=== PATIENT | female | born 1970 | race Caucasian/White ===

== ENCOUNTER 2017-01-07 19:29 | Emergency (ER) | payer MEDICARE ==
[~2017-01-07] VITALS: Ht 162.6 cm; Wt 124.5 kg
[2017-01-07 19:29] VITALS: BP 143/62
[~2017-01-07 19:29] MED LIST: /ESOM40CA PO; ALBU17IN INH; ALBU83IN NEB; ALPR0.5T PO; ALPR0.5T3 PO; ATEN100T PO; BUPR150T3 PO; CARI350T19 PO; COLA100C5 PO; HYDR-3716 PO; HYDR7.5T38 PO; IBUP-1022 PO; IBUP80TA PO; LEVA750T7 PO; LEVO125T3 PO; NEXI40CA PO; NORC1TAB4 PO; NORT25CA2 PO; PARO40TA PO; PARO40TA3 PO; PRED10PA PO; PRIN10TA PO; SUMA50TA2 PO; SYNT137T7 PO; VENL75CA47 PO; VICO5TAB16 PO; VITA500055 PO; VITATAB73 PO; ZETI10TA30 PO
[2017-01-07] MEDS ORDERED: prednisoLONE (PRELONE) 15MG/5ML SYRUP UDC PO ONE (20:00)
[2017-01-07] MEDS ORDERED: LIDOCAINE VISCOUS 2% SOLN 15ML UDC PO ONE (20:30)
== END 2017-01-07 20:41 | disposition home or self-care (01) ==
LOC: M ED 19:29
DX: B34.9 Viral infection, unspecified (principal); I10 Essential (primary) hypertension; G43.909 Migraine, unspecified, not intractable, without status migrainosus; E07.9 Disorder of thyroid, unspecified; Z79.899 Other long term (current) drug therapy; Z88.0 Allergy status to penicillin; Z88.8 Allergy status to other drugs, medicaments and biological substances; Z91.041 Radiographic dye allergy status

== ENCOUNTER 2017-02-23 10:53 | Inpatient (IN) | payer MEDICARE ==
[~2017-02-23] VITALS: Ht 160 cm; Wt 123.6 kg
[2017-02-23 11:19] LABS: BASO % 0.8 % (0.0-1.0); EOS # 0.3 K/mm3 (0.0-0.50); EOS % 4.3 % (0.0-3.0); LARGE UNSTAINED CELL # 0.2 K/mm3 (0.0-0.4); LARGE UNSTAINED CELL % 2.3 % (0.0-4.0); LYMPH % 30.5 % (24.0-44.0); MEAN CORPUSCULAR HEMOGLOBIN 27.7 pg (27.0-33.0); MEAN CORPUSCULAR HGB CONC 32.5 g/dl (32.0-36.5); MEAN CORPUSCULAR VOLUME 85.3 fl (80.0-96.0); MONO # 0.4 K/mm3 (0.0-0.8); MONO % 6.2 % (0.0-5.0); NEUTROPHILS # 3.8 K/mm3 (1.8-7.7); PLATELET COUNT, AUTOMATED 275 k/mm3 (150-450); RED CELL DISTRIBUTION WIDTH 14.2 % (11.5-14.5); WHITE BLOOD COUNT 6.7 K/mm3 (4.0-10.0)
[2017-02-23 11:25] LABS: INR 0.94
[2017-02-23 11:34] LABS: CONTROL LINE HCG INT CTR LINE PRESENT
[2017-02-23 11:44] LABS: ALBUMIN 3.1 GM/DL (3.2-5.2); ALBUMIN/GLOBULIN RATIO 0.84 (1.00-1.93); ALKALINE PHOSPHATASE 88 U/L (45-117); ALT/SGPT 108 U/L (12-78); ANION GAP 7 MEQ/L (8-16); AST/SGOT 79 U/L (15-37); BILIRUBIN,DIRECT 0.1 MG/DL (0.0-0.2); BILIRUBIN,TOTAL 0.3 MG/DL (0.2-1.0); BLOOD UREA NITROGEN 6 MG/DL (7-18); CALCIUM LEVEL 8.4 MG/DL (8.5-10.1); CARBON DIOXIDE LEVEL 30 MEQ/L (21-32); CHLORIDE LEVEL 108 MEQ/L (98-107); CREATININE FOR GFR 0.74 MG/DL (0.55-1.02); FREE T4 1.19 NG/DL (0.76-1.46); GLOMERULAR FILTRATION RATE > 60.0 (>58); GLUCOSE, FASTING 82 MG/DL (70-105); SODIUM LEVEL 145 MEQ/L (136-145); TOTAL PROTEIN 6.8 GM/DL (6.4-8.2)
[2017-02-23] MEDS ORDERED: NITROGLYCERIN 0.4 MG SUBL TABLET SL PRN (12:30)
[2017-02-23] MEDS ORDERED: ASPIRIN 81 MG CHEW TABLET PO ONE (12:30)
[2017-02-23 12:35] VITALS: BP 131/60
[2017-02-23] MEDS ORDERED: ACETAMINOPHEN TAB 650MG DOSE (2X325MG) As Ordered ONE (12:47)
[2017-02-23] MEDS ORDERED: ACETAMINOPHEN TAB 650MG DOSE (2X325MG) PO ONE (13:00)
[2017-02-23] MEDS ORDERED: ONDANSETRON 4MG/2ML VIAL (J2405) IV PRN (14:00)
[2017-02-23] MEDS ORDERED: ACETAMINOPHEN TAB 650MG DOSE (2X325MG) PO PRN (14:00)
[2017-02-23] MEDS ORDERED: MAGIC MOUTHWASH SUSPENSION BTL SS PRN (14:00)
[2017-02-23] MEDS ORDERED: HYDR-3713 PO (14:01)
[2017-02-23] MEDS ORDERED: SYNT137T7 PO (14:01)
[2017-02-23] MEDS ORDERED: FLIN1CHW PO (14:02)
[2017-02-23] MEDS ORDERED: ALPRAZolam 0.5 MG TAB PO PRN ×2 (14:15)
--- NOTE | 2017-02-23 14:48 | HPE ---
DATE OF ADMISSION: 02/23/2017 This is a patient of Dr. Mehdi Harris. Health Information Systems Technician is Dr. Chin. CHIEF COMPLAINT: Chest pain. HISTORY OF PRESENT ILLNESS: This is a 46-year-old female who developed leg pain approximately on 02/14/2017 which was prior to a car trip in her brand [facility] to [facility] where she was [place] drive [place]. She arrived in [facility] and found that her grandmother had back in [place], so after an exceedingly short stay they drove back again to the [facility] to attend the which is scheduled for tomorrow. She has developed bilateral lower extremity swelling which has been intermittent. It is better now. She has had chest discomfort which she describes as pressure-like, associated with shortness of breath. It has radiated to her neck and jaw. It again comes and goes. She has obstructive sleep apnea and has not been compliant with her machine for two months and she has had recent upper respiratory infections and sore throat which have been treated with antibiotics and Valtrex. She does also take care of young children when she is home. ALLERGIES: She has allergies reported to IV CONTRAST MEDIA which causes rash and difficulty in breathing, DULOXETINE and PENICILLIN. MEDICATIONS AT HOME: Are listed as Zetia, Paxil, Xanax as needed and at bedtime, Nexium, atenolol, ibuprofen, vitamin D. PAST MEDICAL HISTORY: Notable for: 1. Anxiety. 2. Chronic back pain. 3. Depression. 4. Gastroesophageal reflux disease (GERD). 5. Hypothyroidism. 6. Obstructive sleep apnea on continuous positive airway pressure (CPAP). 7. Mitral valve prolapse. 8. Lung nodules, which she follows with Dr. Chin. 9. Irritable bowel syndrome. 10. Fibromyalgia. 11. Hypoglycemia earlier this year. 12. She has morbid obesity and is planned for gastric bypass surgery in early April of 2017. PAST SURGICAL HISTORY: Notable for: 1. Hysterectomy. 2. Cholecystectomy. 3. Appendectomy. 4. Cyst removed from her hand. 5. Tonsillectomy. 6. Hernia repair. SOCIAL HISTORY: The patient is not a smoker. She occasionally drinks alcohol. She is a life-long [facility] resident. FAMILY HISTORY: Notable for a mother who is 62 with a history of heart disease and diabetes. A father who is 67 with a history of heart disease, diabetes, and currently under lung cancer treatment. REVIEW OF SYSTEMS: Notable for no fever. No chills. No sputum production. She has chest pain. No orthopnea but she does have intermittent episodes of palpitations at rest, not associated with anxiety although she does say she has been under a lot of stress related to the recent drive and the of her grandmother. No diarrhea. No change in her urinary symptoms. No focal weakness. Otherwise unremarkable. PHYSICAL EXAMINATION: Temperature is 97.8, pulse is 54. She is in sinus on the monitor and on EKG. Respiratory 16, blood pressure 128/78, 98% on room air. Body mass index is not recorded but her weight is 124 kg. She is awake, pleasantly conversant, in no acute distress, alert and oriented times three. Sinuses are nontender. Pupils are equal, round, and reactive. Mucous membranes are moist. She has a single ulcer on the right side of her soft palate. She has no tonsils. There is no erythema or exudate in her oropharynx. Neck is supple. No cervical or supraclavicular adenopathy, but thick. Breathing is symmetrical. I:E ratio is 1:3. Distant sounding. No wheezes, rales, or rhonchi No costovertebral angle (CVA) tenderness. No sacral edema. Heart is distant sounding, normal S1, S2, is bradycardic. Radial pulses are 2+, capillary refill is less than two seconds. She has a number of high quality tattoos. Abdomen is soft, doughy, nontender. There is trace bilateral lower extremity edema. Strength is symmetrical in the upper and lower extremities. She has a normal mood and affect. LABORATORY DATA: Sodium is 145, potassium 4, chloride 108, carbon dioxide 30, BUN 6, creatinine 0.74, and glucose of 82. AST of 79, ALT 108. CK and troponin are negative. BNP is 208. TSH is 6.85 and free T4 is within normal limits. HCG is negative. D-dimer was elevated to 517. Lower extremity Doppler is unremarkable. Chest x-ray shows no infiltrate. It is difficult to interpret due to body habitus. ASSESSMENT: This is a 46-year-old with chest pain. Pulmonary embolism must be considered. The patient is admitted for observation status to further elucidate the cause of this discomfort. The patient is currently pain free. PLAN: 1. Respiratory. Nuclear medicine scan is ordered for tomorrow. I have started the patient on Eliquis. There is no evidence of deep vein thrombosis (DVT) in the lower extremities. I believe that her symptoms are most likely related to untreated sleep apnea and perhaps anxiety but we will rule out pulmonary embolism and begin treatment for the same. Also, we will cycle troponins and monitor her on telemetry. She is bradycardic. We will withhold her beta blockade and should consider a lower dose at the time of discharge. 2. The patient has hypothyroidism and would appear to be appropriately treated, although she is not on a recorded Synthroid dose. This can be checked with the pharmacy team. 3. The patient has a history of depression. We will continue her Paxil. We will also continue her Xanax as previously ordered. We will give Tylenol as needed for pain in the setting of chronic benzodiazepine use. 4. I have asked for the patient to bring in her continuous positive airway pressure (CPAP) machine from home and we will as the respiratory therapist to assist her with its use. 5. The patient has a history of lung nodules. She follows with Dr. Chin. 6. The patient has morbid obesity which complicates care. 7. Social. The patient is planning to leave sometime tomorrow afternoon to attend her grandmother's . Hopefully, medical workup will be done by that time.
[2017-02-23] MEDS: APIXABAN 5 MG TAB (ELIQUIS) PO SCH ×2 (15:00→21:30)
[2017-02-23] MEDS ORDERED: valACYclovir HCL 500 MG TAB PO SCH (17:00)
[2017-02-23 19:00] VITALS: BP 128/66
[2017-02-23 20:09] VITALS: BP 130/70
[2017-02-23] MEDS ORDERED: EZETIMIBE 10 MG TAB (ZETIA) PO SCH (21:00)
[2017-02-23] MEDS ORDERED: PANTOPRAZOLE 40MG TAB (PROTONIX) PO SCH (21:00)
[2017-02-23] MEDS ORDERED: PARoxetine 20 MG TAB PO SCH (21:00)
--- NOTE | 2017-02-23 21:38 | ECGEPIP ---
Stationary ECG Study [facility] - ED Test Date: 2017-02-23 Pat Name: ISAÍAS HARDING Department: Room: - Gender: F Mail Service Coordinator: SCHUYLER : 1970 Requested By: LAYNE Ordonez Order Number: [id number] Reading MD: Sonam Odonnell Measurements Intervals [place] Rate: 50 P: 17 WV: 150 QRS: 12 QRSD: 97 T: 7 QT: 448 QTc: 411 Interpretive Statements SINUS BRADYCARDIA NSTTW ABNORMALITY DECREASED RATE 06/26/16 Electronically Signed On 02-23-2017 21:38:05 EDT by Sonam Odonnell
--- NOTE | 2017-02-23 21:45 | ECGEPIP ---
Stationary ECG Study [facility] - ED Test Date: 2017-02-23 Pat Name: ISAÍAS HARDING Department: Room: [place] [address] Gender: F Oncology Physician: haim : 1970 Requested By: KEVIN Muñoz Order Number: [id number] Reading MD: Sonam Odonnell Measurements Intervals [place] Rate: 53 P: 25 WV: 148 QRS: 15 QRSD: 104 T: 7 QT: 458 QTc: 432 Interpretive Statements SINUS BRADYCARDIA NSTTW ABNORMALITY PRWP SIMILAR 11:06 Electronically Signed On 02-23-2017 21:44:57 EDT by Sonam Odonnell
[2017-02-23 23:58] VITALS: BP 126/69
[2017-02-24 05:05] VITALS: BP 137/65
[2017-02-24 05:32] LABS: MEAN CORPUSCULAR HEMOGLOBIN 27.7 pg (27.0-33.0); MEAN CORPUSCULAR HGB CONC 32.3 g/dl (32.0-36.5); MEAN CORPUSCULAR VOLUME 85.7 fl (80.0-96.0); RED CELL DISTRIBUTION WIDTH 14.3 % (11.5-14.5); WHITE BLOOD COUNT 7.2 K/mm3 (4.0-10.0)
[2017-02-24 05:59] LABS: ANION GAP 9 MEQ/L (8-16); BLOOD UREA NITROGEN 8 MG/DL (7-18); CALCIUM LEVEL 8.4 MG/DL (8.5-10.1); CARBON DIOXIDE LEVEL 27 MEQ/L (21-32); CHLORIDE LEVEL 110 MEQ/L (98-107); CREATININE FOR GFR 0.65 MG/DL (0.55-1.02); GLOMERULAR FILTRATION RATE > 60.0 (>58); GLUCOSE, FASTING 114 MG/DL (70-105); MAGNESIUM LEVEL 2.2 MG/DL (1.8-2.4); POTASSIUM SERUM 3.5 MEQ/L (3.5-5.1); SODIUM LEVEL 146 MEQ/L (136-145)
[2017-02-24 07:15] VITALS: BP 117/55
--- NOTE | 2017-02-24 08:13 | ECGEPIP ---
Stationary ECG Study [facility] Test Date: 2017-02-24 Pat Name: ISAÍAS HARDING Department: Room: - Gender: F Stamping Operator: SAMEER : 1970 Requested By: JUAN Lynn Order Number: [id number] Reading MD: Nazia Wheeler Measurements Intervals [place] Rate: 53 P: 27 NV: 146 QRS: 10 QRSD: 94 T: 7 QT: 458 QTc: 431 Interpretive Statements SINUS BRADYCARDIA EARLY REPOLAR CHANGES STABLE C/W 02/23/17 Electronically Signed On 02-24-2017 8:13:09 EDT by Nazia Wheeler
[2017-02-24] MEDS ORDERED: valACYclovir HCL 500 MG TAB PO SCH (09:00)
[2017-02-24] MEDS: APIXABAN 5 MG TAB (ELIQUIS) PO SCH (09:46)
[2017-02-24 12:00] VITALS: BP 136/60
--- NOTE | 2017-02-24 12:44 | REP ---
DUPLEX EXTREMITY VENOUS ULTRASOUND: The bilateral lower extremities. HISTORY: Chest pain. Swelling. Question DVT. FINDINGS: The deep veins are anechoic and fully compressible from the groin to the popliteal fossa in the left and the right lower extremity. Color flow imaging is homogeneous. Spectral Doppler interrogation demonstrates intact respiratory variation in flow and normal manual augmentation of flow. There is no evidence of deep vein thrombosis. IMPRESSION: Negative bilateral lower extremity duplex venous ultrasound. No evidence of deep vein thrombosis. Signed by Alireza So MD 02/24/2017 03:01 P
--- NOTE | 2017-02-24 13:10 | REP ---
Portable chest x-ray: Sitting AP view. History: Chest pain. Findings: EKG monitoring electrodes overlie the chest. Heart is not felt to be enlarged. Exam quality is inhibited by patient body habitus. No infiltrate is seen. Pulmonary vasculature is not increased. Impression: No active disease. Exam quality is limited by patient body habitus. Signed by Alireza So MD 02/24/2017 03:02 P
[2017-02-24] MEDS ORDERED: SLF 3 ML SYR IV PRN (13:15)
[2017-02-24] MEDS ORDERED: SLF 3 ML SYR IV SCH (14:00)
--- NOTE | 2017-02-24 14:03 | REP ---
Ventilation-perfusion lung scan: History: Chest pain. Technique: 1.0 mCi of technetium-99m DTPA aerosol is utilized for the ventilation study and was followed by a 5.5 mCi dose of technetium-99m MAA given intravenously for the perfusion examination. Eight planar images are required for each portion of the study. Scintigraphic findings: The perfusion study shows normal homogeneous perfusion uptake in both lungs. No perfusion defect is seen. Ventilation study shows homogeneous uptake as well. No defect is seen. Impression: Normal ventilation perfusion lung scan. No evidence to suggest pulmonary embolus. Signed by Alireza So MD 02/24/2017 01:55 P
--- NOTE | 2017-02-24 18:33 | DSES ---
DATE OF ADMISSION: 02/23/2017 DATE OF DISCHARGE: 02/24/2017 PRIMARY CARE PROVIDER: Mehdi Harris CONSULTANTS: None. PROCEDURES: None. COMPLICATIONS: None. ADMISSION/DISCHARGE DIAGNOSES: 1. Chest pain. 2. Anxiety. 3. Chronic back pain. 4. Depression. 5. Gastroesophageal reflux disease. 6. Hypothyroidism. 7. Obstructive sleep apnea (RUPAL), on continuous positive airway pressure (CPAP). 8. Mitral valve prolapse. 9. Lung nodules. 10. Irritable bowel syndrome. 11. Fibromyalgia. 12. Morbid obesity. HOSPITALIZATION COURSE: The patient is a 46-year-old female who presented to [facility] on 02/23/2017 for leg pain and chest pain after long hours of driving. The patient is being worked up to rule out pulmonary embolism and deep vein thrombosis (DVT). Due to allergies to CT angio dye, the patient is scheduled to have a VQ scan performed. Empirically, the patient was started on Eliquis. Lower extremity ultrasound was performed, which showed no DVT and the patient was monitored on telemetry. On 02/24/2017, the patient had a VQ scan performed. Imaging reviewed with the radiologist, and there was no evidence to suggest pulmonary embolism. The patient was determined medically stable for discharge with recommendation to followup with her primary care provider in 1-2 weeks. OBJECTIVE: VITAL SIGNS: Temperature is 97.3, pulse is 56, respirations 18, blood pressure is 117/55, pulse oximetry is 100% in room air. LABORATORY DATA: WBC 7.2, hemoglobin 12.5, hematocrit 38.5, platelet count is 265. Sodium is 146, potassium 3.5, chloride is 110, carbon dioxide is 27, BUN 8, creatinine 0.65, GFR is greater than 60, fasting glucose is 114, calcium is 8.4, magnesium 2.2. BNP is 208. Total protein 6.8, albumin 3.1, lipase 120, free T4 is 1.19. PT is 12.6, INR is 0.94, D-dimer is 517.2. IMAGING STUDIES: Chest x-ray on 02/23/2017 showed no acute disease. Lower extremity Doppler bilaterally showed negative bilateral lower extremity Doppler venous sonogram. No evidence of DVT. A VQ scan on 02/24/2017 showed normal ventilation/perfusion lung scan. No evidence to suggest pulmonary embolism. DISCHARGE MEDICATIONS: - Percocet one tablet by mouth three times a day as needed - alprazolam 0.5 mg by mouth twice a day as needed for anxiety - atenolol 100 mg by mouth nightly - vitamin D3 5000 units by mouth nightly - Nexium 40 mg by mouth nightly - Zetia 10 mg by mouth nightly - ibuprofen 800 mg by mouth every 8 hours as needed - Synthroid 137 mcg by mouth nightly - paroxetine 40 mg by mouth nightly DISCHARGE INSTRUCTIONS: Discontinue lines. Discharge home. Activity as tolerated. Diet as tolerated. Patient should followup with her primary care provider, Dr. Mehdi Harris, in 1-2 weeks. DISCHARGE CONDITION: Stable. DISCHARGE TIME: Greater than 30 minutes.
== END 2017-02-24 14:44 | disposition home or self-care (01) | DRG 313 ==
LOC: M ED 10:53 → M ED INP 13:53 → M PCU 18:45
PROVIDERS: ADMIT Internal Medicine; ATTEND Internal Medicine
DX: R07.9 Chest pain, unspecified (principal); Z68.42 Body mass index [BMI] 45.0-49.9, adult; F41.9 Anxiety disorder, unspecified; F32.9 Major depressive disorder, single episode, unspecified; K21.9 Gastro-esophageal reflux disease without esophagitis; E03.9 Hypothyroidism, unspecified; G47.33 Obstructive sleep apnea (adult) (pediatric); Z99.89 Dependence on other enabling machines and devices; R91.8 Other nonspecific abnormal finding of lung field; M79.7 Fibromyalgia; E66.01 Morbid (severe) obesity due to excess calories; Z91.041 Radiographic dye allergy status; Z88.0 Allergy status to penicillin; Z88.8 Allergy status to other drugs, medicaments and biological substances; Z90.710 Acquired absence of both cervix and uterus; Z90.49 Acquired absence of other specified parts of digestive tract; I34.1 Nonrheumatic mitral (valve) prolapse; K58.9 Irritable bowel syndrome, unspecified; Z82.49 Family history of ischemic heart disease and other diseases of the circulatory system; Z83.3 Family history of diabetes mellitus

== ENCOUNTER 2017-07-07 17:50 | Emergency (ER) | payer MEDICARE ==
[2017-07-07] MEDS: ASPIRIN 81 MG CHEW TABLET PO (18:55)
[2017-07-07 19:02] LABS: BASO # 0.1 10^3/uL (0.0-0.2); BASO % 0.7 % (0.0-1.0); EOS # 0.4 10^3/uL (0.0-0.50); EOS % 3.6 % (0.0-3.0); HEMATOCRIT 41.8 % (36.0-47.0); HEMOGLOBIN 13.4 g/dl (12.0-16.0); IMMATURE GRANULOCYTE % 0.4 % (0-0); LYMPH # 2.6 10^3/uL (1.5-4.5); LYMPH % 26.5 % (24.0-44.0); MEAN CORPUSCULAR HEMOGLOBIN 26.6 pg (27.0-33.0); MEAN CORPUSCULAR HGB CONC 32.1 g/dl (32.0-36.5); MEAN CORPUSCULAR VOLUME 83.1 fl (80.0-96.0); MONO # 0.7 10^3/uL (0.0-0.8); NEUTROPHILS # 6.1 10^3/uL (1.8-7.7); NEUTROPHILS % 61.8 % (36.0-66.0); PLATELET COUNT, AUTOMATED 349 10^3/uL (150-450); RED BLOOD COUNT 5.03 10^6/uL (4.00-5.40); RED CELL DISTRIBUTION WIDTH 13.6 % (11.5-14.5); WHITE BLOOD COUNT 9.9 10^3/uL (4.0-10.0)
[2017-07-07 19:12] LABS: VENOUS BASE EXCESS 2.8 (-2.0-2.0); VENOUS HCO3 29.1 MEQ/L (23.0-27.0); VENOUS PARTIAL PRESSURE CO2 51.5 mmHg (38.0-50.0); VENOUS PARTIAL PRESSURE O2 43.7 mmHg (30.0-50.0); VENOUS STANDARD HCO3 26.4 MEQ/L; VENOUS TOTAL CO2 30.7 MEQ/L (24.0-28.0)
[2017-07-07 19:33] LABS: NT-PRO BNP 54 PG/ML (<125)
[2017-07-07 19:35] LABS: ALBUMIN 3.1 GM/DL (3.2-5.2); ALBUMIN/GLOBULIN RATIO 0.72 (1.00-1.93); ALKALINE PHOSPHATASE 111 U/L (45-117); ALT/SGPT 162 U/L (12-78); ANION GAP 7 MEQ/L (8-16); AST/SGOT 109 U/L (7-37); BILIRUBIN,DIRECT < 0.1 MG/DL (0.0-0.2); BILIRUBIN,TOTAL 0.2 MG/DL (0.2-1.0); BLOOD UREA NITROGEN 12 MG/DL (7-18); CALCIUM LEVEL 8.6 MG/DL (8.5-10.1); CARBON DIOXIDE LEVEL 29 MEQ/L (21-32); CHLORIDE LEVEL 105 MEQ/L (98-107); CPK CREATINE PHOSPHOKINASE 98 U/L (26-192); CREATININE FOR GFR 0.76 MG/DL (0.55-1.02); FREE T4 1.04 NG/DL (0.76-1.46); GLOMERULAR FILTRATION RATE > 60.0 (>58); GLUCOSE, FASTING 101 MG/DL (70-105); POTASSIUM SERUM 3.9 MEQ/L (3.5-5.1); SODIUM LEVEL 141 MEQ/L (136-145); TOTAL PROTEIN 7.4 GM/DL (6.4-8.2); TROPONIN I < 0.02 NG/ML (< 0.10)
[2017-07-07 19:40] LABS: CK-MB VALUE MASS 1.1 NG/ML (0.0-3.6); MB/CK RELATIVE INDEX 1.12 (< OR =4)
[2017-07-07] MEDS: ATENOLOL 50 MG TAB PO (20:44)
== END 2017-07-07 20:45 | disposition home or self-care (01) ==
LOC: M ED 17:50
DX: R07.9 Chest pain, unspecified (principal); R00.2 Palpitations; I48.91 Unspecified atrial fibrillation; I10 Essential (primary) hypertension; E78.5 Hyperlipidemia, unspecified; G47.33 Obstructive sleep apnea (adult) (pediatric); G43.909 Migraine, unspecified, not intractable, without status migrainosus; K58.9 Irritable bowel syndrome, unspecified; E03.9 Hypothyroidism, unspecified; F41.9 Anxiety disorder, unspecified; F33.9 Major depressive disorder, recurrent, unspecified; R91.1 Solitary pulmonary nodule; Z82.49 Family history of ischemic heart disease and other diseases of the circulatory system; Z79.899 Other long term (current) drug therapy; Z79.890 Hormone replacement therapy; Z88.0 Allergy status to penicillin; Z88.8 Allergy status to other drugs, medicaments and biological substances; Z91.041 Radiographic dye allergy status
CPT/HCPCS: 71046

== ENCOUNTER → 2017-08-21 | Outpatient (CLI) | payer MEDICARE ==
[2017-08-21 10:09] LABS: HEMATOCRIT 40.4 % (36.0-47.0)
[2017-08-21 10:09] LABS: BASO % 0.7 % (0.0-1.0); EOS # 0.5 10^3/uL (0.0-0.50); EOS % 7.5 % (0.0-3.0); HEMATOCRIT 40.4 % (36.0-47.0); HEMOGLOBIN 12.6 g/dl (12.0-16.0); IMMATURE GRANULOCYTE % 0.2 % (0-3.0); LYMPH # 2.2 10^3/uL (1.5-4.5); LYMPH % 36.5 % (24.0-44.0); MEAN CORPUSCULAR HEMOGLOBIN 26.4 pg (27.0-33.0); MEAN CORPUSCULAR HGB CONC 31.2 g/dl (32.0-36.5); MEAN CORPUSCULAR VOLUME 84.5 fl (80.0-96.0); MONO # 0.6 10^3/uL (0.0-0.8); MONO % 10.2 % (0.0-5.0); NEUTROPHILS # 2.7 10^3/uL (1.8-7.7); NEUTROPHILS % 44.9 % (36.0-66.0); PLATELET COUNT, AUTOMATED 302 10^3/uL (150-450); RED BLOOD COUNT 4.78 10^6/uL (4.00-5.40); RED CELL DISTRIBUTION WIDTH 14.2 % (11.5-14.5)
[2017-08-21 10:37] LABS: ALBUMIN 3.5 GM/DL (3.2-5.2); ALBUMIN/GLOBULIN RATIO 1.09 (1.00-1.93); ALKALINE PHOSPHATASE 100 U/L (45-117); ALT/SGPT 61 U/L (12-78); ANION GAP 6 MEQ/L (8-16); AST/SGOT 48 U/L (7-37); BILIRUBIN,TOTAL 0.5 MG/DL (0.2-1.0); BLOOD UREA NITROGEN 8 MG/DL (7-18); CARBON DIOXIDE LEVEL 31 MEQ/L (21-32); CHLORIDE LEVEL 104 MEQ/L (98-107); CREATININE FOR GFR 0.74 MG/DL (0.55-1.30); ESTIMATED AVERAGE GLUCOSE 114 MG/DL (60-110); FERRITIN 45 NG/ML (8-252); GLOMERULAR FILTRATION RATE > 60.0 (>58); GLUCOSE, FASTING 86 MG/DL (70-100); HEMOGLOBIN A1c 5.6 %; IRON (FE) 45 UG/DL (50-170); MAGNESIUM LEVEL 2.5 MG/DL (1.8-2.4); PHOSPHORUS LEVEL 3.1 MG/DL (2.5-4.9); POTASSIUM SERUM 4.2 MEQ/L (3.5-5.1); SODIUM LEVEL 141 MEQ/L (136-145); TOTAL PROTEIN 6.7 GM/DL (6.4-8.2)
[2017-08-21 10:51] LABS: TOTAL 25(OH) VITAMIN D 69.8 NG/ML (30.0-100.0); VITAMIN B12 LEVEL 1765 PG/ML (247-911)
[2017-08-22 12:52] LABS: PRETREATED FOLATE FOR RBCFOL 10.8 NG/ML; RBC FOLATE 561.4 NG/ML (280-791)
[2017-08-24 14:09] LABS: VITAMIN B1 LEVEL WHOLE BLOOD 131.2 nmol/L (66.5-200.0)
== END ==
LOC: M LAB 09:03
DX: K91.2 Postsurgical malabsorption, not elsewhere classified (principal); Z98.84 Bariatric surgery status; E55.9 Vitamin D deficiency, unspecified
CPT/HCPCS: 83540

== ENCOUNTER 2017-11-23 13:33 | Emergency (ER) | payer MEDICARE ==
[2017-11-23 14:01] LABS: BASO # 0.1 10^3/uL (0.0-0.2); BASO % 0.7 % (0.0-1.0); EOS # 0.2 10^3/uL (0.0-0.50); HEMATOCRIT 41.6 % (36.0-47.0); HEMOGLOBIN 13.6 g/dl (12.0-15.5); IMMATURE GRANULOCYTE % 0.1 % (0-3.0); LYMPH # 2.5 10^3/uL (1.5-4.5); LYMPH % 36.6 % (24.0-44.0); MEAN CORPUSCULAR HEMOGLOBIN 27.6 pg (27.0-33.0); MEAN CORPUSCULAR HGB CONC 32.7 g/dl (32.0-36.5); MEAN CORPUSCULAR VOLUME 84.6 fl (80.0-96.0); MONO # 0.5 10^3/uL (0.0-0.8); MONO % 7.1 % (0.0-5.0); NEUTROPHILS # 3.5 10^3/uL (1.8-7.7); NEUTROPHILS % 52.5 % (36.0-66.0); PLATELET COUNT, AUTOMATED 310 10^3/uL (150-450); RED BLOOD COUNT 4.92 10^6/uL (4.00-5.40); RED CELL DISTRIBUTION WIDTH 15.2 % (11.5-14.5); WHITE BLOOD COUNT 6.7 10^3/uL (4.0-10.0)
[2017-11-23 14:21] LABS: ALBUMIN 3.4 GM/DL (3.2-5.2); ALBUMIN/GLOBULIN RATIO 0.92 (1.00-1.93); ALKALINE PHOSPHATASE 89 U/L (45-117); ALT/SGPT 36 U/L (12-78); ANION GAP 4 MEQ/L (8-16); AST/SGOT 28 U/L (7-37); BILIRUBIN,DIRECT < 0.1 MG/DL (0.0-0.2); BILIRUBIN,TOTAL 0.3 MG/DL (0.2-1.0); BLOOD UREA NITROGEN 9 MG/DL (7-18); CALCIUM LEVEL 8.9 MG/DL (8.5-10.1); CARBON DIOXIDE LEVEL 30 MEQ/L (21-32); CHLORIDE LEVEL 109 MEQ/L (98-107); CPK CREATINE PHOSPHOKINASE 80 U/L (26-192); GLOMERULAR FILTRATION RATE > 60.0 (>58); GLUCOSE, FASTING 97 MG/DL (70-100); LIPASE 86 U/L (73-393); POTASSIUM SERUM 3.8 MEQ/L (3.5-5.1); SODIUM LEVEL 143 MEQ/L (136-145); TOTAL PROTEIN 7.1 GM/DL (6.4-8.2); TROPONIN I < 0.02 NG/ML (< 0.10)
[2017-11-23 14:27] LABS: CK-MB VALUE MASS 1.1 NG/ML (<3.6); MB/CK RELATIVE INDEX 1.37 (< OR =4); NT-PRO BNP 426 PG/ML (<125); THYROID STIMULATING HORMONE 0.244 uIU/ML (0.358-3.740)
[2017-11-23 14:54] LABS: MAGNESIUM LEVEL 2.1 MG/DL (1.8-2.4); PHOSPHORUS LEVEL 3.1 MG/DL (2.5-4.9)
[2017-11-23 15:23] LABS: D-DIMER QUANT 487.5 ng/ml (<500)
[2017-11-23] MEDS: NS 1,000 ML IV (15:31)
[2017-11-23] MEDS: MORPHINE 2 MG/ML 1ML SYRINGE (J2270) IV (15:32)
[2017-11-23 16:01] LABS: FREE THYROXINE INDEX 3.6 % (1.3-4.8); T UPTAKE 36 % (30-39); THYROXINE (T4) 10.1 UG/DL (4.5-12.0)
== END 2017-11-23 16:44 | disposition home or self-care (01) ==
LOC: M ED 13:33
DX: R09.1 Pleurisy (principal); E03.9 Hypothyroidism, unspecified; K59.00 Constipation, unspecified; I10 Essential (primary) hypertension; E78.5 Hyperlipidemia, unspecified; K21.9 Gastro-esophageal reflux disease without esophagitis; F41.9 Anxiety disorder, unspecified; F33.9 Major depressive disorder, recurrent, unspecified; Z98.84 Bariatric surgery status; Z79.899 Other long term (current) drug therapy; Z79.890 Hormone replacement therapy; Z88.0 Allergy status to penicillin; Z88.8 Allergy status to other drugs, medicaments and biological substances; Z91.041 Radiographic dye allergy status
CPT/HCPCS: J2270

== ENCOUNTER → 2018-02-03 | Outpatient (CLI) | payer MEDICARE, MEDICAID ==
[2018-02-03 10:05] LABS: BASO # 0.1 10^3/uL (0.0-0.2); BASO % 1.1 % (0.0-1.0); EOS # 0.2 10^3/uL (0.0-0.50); EOS % 3.4 % (0.0-3.0); HEMATOCRIT 40.5 % (36.0-47.0); HEMOGLOBIN 13.3 g/dl (12.0-15.5); IMMATURE GRANULOCYTE % 0.4 % (0-3.0); LYMPH # 2.2 10^3/uL (1.5-4.5); MEAN CORPUSCULAR HEMOGLOBIN 28.9 pg (27.0-33.0); MEAN CORPUSCULAR HGB CONC 32.8 g/dl (32.0-36.5); MEAN CORPUSCULAR VOLUME 87.9 fl (80.0-96.0); MONO # 0.4 10^3/uL (0.0-0.8); MONO % 7.7 % (0.0-5.0); NEUTROPHILS # 2.7 10^3/uL (1.8-7.7); NEUTROPHILS % 47.4 % (36.0-66.0); PLATELET COUNT, AUTOMATED 290 10^3/uL (150-450); RED BLOOD COUNT 4.61 10^6/uL (4.00-5.40); RED CELL DISTRIBUTION WIDTH 13.8 % (11.5-14.5); WHITE BLOOD COUNT 5.6 10^3/uL (4.0-10.0)
[2018-02-03 10:06] LABS: INR 0.93; PARTIAL THROMBOPLASTIN TIME 33.9 SECONDS (25.4-37.6); PROTHROMBIN TIME 12.6 SECONDS (12.1-14.4)
[2018-02-03 10:44] LABS: ALBUMIN 3.3 GM/DL (3.2-5.2); ALBUMIN/GLOBULIN RATIO 1.06 (1.00-1.93); ALKALINE PHOSPHATASE 89 U/L (45-117); ALT/SGPT 26 U/L (12-78); ANION GAP 8 MEQ/L (8-16); AST/SGOT 17 U/L (7-37); BILIRUBIN,TOTAL 0.4 MG/DL (0.2-1.0); BLOOD UREA NITROGEN 8 MG/DL (7-18); CALCIUM LEVEL 8.8 MG/DL (8.5-10.1); CARBON DIOXIDE LEVEL 29 MEQ/L (21-32); CHLORIDE LEVEL 108 MEQ/L (98-107); CREATININE FOR GFR 0.75 MG/DL (0.55-1.30); GLOMERULAR FILTRATION RATE > 60.0 (>58); GLUCOSE, FASTING 82 MG/DL (70-100); IRON (FE) 90 UG/DL (50-170); PERCENT SATURATION 30.1 % (13.2-45.0); POTASSIUM SERUM 3.9 MEQ/L (3.5-5.1); SODIUM LEVEL 145 MEQ/L (136-145); TOTAL IRON BINDING CAPACITY 299 UG/DL (250-450); TOTAL PROTEIN 6.4 GM/DL (6.4-8.2)
[2018-02-04 09:45] LABS: HEPATITIS B SURFACE ANTIGEN NEGATIVE (NEGATIVE)
[2018-02-04 09:59] LABS: HEPATITIS B SURFACE ANTIBODY NEGATIVE (POSITIVE)
[2018-02-04 10:04] LABS: HEPATITIS C VIRUS ABY INDEX 0.3 INDEX (<0.8)
[2018-02-04 14:17] LABS: ALPHA 1 ANTITRYPSIN 128 mg/dL (90-200)
[2018-02-06 00:11] LABS: ANTI-SMOOTH MUSCLE ANTIBODY 4 Units (0-19)
[2018-02-06 00:11] LABS: ANTI-MITOCHONDRIAL ANTIBODY 1.4 Units (0.0-20.0); ANTINUCLEAR ANTIBODIES DIRECT Negative (Negative); CERULOPLASMIN 28.2 mg/dL (19.0-39.0); COPPER PLASMA 114 ug/dL (72-166); LIVER-KIDNEY MICROSOMAL ABY 1.4 Units (0.0-20.0); TISSUE TRANSGLUTAMINASE IgA <2 U/mL (0-3)
[2018-02-06 14:53] LABS: F-ACTIN IgG AUTOANTIBODIES 6.8 UNITS
== END ==
LOC: M RAD 08:22
DX: R74.9 Abnormal serum enzyme level, unspecified (principal); K76.0 Fatty (change of) liver, not elsewhere classified; Z90.49 Acquired absence of other specified parts of digestive tract; K59.00 Constipation, unspecified
CPT/HCPCS: 76700

== ENCOUNTER → 2018-04-21 | Outpatient (CLI) | payer MEDICARE, MEDICAID | LOC: M PAIN 09:30 | DX: M54.14 Radiculopathy, thoracic region (principal); M45.9 Ankylosing spondylitis of unspecified sites in spine; M79.7 Fibromyalgia; M06.9 Rheumatoid arthritis, unspecified; F32.9 Major depressive disorder, single episode, unspecified; F41.9 Anxiety disorder, unspecified; K74.60 Unspecified cirrhosis of liver; Z79.891 Long term (current) use of opiate analgesic; Z79.899 Other long term (current) drug therapy; Z88.0 Allergy status to penicillin; Z88.6 Allergy status to analgesic agent; Z91.041 Radiographic dye allergy status; Z98.84 Bariatric surgery status; Z86.79 Personal history of other diseases of the circulatory system | CPT/HCPCS: G0463 ==

== ENCOUNTER → 2018-08-17 | Outpatient (CLI) | payer MEDICARE ==
[~2018-08-17] MED LIST changes: +FLIN1CHW PO; +HYDR-3713 PO; +OMEP40CA2
--- NOTE | 2018-08-17 14:27 | REP ---
RIGHT HAND SERIES: Four views of the right hand are performed. There is an old healed fracture of the distal 5th metacarpal. I see no acute fracture or dislocation. Joint spaces do not appear to be significantly narrowed. Osseous structures of the 4th and 5th digits are somewhat osteopenic. IMPRESSION: Old healed fracture distal 5th metacarpal.
== END ==
LOC: M CLY 10:34
PROVIDERS: ATTEND Family Medicine
DX: S62.306D Unspecified fracture of fifth metacarpal bone, right hand, subsequent encounter for fracture with routine healing (principal); M79.641 Pain in right hand

== ENCOUNTER → 2018-11-25 | Outpatient (REF) | payer MEDICARE, MEDICAID ==
[~2018-11-25] MED LIST changes: -/ESOM40CA PO; +NEXI1CAP3 PO; -NORC1TAB4 PO; +NORC1TAB7 PO; -VICO5TAB16 PO; +VICO5TAB17 PO
[2018-11-25 11:47] LABS: BASO # 0.1 10^3/uL (0.0-0.2); BASO % 0.9 % (0.0-1.0); EOS # 0.2 10^3/uL (0.0-0.50); EOS % 3.6 % (0.0-3.0); HEMATOCRIT 43.7 % (36.0-47.0); LYMPH # 2.5 10^3/uL (1.5-4.5); LYMPH % 37.9 % (24.0-44.0); MEAN CORPUSCULAR HEMOGLOBIN 28.1 pg (27.0-33.0); MEAN CORPUSCULAR VOLUME 87.6 fl (80.0-96.0); MONO # 0.4 10^3/uL (0.0-0.8); MONO % 6.7 % (0.0-5.0); NEUTROPHILS # 3.3 10^3/uL (1.8-7.7); NEUTROPHILS % 50.4 % (36.0-66.0); PLATELET COUNT, AUTOMATED 335 10^3/uL (150-450); RED BLOOD COUNT 4.99 10^6/uL (4.00-5.40); WHITE BLOOD COUNT 6.6 10^3/uL (4.0-10.0)
[2018-11-25 12:07] LABS: ERYTHROCYTE SEDIMENTATION RATE 17 mm/hr (0-20)
== END ==
LOC: M SFHCPLAZ 09:44
PROVIDERS: ATTEND Internal Medicine Rheumatology
DX: Z87.39 Personal history of other diseases of the musculoskeletal system and connective tissue (principal)

== ENCOUNTER → 2018-12-16 | Outpatient (REF) | payer MEDICARE | LOC: M SFHCCLAY 09:10 | PROVIDERS: ATTEND Family Medicine | DX: E03.9 Hypothyroidism, unspecified (principal) ==

== ENCOUNTER 2019-02-16 17:24 | Emergency (ER) | payer MEDICARE ==
[~2019-02-16] VITALS: Ht 162.6 cm; Wt 95.0 kg
[~2019-02-16 17:24] MED LIST changes: +ZETI10TA16 PO; -ZETI10TA30 PO
[2019-02-16] MEDS ORDERED: MULTCAP PO (17:35)
[2019-02-16] MEDS ORDERED: B-12100010 PO (17:35)
[2019-02-16] MEDS ORDERED: ACETAMINOPHEN 325 MG TAB PO ONE (18:30)
[2019-02-16 18:34] LABS: HEMATOCRIT 43.5 % (36.0-47.0); HEMOGLOBIN 14.2 g/dl (12.0-15.5); MEAN CORPUSCULAR HGB CONC 32.6 g/dl (32.0-36.5); MEAN CORPUSCULAR VOLUME 88.8 fl (80.0-96.0); PLATELET COUNT, AUTOMATED 339 10^3/uL (150-450); WHITE BLOOD COUNT 7.9 10^3/uL (4.0-10.0)
[2019-02-16 19:00] LABS: ACETAMINOPHEN LEVEL < 2.0 UG/ML (10.0-30.0); ALBUMIN 3.5 GM/DL (3.2-5.2); ALT/SGPT 25 U/L (12-78); BILIRUBIN,DIRECT < 0.1 MG/DL (0.0-0.2); BILIRUBIN,TOTAL 0.2 MG/DL (0.2-1.0); BLOOD UREA NITROGEN 8 MG/DL (7-18); CALCIUM LEVEL 8.7 MG/DL (8.5-10.1); CARBON DIOXIDE LEVEL 27 MEQ/L (21-32); CHLORIDE LEVEL 107 MEQ/L (98-107); CREATININE FOR GFR 0.79 MG/DL (0.55-1.30); ETHYL ALCOHOL (ETHANOL) 0.003 % (0.000-0.010); GLOMERULAR FILTRATION RATE > 60.0 (>58); GLUCOSE, FASTING 89 MG/DL (70-100); POTASSIUM SERUM 4.1 MEQ/L (3.5-5.1); SALICYLATE LEVEL < 1.7 MG/DL (5.0-30.0); SODIUM LEVEL 142 MEQ/L (136-145); TOTAL PROTEIN 6.7 GM/DL (6.4-8.2)
[2019-02-16] MEDS ORDERED: ALPRAZolam 0.25 MG TAB PO ONE (19:15)
[2019-02-16 19:37] LABS: AMPHETAMINES LEVEL URINE NEGATIVE (NEGATIVE); BARBITURATES URINE NEGATIVE (NEGATIVE); BENZODIAZEPINES URINE POSITIVE (NEGATIVE); CANNABINOIDS URINE NEGATIVE (NEGATIVE); COCAINE METABOLITE URINE NEGATIVE (NEGATIVE); METHADONE URINE NEGATIVE (NEGATIVE); OPIATES URINE NEGATIVE (NEGATIVE); PHENCYCLIDINE URINE NEGATIVE (NEGATIVE)
[2019-02-16 20:18] VITALS: BP 127/86
== END 2019-02-16 20:46 | disposition home or self-care (01) ==
LOC: M ED 17:24
DX: F43.0 Acute stress reaction (principal); R45.851 Suicidal ideations; F33.9 Major depressive disorder, recurrent, unspecified; Z79.899 Other long term (current) drug therapy; Z88.0 Allergy status to penicillin; Z88.8 Allergy status to other drugs, medicaments and biological substances; Z91.041 Radiographic dye allergy status
CPT/HCPCS: 36415; 80048; 80076; 80307; 84443; 85027; 99284; G0480

== ENCOUNTER → 2019-04-27 | Outpatient (CLI) | payer MEDICARE ==
[~2019-04-27] MED LIST changes: +B-12100010 PO; +MULTCAP PO; -OMEP40CA2; +OMEP40CA97
[2019-04-27 14:06] LABS: BLOOD UREA NITROGEN 8 MG/DL (7-18); CALCIUM LEVEL 9.4 MG/DL (8.5-10.1); CARBON DIOXIDE LEVEL 29 MEQ/L (21-32); CHLORIDE LEVEL 106 MEQ/L (98-107); CREATININE FOR GFR 0.75 MG/DL (0.55-1.30); GLOMERULAR FILTRATION RATE > 60.0 (>58); GLUCOSE, FASTING 81 MG/DL (70-100); POTASSIUM SERUM 4.4 MEQ/L (3.5-5.1); SODIUM LEVEL 142 MEQ/L (136-145)
== END ==
LOC: M WUC 11:34
PROVIDERS: ATTEND Family Medicine
DX: Z01.812 Encounter for preprocedural laboratory examination (principal)

== ENCOUNTER → 2019-05-05 | Outpatient (REF) | payer MEDICARE | LOC: M SFHCCLAY 12:34 | PROVIDERS: ATTEND Family Medicine | DX: N39.0 Urinary tract infection, site not specified (principal) ==

== ENCOUNTER 2019-05-23 22:16 | Emergency (ER) | payer MEDICARE ==
[~2019-05-23] VITALS: Ht 162.6 cm; Wt 96.9 kg
[2019-05-23] MEDS ORDERED: ONDANSETRON 4MG/2ML VIAL (J2405) IV ONE (22:45)
[2019-05-23] MEDS ORDERED: NS 1,000 ML IV ONE (22:45)
[2019-05-23] MEDS ORDERED: PRAZ1CAP PO (22:46)
[2019-05-23] MEDS ORDERED: METO1TAB87 PO (22:46)
[2019-05-23] MEDS ORDERED: OXYC1TAB23 PO (22:46)
[2019-05-23] MEDS ORDERED: HYDR-3363 PO (22:46)
[2019-05-23 22:47] LABS: BASO # 0.1 10^3/uL (0.0-0.2); EOS # 0.4 10^3/uL (0.0-0.5); EOS % 4.2 % (0.0-3.0); HEMOGLOBIN 12.3 g/dl (12.0-15.5); LYMPH # 3.2 10^3/uL (1.5-5.0); LYMPH % 39.1 % (24.0-44.0); MEAN CORPUSCULAR HEMOGLOBIN 27.8 pg (27.0-33.0); MEAN CORPUSCULAR HGB CONC 31.5 g/dl (32.0-36.5); MEAN CORPUSCULAR VOLUME 88.2 fl (80.0-96.0); MONO # 0.6 10^3/uL (0.0-0.8); MONO % 7.4 % (0.0-5.0); NEUTROPHILS % 47.9 % (36.0-66.0); PLATELET COUNT, AUTOMATED 266 10^3/uL (150-450); RED BLOOD COUNT 4.42 10^6/uL (4.00-5.40); WHITE BLOOD COUNT 8.3 10^3/uL (4.0-10.0)
[2019-05-23 22:57] LABS: INR 1.07; PROTHROMBIN TIME 13.6 SECONDS (11.8-14.0)
[2019-05-23] MEDS ORDERED: methylPREDNISolone INJ 125 MG/2 ML VIAL (J2930) IV ONE (23:00)
[2019-05-23] MEDS ORDERED: diphenhydrAMINE INJ 50MG/ML VIAL (J1200) IV ONE (23:00)
[2019-05-23 23:15] LABS: BLOOD UREA NITROGEN 9 MG/DL (7-18); CALCIUM LEVEL 7.8 MG/DL (8.5-10.1); CARBON DIOXIDE LEVEL 27 MEQ/L (21-32); CHLORIDE LEVEL 111 MEQ/L (98-107); CK-MB VALUE MASS < 1.0 NG/ML (<3.6); CPK CREATINE PHOSPHOKINASE 71 U/L (26-192); CREATININE FOR GFR 0.98 MG/DL (0.55-1.30); GLOMERULAR FILTRATION RATE > 60.0 (>58); GLUCOSE, FASTING 89 MG/DL (70-100); MB/CK RELATIVE INDEX 1.41 (< OR =4); POTASSIUM SERUM 3.3 MEQ/L (3.5-5.1); SODIUM LEVEL 143 MEQ/L (136-145); TROPONIN I < 0.02 NG/ML (< 0.10)
[2019-05-24] MEDS: READI-CAT 2 PO SCH ×2 (00:25→00:38)
[2019-05-24 00:28] LABS: FREE T4 0.82 NG/DL (0.76-1.46)
[2019-05-24] MEDS ORDERED: ISOVUE-370 76% 100ML VIAL (Q9967) As Ordered ONE (00:40)
--- NOTE | 2019-05-24 02:53 | REPVR ---
PROCEDURE INFORMATION: Exam: CT Cervical Spine Without Contrast Exam date and time: 05/24/2019 2:13 AM Clinical history: 49 years old, female; Neck pain; Additional info: Headache, syncope TECHNIQUE: Imaging protocol: Computed tomography images of the cervical spine without contrast. Radiation optimization: All CT scans at this facility use at least one of these dose optimization techniques: automated exposure control; mA and/or kV adjustment per patient size (includes targeted exams where dose is matched to clinical indication); or iterative reconstruction. COMPARISON: CT Spine,cervical w/o contrast 03/31/2015 1:30 PM FINDINGS: Vertebrae: No acute fracture. Normal alignment. Discs/Spinal canal/Neural foramina: No spinal stenosis. No neural foraminal narrowing. Soft tissues: Unremarkable. Lungs: Minimal patchy infiltrate and atelectasis or scar in the right apex. IMPRESSION: 1. Minimal patchy infiltrate and atelectasis or scar in the right apex. 2. Otherwise negative CT cervical spine. No fracture or subluxation is evident and no spinal or foraminal stenosis. Electronically signed by: Albino Jackson On 05/24/2019 02:52:50 AM
--- NOTE | 2019-05-24 02:55 | REPVR ---
PROCEDURE INFORMATION: Exam: CT Head Without Contrast Exam date and time: 05/24/2019 2:13 AM Clinical history: 49 years old, female; Syncope and collapse; Additional info: Headache, syncope TECHNIQUE: Imaging protocol: Computed tomography of the head without contrast. Radiation optimization: All CT scans at this facility use at least one of these dose optimization techniques: automated exposure control; mA and/or kV adjustment per patient size (includes targeted exams where dose is matched to clinical indication); or iterative reconstruction. COMPARISON: CT Head without contrast 05/09/2016 11:58 AM FINDINGS: Brain: Normal. No hemorrhage. Unremarkable white matter. No mass effect. Ventricles: Normal. No ventriculomegaly. Bones/joints: Unremarkable. No acute fracture. Sinuses: Visualized sinuses are unremarkable. No fluid levels. Mastoid air cells: Visualized mastoid air cells are well aerated. Soft tissues: Unremarkable. IMPRESSION: Negative noncontrast head CT without change from 05/09/2016. Electronically signed by: Albino Jackson On 05/24/2019 02:55:28 AM
--- NOTE | 2019-05-24 03:00 | REPVR ---
PROCEDURE INFORMATION: Exam: CT Abdomen And Pelvis With Contrast Exam date and time: 05/24/2019 2:13 AM Clinical history: 49 years old, female; Abdominal pain; Generalized; Additional info: Syncope, generalized abd pain TECHNIQUE: Imaging protocol: Computed tomography of the abdomen and pelvis with intravenous contrast. Radiation optimization: All CT scans at this facility use at least one of these dose optimization techniques: automated exposure control; mA and/or kV adjustment per patient size (includes targeted exams where dose is matched to clinical indication); or iterative reconstruction. Contrast material: ISOVUE 370; Contrast volume: 100 ml; Contrast route: IV; COMPARISON: CT ABD PELVIS W/O CONTRAST 11/09/2013 6:36 AM FINDINGS: Lungs: Minimal bilateral lower lobe dependent atelectasis. Liver: The liver attenuation is 69 Hounsfield units and the spleen is 116 Hounsfield units. Gallbladder and bile ducts: Status post cholecystectomy. Pancreas: Normal. No ductal dilation. Spleen: Normal. No splenomegaly. Adrenals: Normal. No mass. Kidneys and ureters: Normal. No hydronephrosis. Stomach and bowel: Status post gastric sleeve. Slight wall thickening of the distal colon involving the rectum, sigmoid and to a lesser degree descending colon and distal transverse colon. There is slight pericolonic induration, particularly in the sigmoid and rectum. Appendix: There are no changes of appendicitis. A normal appendix is not seen. Intraperitoneal space: Unremarkable. No free air. No significant fluid collection. Vasculature: Unremarkable. No abdominal aortic aneurysm. Lymph nodes: Unremarkable. No enlarged lymph nodes. Bladder: Unremarkable as visualized. Reproductive: Status post hysterectomy. Bones/joints: Unremarkable. No acute fracture. Soft tissues: Unremarkable. IMPRESSION: 1. There has been prior cholecystectomy, gastric sleeve and hysterectomy. 2. Mild fatty infiltration of the liver. 3. Mild nonspecific left colitis from the distal transverse colon to the rectum but greatest in the sigmoid and rectum. Electronically signed by: Albino Jackson On 05/24/2019 03:00:29 AM
[2019-05-24 03:08] VITALS: BP 135/75
[2019-05-24] MEDS ORDERED: POTASSIUM CHLORIDE 10 MEQ SR TABLET PO ONE (03:30)
--- NOTE | 2019-05-24 08:31 | REP ---
Portable chest x-ray: Single AP view. History: Syncope. Comparison study: November 23, 2017. Findings: Today's views exposed at a lesser level of inspiration. EKG monitoring electrodes are seen. The lungs are symmetrically aerated and free of infiltrate. Pleural angles are sharp. Heart size is normal. Impression: No active disease. Electronically Signed by Alireza So MD 05/24/2019 08:22 A
--- NOTE | 2019-05-24 18:00 | ECGEPIP ---
[facility] - ED Test Date: 2019-05-23 Pat Name: ISAÍAS HARDING Department: Room: - Gender: Female Hr Intern: MAXIMUS : 1970 Requested By: JUNE Palomares Order Number: [id number] Reading MD: Sonam Odonnell Measurements Intervals [place] Rate: 54 P: 40 [place]: 150 QRS: 27 QRSD: 94 T: 9 QT: 484 QTc: 459 Interpretive Statements SINUS BRADYCARDIA NSTTW abnormalities SIMILAR 11/23/17 Electronically Signed on 05-24-2019 18:00:04 EST by Sonam Odonnell
== END 2019-05-24 03:44 | disposition home or self-care (01) ==
LOC: M ED 22:16
DX: R55 Syncope and collapse (principal); K58.9 Irritable bowel syndrome, unspecified; E87.6 Hypokalemia; R00.1 Bradycardia, unspecified; M06.9 Rheumatoid arthritis, unspecified; M79.7 Fibromyalgia; G43.909 Migraine, unspecified, not intractable, without status migrainosus; E03.9 Hypothyroidism, unspecified; Z98.84 Bariatric surgery status; Z82.49 Family history of ischemic heart disease and other diseases of the circulatory system; K76.0 Fatty (change of) liver, not elsewhere classified; K51.90 Ulcerative colitis, unspecified, without complications; Z79.899 Other long term (current) drug therapy; Z88.0 Allergy status to penicillin; Z88.8 Allergy status to other drugs, medicaments and biological substances; Z91.041 Radiographic dye allergy status
CPT/HCPCS: 70450; 71045; 72125; 74177; 80048; 81001; 82330; 82550; 82553; 84439; 84443; 84484; 85025; 85610; 87086; 93005; 93041; 94760; 96361; 96374; 96375; 99285; J1200; J2405; J2930; Q9967

== ENCOUNTER → 2019-06-10 | Outpatient (REF) | payer MEDICARE ==
[~2019-06-10] MED LIST changes: +HYDR-3363 PO; +METO1TAB87 PO; +OXYC1TAB23 PO; +PRAZ1CAP PO
[2019-06-11 12:41] LABS: BLOOD UREA NITROGEN 11 MG/DL (7-18); CARBON DIOXIDE LEVEL 27 MEQ/L (21-32); CHLORIDE LEVEL 109 MEQ/L (98-107); CREATININE FOR GFR 0.83 MG/DL (0.55-1.30); GLOMERULAR FILTRATION RATE > 60.0 (>58); GLUCOSE, FASTING 85 MG/DL (70-100); POTASSIUM SERUM 5.3 MEQ/L (3.5-5.1); SODIUM LEVEL 141 MEQ/L (136-145)
== END ==
LOC: M SFHCCLAY 15:25
PROVIDERS: ATTEND Family Medicine
DX: E87.6 Hypokalemia (principal)

== ENCOUNTER → 2019-07-14 | Outpatient (REF) | payer MEDICARE ==
[2019-07-15 14:01] LABS: BLOOD UREA NITROGEN 9 MG/DL (7-18); CALCIUM LEVEL 9.7 MG/DL (8.5-10.1); CARBON DIOXIDE LEVEL 27 MEQ/L (21-32); CHLORIDE LEVEL 104 MEQ/L (98-107); CREATININE FOR GFR 0.77 MG/DL (0.55-1.30); GLOMERULAR FILTRATION RATE > 60.0 (>58); GLUCOSE, FASTING 81 MG/DL (70-100); POTASSIUM SERUM 4.3 MEQ/L (3.5-5.1); SODIUM LEVEL 140 MEQ/L (136-145); THYROID STIMULATING HORMONE 0.304 uIU/ML (0.358-3.740)
[2019-07-15 16:14] LABS: FREE T4 0.89 NG/DL (0.76-1.46)
== END ==
LOC: M SFHCCLAY 13:54
PROVIDERS: ATTEND Family Medicine
DX: E87.6 Hypokalemia (principal); E03.9 Hypothyroidism, unspecified

== ENCOUNTER 2019-09-18 23:35 | Emergency (ER) | payer MEDICARE ==
[~2019-09-18] VITALS: Ht 162.6 cm; Wt 100.0 kg
[2019-09-18 23:35] VITALS: BP 119/74
[2019-09-18] MEDS ORDERED: DOXE25CA (23:45)
[2019-09-19] MEDS ORDERED: IBUPROFEN 800 MG TAB PO ONE (00:45)
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
== END 2019-09-19 01:48 | disposition home or self-care (01) ==
LOC: M ED 23:35
DX: S62.397A Other fracture of fifth metacarpal bone, left hand, initial encounter for closed fracture (principal); W22.8XXA Striking against or struck by other objects, initial encounter; Y92.89 Other specified places as the place of occurrence of the external cause; Y93.89 Activity, other specified; Y99.9 Unspecified external cause status; I10 Essential (primary) hypertension; E78.5 Hyperlipidemia, unspecified; M54.9 Dorsalgia, unspecified; F41.9 Anxiety disorder, unspecified; F32.9 Major depressive disorder, single episode, unspecified; G43.909 Migraine, unspecified, not intractable, without status migrainosus; J45.909 Unspecified asthma, uncomplicated; K21.9 Gastro-esophageal reflux disease without esophagitis; K52.9 Noninfective gastroenteritis and colitis, unspecified; E03.9 Hypothyroidism, unspecified; Z87.442 Personal history of urinary calculi; Z79.899 Other long term (current) drug therapy; Z91.041 Radiographic dye allergy status; Z88.0 Allergy status to penicillin; Z88.8 Allergy status to other drugs, medicaments and biological substances

== ENCOUNTER 2020-01-20 12:21 | Emergency (ER) | payer MEDICARE, OTHER ==
[~2020-01-20] VITALS: Ht 162.6 cm; Wt 99.0 kg
[~2020-01-20 12:21] MED LIST changes: +DOXE25CA
[2020-01-20] MEDS ORDERED: QUET200T2 (12:30)
[2020-01-20 13:32] VITALS: BP 111/87
--- NOTE | 2020-01-20 15:15 | REP ---
LEFT HAND, FOUR VIEWS: There is no evidence of an acute fracture, dislocation, or intrinsic bone disease. IMPRESSION: No fracture or dislocation. Electronically Signed by Hector Taylor MD 01/23/2020 11:42 P
== END 2020-01-20 13:34 | disposition home or self-care (01) ==
LOC: M ED 12:21
DX: S69.92XA Unspecified injury of left wrist, hand and finger(s), initial encounter (principal); W23.0XXA Caught, crushed, jammed, or pinched between moving objects, initial encounter; Y92.512 Supermarket, store or market as the place of occurrence of the external cause; Y93.9 Activity, unspecified; Y99.9 Unspecified external cause status; Z79.899 Other long term (current) drug therapy; Z91.041 Radiographic dye allergy status; Z88.0 Allergy status to penicillin; Z88.8 Allergy status to other drugs, medicaments and biological substances

== ENCOUNTER 2020-01-22 14:57 | Emergency (ER) | payer MEDICARE, OTHER ==
[~2020-01-22] VITALS: Ht 162.6 cm; Wt 90.7 kg
[~2020-01-22 14:57] MED LIST changes: +QUET200T2
[2020-01-22 16:14] LABS: VENOUS BASE EXCESS -0.7 (-2.0-2.0); VENOUS HCO3 24.3 MEQ/L (23.0-27.0); VENOUS O2 SATURATION 81.7 % (60.0-80.0); VENOUS PARTIAL PRESSURE CO2 41.2 mmHg (38.0-50.0); VENOUS PARTIAL PRESSURE O2 43.3 mmHg (30.0-50.0); VENOUS PH 7.388 UNITS (7.330-7.430); VENOUS STANDARD HCO3 23.5 MEQ/L; VENOUS TOTAL CO2 25.5 MEQ/L (24.0-28.0)
[2020-01-22 16:17] LABS: BASO # 0.1 10^3/uL (0.0-0.2); BASO % 0.8 % (0.0-1.0); EOS # 0.2 10^3/uL (0.0-0.5); EOS % 3.5 % (0.0-3.0); HEMOGLOBIN 12.7 g/dl (12.0-15.5); LYMPH # 2.2 10^3/uL (1.5-5.0); LYMPH % 35.2 % (24.0-44.0); MEAN CORPUSCULAR HEMOGLOBIN 28.7 pg (27.0-33.0); MEAN CORPUSCULAR HGB CONC 32.6 g/dl (32.0-36.5); MEAN CORPUSCULAR VOLUME 88.2 fl (80.0-96.0); MONO # 0.5 10^3/uL (0.0-0.8); MONO % 7.5 % (0.0-5.0); NEUTROPHILS # 3.3 10^3/uL (1.5-8.5); NEUTROPHILS % 52.8 % (36.0-66.0); PLATELET COUNT, AUTOMATED 302 10^3/uL (150-450); RED BLOOD COUNT 4.42 10^6/uL (4.00-5.40); WHITE BLOOD COUNT 6.3 10^3/uL (4.0-10.0)
[2020-01-22 16:49] LABS: ALBUMIN 3.3 GM/DL (3.2-5.2); ALT/SGPT 23 U/L (12-78); BILIRUBIN,DIRECT < 0.1 MG/DL (0.0-0.2); BILIRUBIN,TOTAL 0.3 MG/DL (0.2-1.0); BLOOD UREA NITROGEN 7 MG/DL (7-18); CALCIUM LEVEL 8.5 MG/DL (8.5-10.1); CARBON DIOXIDE LEVEL 28 MEQ/L (21-32); CHLORIDE LEVEL 110 MEQ/L (98-107); CK-MB VALUE MASS < 1.0 NG/ML (<3.6); CPK CREATINE PHOSPHOKINASE 134 U/L (26-192); CREATININE FOR GFR 0.78 MG/DL (0.55-1.30); GLOMERULAR FILTRATION RATE > 60.0 (>58); GLUCOSE, FASTING 83 MG/DL (70-100); MB/CK RELATIVE INDEX 0.75 (< OR =4); NT-PRO BNP 238 PG/ML (<125); POTASSIUM SERUM 3.8 MEQ/L (3.5-5.1); SODIUM LEVEL 141 MEQ/L (136-145); THYROID STIMULATING HORMONE 0.934 uIU/ML (0.358-3.740); THYROXINE (T4) 9.9 UG/DL (4.5-12.0); TOTAL PROTEIN 6.4 GM/DL (6.4-8.2); TROPONIN I < 0.02 NG/ML (< 0.10)
[2020-01-22] MEDS ORDERED: ALBUTEROL 90 MCG/ACT 8GM HFA INHALER INH ONE (17:30)
[2020-01-22] MEDS ORDERED: KETOROLAC 30 MG/ML 1ML VIAL IV ONE (17:45)
[2020-01-22] MEDS ORDERED: PROAAER10 INH (18:26)
[2020-01-22 19:01] VITALS: BP 148/68
--- NOTE | 2020-01-23 08:38 | ECGEPIP ---
[facility] - ED Test Date: 2020-01-22 Pat Name: ISAÍAS HARDING Department: Room: - Gender: Female Oil Operator: arun : 1970 Requested By: JUAN Lynn Order Number: [id number] Reading MD: Chintan Abreu Measurements Intervals [place] Rate: 50 P: 14 DE: 144 QRS: 10 QRSD: 85 T: 2 QT: 457 QTc: 419 Interpretive Statements SINUS BRADYCARDIA NSTTW ABNORMALITIES SIMILAR TO 05/23/19 Electronically Signed on 01-23-2020 8:38:43 EDT by Chintan Abreu
--- NOTE | 2020-01-23 09:25 | REP ---
CHEST PORTABLE: REASON: Cough. FINDINGS: The technique utilized in obtaining the radiograph has magnified the cardiac silhouette and accentuated the interstitial markings. The superior mediastinal structures are midline. The cardiac silhouette is unremarkable in size, shape, and position. The diaphragmatic surfaces of the lungs are regular, and the costophrenic angles are clear. The pulmonary patterson are clear. The imaged osseous structures are intact. IMPRESSION: There is no acute cardiopulmonary disease. Electronically Signed by Mikey Sol DO 01/23/2020 09:39 A
== END 2020-01-22 19:25 | disposition home or self-care (01) ==
LOC: M ED 14:57
DX: J98.01 Acute bronchospasm (principal); J45.909 Unspecified asthma, uncomplicated; R00.1 Bradycardia, unspecified; I11.9 Hypertensive heart disease without heart failure; E78.5 Hyperlipidemia, unspecified; Z79.899 Other long term (current) drug therapy; Z91.041 Radiographic dye allergy status; Z88.0 Allergy status to penicillin; Z88.8 Allergy status to other drugs, medicaments and biological substances
CPT/HCPCS: 71045; 80048; 80076; 82550; 82553; 82803; 83605; 83880; 84436; 84443; 84484; 85025; 85379; 87040; 93005; 93041; 94640; 94664; 96374; 99285; J1885

== ENCOUNTER 2020-05-09 18:23 | Emergency (ER) | payer OTHER, MEDICARE ==
[~2020-05-09] VITALS: Ht 162.6 cm; Wt 97.7 kg
[~2020-05-09 18:23] MED LIST changes: +PROAAER10 INH
[2020-05-09] MEDS ORDERED: LINZ145C PO (18:42)
[2020-05-09] MEDS ORDERED: MIRT1TAB16 PO (18:42)
[2020-05-09] MEDS ORDERED: diazePAM 10MG/2ML SYRINGE (J3360 PER 5MG) IM ONE (19:15)
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
[2020-05-09] MEDS ORDERED: CYCL-707 PO (21:16)
[2020-05-09 21:26] VITALS: BP 119/72
== END 2020-05-09 21:28 | disposition home or self-care (01) ==
LOC: M ED 18:23 → EDBD 18:23 → M ED 21:28
DX: S29.012A Strain of muscle and tendon of back wall of thorax, initial encounter (principal); M25.512 Pain in left shoulder; V49.40XA Driver injured in collision with unspecified motor vehicles in traffic accident, initial encounter; Y92.410 Unspecified street and highway as the place of occurrence of the external cause; Z88.0 Allergy status to penicillin; Z91.041 Radiographic dye allergy status; Z79.899 Other long term (current) drug therapy
CPT/HCPCS: 70450; 72125; 72128; 72131; 73030; 96372; 99284; J3360

== ENCOUNTER 2020-07-24 08:49 | Emergency (ER) | payer MEDICARE, OTHER ==
[~2020-07-24] VITALS: Ht 162.6 cm; Wt 106.5 kg
[~2020-07-24 08:49] MED LIST changes: -BUPR150T3 PO; +BUPR150T4 PO; +CYCL-707 PO; +LINZ145C PO; +MIRT1TAB16 PO
[2020-07-24] MEDS ORDERED: HYDR-3719 (08:58)
[2020-07-24] MEDS ORDERED: MIRTAZAPINE (08:58)
[2020-07-24] MEDS ORDERED: PARO25TA4 (08:58)
[2020-07-24] MEDS ORDERED: POTA1TAB23 (08:58)
[2020-07-24] MEDS ORDERED: PRAZ2CAP (08:58)
--- OUTSIDE RECORDS SUMMARY | 2020-07-24 08:58 | CCD ---
Author Author [facility] Organization [facility] Address Unknown Phone Unavailable Care Team Providers Care Medical Staff Specialist Name Role Phone Sandeep Win Unavailable PROBLEMS Type Condition ICD9-CM Code [id number] Code Onset Dates Condition S tatus SNOMED Code Notes Problem Rheumatoid arthritis involving vertebra with positive rheumatoid factor M45.9 Active 482191130 Problem Fibromyalgia M79.7 Active 667796044 Problem Thoracic radiculopathy M54.14 Active 49904965 Problem Use of opiates for therapeutic purposes Z79.891 Active 112504332 Problem Contracture of hand M24.549 Active 822848159 Problem Depression, unspecified depression type F32.9 Active 71181468 Problem Other chronic pain G89.29 Active 92375732 Problem Anxiety F41.9 Active 66063598 Problem Acquired hypothyroidism E03.9 Active 55463145 2 Problem History of rheumatoid arthritis Z87.39 Active 107873280 Problem Irritable bowel syndrome, unspecified type K58.9 Active 80581531 Problem Low back pain M54.5 Active 523973256 Problem Difficulty sleeping G47.9 Active 862348376 Problem Hemiplegic migraine without status migrainosus, not intractable G43.409 Active 45702448 Problem Insomnia, unspecified type G47.00 Active 57909 2000 Problem Chronic GERD K21.9 Active 718994443 Problem Severe depression F32.2 Active 660404855 Problem PTSD (post-traumatic stress disorder) F43.10 Ac tive 81070405 Problem Mild intermittent asthma without complication J45. 20 Active 458120540 ALLERGIES Allergen (clinical drug ingredient) Drug/Non Drug Allergy do cumented on EMR Reaction Allergy Type Onset Date Status Penicillin (For Allergies Use Only) Hives Drug Allerg y Active NSAID's- can not take due to gastric bypass Unknown Non Drug Allergy Active cyclobenzaprine Cyclobenzaprine HCl([facility] Code:[address]-50) Unkn own Drug Allergy Active ibuprofen Ibuprofen([facility] Code:[address]-11) Unknown Drug Allergy Active gabapentin Gabapentin([facility] Code:[address]-70) Unknown Drug Allergy Active amitriptyline Amitriptyline HCl([facility] Code:[address]-23) Unknown Dr ug Allergy Active pregabalin Lyrica([facility] Code:[address]-87) Unknown Drug Allergy Active duloxetine Cymbalta([facility] Code:[address]-69) Unknown Drug Allergy Active IV Dye Anaphylaxis Non Drug Allergy Active ENCOUNTERS from 1971 to 2020-05-11 Encounter Location Date Provider Diagnosis [facility] [address] [place] [id number] May Sandeep Win IMMUNIZATIONS Vaccine Route Administration Date Status Influenza (18 yrs & older) Flublok IM Intramuscular May 09, 2020 Administered Influenza (18 yrs & older) Flublok IM Intramuscular Apr 07, 2019 Administered SOCIAL HISTORY Tobacco Use: Social History Observation Description Date Details (start date - stop date) Never Smoker Sex Assigned At : Social History Observation Description Sex Assigned At Unknown Education: Question Answer Notes Level of Education: Not Finished College Audit Question Answer Notes Total Score: 1 Interpretation: Alcohol Education Language: Question Answer Notes Languages spoken: Frisian Hoahaoism: Question Answer Notes Hoahaoism 33 None Sexual Hx: Question Answer Notes Had sex in the last 12 months (vaginal, oral, or anal)? No LMP: 10/05/2013 Have you ever had an STD? No Drug and Alcohol Question Answer Notes Total Score: 0 Interpretation: No problems reported Alcohol Screening: Question Answer Notes Did you have a drink containing alcohol in the past year? Ye s Points 2 Interpretation Negative How often did you have six or more drinks on one occas ion in the past year? Less than monthly (1 point) How many drinks did you have on a typica l day when you were drinking in the past year? 1 or 2 (0 points) How often did you have a drink containing alcohol in t he past year? Monthly or less (1 point) BMI Care Goal Follow-Up Question Answer Notes Above Normal BMI Follow-Up Dietary management educatio n, guidance, and counseling Tobacco Use: Question Answer Notes Are you a: never smoker REASON FOR REFERRAL No Information VITAL SIGNS No information MEDICATIONS Medication SIG (Take, Route, Frequency, Duration) Start Date En d Date Status Metoclopramide HCl 10 MG 1 tablet Orally every 6 hours as needed for headache Not-Taking Multivitamin Adults - Orally daily Activ e Alprazolam 0.5 MG 1 tablet Orally three times a day as needed 2018 Active Prazosin HCl 2 MG 2 capsule at bedtime Orally Once a day Aug, Active Biotin 1000 MCG 1 tablet Orally Once a day Active Hydrocodone-Acetaminophen 10-325 MG 1 tablet as needed Orally three times daily for 30 days Apr, Active Potassium Chloride ER 10 MEQ 1 tablet with food Oral Once a day for 30 days Active Vitamin B12 1000 MCG 1 tablet Orally Once a day Active Linzess 145 MCG 1 capsule at least 30 minute s before the first meal of the day on an empty stomach Orally Once a day for 30 day(s) Active Nystatin 299524 UNIT/GM 1 application Externally Twice a day for 14 day(s) May, Active PARoxetine HCl ER 25 mg 2 tablet in the morning Orally Once a da y for 30 Days Active Calcium Citrate + - as directed Orally daily Active Vitamin D-3 1000 UNIT 1 capsule Orally Once a day Active Levothyroxine Sodium 175 MCG 1 tablet in the morning o n an empty stomach Orally Once a day for 30 day(s) Jun, Active Tizanidine HCl 4 MG 1 tablet as needed Orally Three times a day Sep, Active Omeprazole 40 MG 1 capsule 30 minutes before morning meal Orally twice a day Oct, Active PredniSONE 10 MG 4 tabs qday x 3, 3 tab qday x 3, 2 tabs qday x 3, 1 tab qday x 3 days Orally as directed for 12 days May, Ac tive Ventolin HFA 108 (90 Base) MCG/ACT 2 puffs as needed I nhalation every 4 hours as needed for 30 days Apr, Active PROCEDURES No Information RESULTS No Results REASON FOR VISIT [facility] er f/u MEDICAL (GENERAL) HISTORY Type Description Date Medical History Hypothyroidism Medical History Mitral Valve Prolapse Medical History Chronic Back Pain Medical History Fibromyalgia Medical History Rhuematoid Arthritis Medical History Depression Medical History Anxiety Medical History TMJ Medical History Migraines Medical History IBS Surgical History Gastric bypass Surgical History Total hysterectomy Surgical History gallbladder Surgical History appendectomy Surgical History right wrist surgery Surgical History tonsillectomy Surgical History hernia repair Surgical History release of tendon in hand 12/02/2018 Surgical History Right joint capsulotomy 05/03/2019 Hospitalization History leg pain R/O blood clots - negative Hospitalization History back pain Hospitalization History pneumonia Hospitalization History Cluster migraines/low potass ium and magnesium- ([facility]) 04/22/2020 Goals Section No Information Health Concerns No Information MEDICAL EQUIPMENT No Information MENTAL STATUS No Information FUNCTIONAL STATUS No Information ASSESSMENTS No Information PLAN OF TREATMENT Medication Medication Name Sig Start Date Stop Date PredniSONE 10 MG 4 tabs qday x 3, 3 tab qday x 3, 2 tabs qday x 3, 1 tab qday x 3 days Orally as directed for 12 days May, Next Appt Details Provider Name:Mary Carlos Alberto, 2020-08 03:30:00 PM, [address] [place], [address], Insurance Providers Payer Name Payer Address Payer Phone Insured Name Patient Relati onship to Insured Coverage Start Date Coverage End Date AETNA MEDICARE AETNA [employer] INSURANCE [employer] [address] [facility] [phone] [employer] self
--- OUTSIDE RECORDS SUMMARY | 2020-07-24 08:58 | CCD ---
Author Author [facility] Organization [facility] Address Unknown Phone Unavailable Care Team Providers Care Business Analytics Analyst Name Role Phone Vanita Chi Unavailable PROBLEMS Type Condition ICD9-CM Code [id number] Code Onset Dates Condition S tatus SNOMED Code Notes Problem Rheumatoid arthritis involving vertebra with positive rheumatoid factor M45.9 Active 227876654 Problem Thoracic radiculopathy M54.14 Active 73014403 Problem Use of opiates for therapeutic purposes Z79.891 Active 528225665 Problem Anxiety F41.9 Active 04557875 Problem Fibromyalgia M79.7 Active 663914307 Problem Depression, unspecified depression type F32.9 Active 85266234 Problem Other chronic pain G89.29 Active 87287455 Problem Difficulty sleeping G47.9 Active 512276065 Problem Acquired hypothyroidism E03.9 Active 55713004 2 Problem History of rheumatoid arthritis Z87.39 Active 305773469 Problem Mild intermittent asthma without complication J45. 20 Active 148135232 Problem Contracture of hand M24.549 Active 914949505 Problem Low back pain M54.5 Active 089490612 Problem Insomnia, unspecified type G47.00 Active 41688 2000 Problem Irritable bowel syndrome, unspecified type K58.9 Active 51722422 Problem Chronic GERD K21.9 Active 908207955 Problem Severe depression F32.2 Active 062697082 Problem PTSD (post-traumatic stress disorder) F43.10 Ac tive 64371249 ALLERGIES Allergen (clinical drug ingredient) Drug/Non Drug Allergy do cumented on EMR Reaction Allergy Type Onset Date Status Penicillin (For Allergies Use Only) Hives Drug Allerg y Active NSAID's- can not take due to gastric bypass Unknown Non Drug Allergy Active cyclobenzaprine Cyclobenzaprine HCl([facility] Code:[address]-54) Unkn own Drug Allergy Active ibuprofen Ibuprofen([facility] Code:[address]-53) Unknown Drug Allergy Active gabapentin Gabapentin([facility] Code:[address]-98) Unknown Drug Allergy Active amitriptyline Amitriptyline HCl([facility] Code:[address]-93) Unknown Dr ug Allergy Active pregabalin Lyrica([facility] Code:[address]-89) Unknown Drug Allergy Active duloxetine Cymbalta([facility] Code:[address]-48) Unknown Drug Allergy Active IV Dye Anaphylaxis Non Drug Allergy Active ENCOUNTERS from 1971 to 2020-04-28 Encounter Location Date Provider Diagnosis [facility] [place] [address] Apr Vanita Chi IMMUNIZATIONS Vaccine Route Administration Date Status Influenza [...] Education Language: Question Answer Notes Languages spoken: Romansh Scientology: Question Answer Notes Scientology 33 None Sexual Hx: Question Answer Notes [...] Duration) Start Date En d Date Status Biotin 1000 MCG 1 tablet Orally Once a day Active Potassium Chloride ER 10 MEQ 1 tablet with food Oral Once a day for 30 days Active Linzess 145 MCG 1 capsule at least 30 minute s before the first meal of the day on an empty stomach Orally Once a day for 30 day(s) Active Alprazolam 0.5 MG 1 tablet Orally three times a day as needed 2018 Active Metoclopramide HCl 10 MG 1 tablet Orally every 6 hours as needed for headache Active Levothyroxine Sodium 175 MCG 1 tablet in the morning o n an empty stomach Orally Once a day for 30 day(s) Jun, Active Ventolin HFA 108 (90 Base) MCG/ACT 2 puffs as needed I nhalation every 4 hours as needed for 30 days Apr, Active Calcium Citrate + D3 250-200 MG-UNIT 1 tablet Orally Twice a day for 30 day(s) Active Multivitamin Adults - Orally daily Activ e PARoxetine HCl ER 25 mg 2 tablet in the morning Orally Once a da y for 30 Days Active Prazosin HCl 2 MG 2 capsule at bedtime Orally Once a day Aug, Active Vitamin D-3 1000 UNIT 1 capsule Orally Once a day Active Vitamin B12 1000 MCG 1 tablet Orally Once a day Active Omeprazole 40 MG 1 capsule 30 minutes before morning meal Orally twice a day Oct, Active Hydrocodone-Acetaminophen 10-325 MG 1 tablet as needed Orally three times daily for 30 days Apr, Active Calcium Citrate + - as directed Orally daily Active Tizanidine HCl 4 MG 1 tablet as needed Orally Three times a day Sep, Active PROCEDURES No Information RESULTS No Results REASON FOR VISIT AWILDA MOISE D/C 04/23 MEDICAL (GENERAL) HISTORY Type Description Date Medical [...] Hospitalization History back pain Hospitalization History pneumonia Goals Section No Information Health Concerns No Information MEDICAL EQUIPMENT No Information MENTAL STATUS No Information FUNCTIONAL STATUS No Information ASSESSMENTS No Information PLAN OF TREATMENT Next Appt Details Provider Name:Vanita Chi, 2019-07 0 10:30:00 AM, [address], [place], [address], Insurance Providers Payer Name Payer Address Payer Phone Insured Name Patient Relati onship to Insured Coverage Start Date Coverage End Date AETNA MEDICARE AETNA [employer] INSURANCE [employer] [address] [facility] [id number] [employer] self
--- OUTSIDE RECORDS SUMMARY | 2020-07-24 08:58 | CCD ---
Author Author [facility] Organization [facility] Address Unknown Phone Unavailable Care Team Providers Care Collections Agent Name Role Phone Mary Carcamo Unavailable PROBLEMS Type Condition ICD9-CM Code [id number] Code Onset Dates Condition S tatus SNOMED Code Notes Problem Rheumatoid arthritis involving vertebra with positive rheumatoid factor M45.9 Active 950737180 Problem Fibromyalgia M79.7 Active 510395764 Problem Thoracic radiculopathy M54.14 Active 17196868 Problem Use of opiates for therapeutic purposes Z79.891 Active 882009484 Problem Contracture of hand M24.549 Active 769879971 Problem Depression, unspecified depression type F32.9 Active 28201629 Problem Other chronic pain G89.29 Active 12026418 Problem Anxiety F41.9 Active 82809700 Problem Acquired hypothyroidism E03.9 Active 07903799 2 Problem History of rheumatoid arthritis Z87.39 Active 002838321 Problem Irritable bowel syndrome, unspecified type K58.9 Active 09100945 Problem Low back pain M54.5 Active 270091022 Problem Difficulty sleeping G47.9 Active 137354011 Problem Hemiplegic migraine without status migrainosus, 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 20 Active 780722559 ALLERGIES Allergen (clinical drug ingredient) Drug/Non Drug Allergy do cumented on EMR Reaction Allergy Type Onset Date Status Penicillin (For Allergies Use Only) Hives Drug Allerg y Active NSAID's- can not take due to gastric bypass Unknown Non Drug Allergy Active cyclobenzaprine Cyclobenzaprine HCl([facility] Code:[address]-03) Unkn own Drug Allergy Active ibuprofen Ibuprofen([facility] Code:[address]-55) Unknown Drug Allergy Active gabapentin Gabapentin([facility] Code:[address]-92) Unknown Drug Allergy Active amitriptyline Amitriptyline HCl([facility] Code:[address]-44) Unknown Dr ug Allergy Active pregabalin Lyrica([facility] Code:[address]-50) Unknown Drug Allergy Active duloxetine Cymbalta([facility] Code:[address]-82) Unknown Drug Allergy Active IV Dye Anaphylaxis Non Drug Allergy Active ENCOUNTERS from 1971 to 2020-06-15 Encounter Location Date Provider Diagnosis [facility] [address] [place] [address] Jun [place] Chronic GERD K21.9 ; Acquired hypothyroi dism E03.9 ; PTSD (post- traumatic stress disorder) F43.10 and Low back pain M54.5 IMMUNIZATIONS Vaccine Route Administration Date Status Influenza [...] Education Language: Question Answer Notes Languages spoken: Yakut Muslim: Question Answer Notes Muslim 33 None Sexual Hx: Question Answer Notes [...] MEDICATIONS Medication SIG (Take, Route, Frequency, Duration) Notes Start Da te End Date Status Biotin 1000 MCG 1 tablet Orally Once a day Active Hydrocodone-Acetaminophen 10-325 MG 1 tablet as needed Orally every 6 hrs for 30 Days Jun, Active PARoxetine HCl ER 25 mg 2 tablet in the morning Orally Once a da y for 30 Days Active Linzess 145 MCG 1 capsule at least 30 minute s before the first meal of the day on an empty stomach Orally Once a day for 30 day(s) Active Cyclobenzaprine HCl 10 MG 1 tablet Orally tid for 30 days Active Calcium Citrate + - as directed Orally daily Active Omeprazole 40 MG 1 capsule 30 minutes before morning meal Orally twice a day for 30 days Oct, Active Ventolin HFA 108 (90 Base) MCG/ACT 2 puffs as needed I nhalation every 4 hours as needed for 30 days Apr, Active Hydrocodone-Acetaminophen 10-325 MG 1 tablet as needed Orally three times daily for 30 days Apr, Active Potassium Chloride ER 10 MEQ 1 tablet with food Oral Once a day for 30 days Active Multivitamin Adults - Orally daily Active Metoclopramide HCl 10 MG 1 tablet Orally every 6 hours as needed for headache Not-Taking Nystatin 992615 UNIT/GM 1 application Externally Twice a day for 14 day(s) May, Active Prazosin HCl 2 MG 2 capsule at bedtime Orally Once a day for 30 days Aug, Active Vitamin B12 1000 MCG 1 tablet Orally Once a day Active Tizanidine HCl 4 MG 1 tablet as needed Orally Three times a day Sep, Not-Taking Levothyroxine Sodium 175 MCG 1 tablet in the morning o n an empty stomach Orally Once a day for 30 day(s) Jun, Active Alprazolam 0.5 MG 1 tablet Orally three times a day as needed Aug, Active PredniSONE 10 MG 4 tabs qday x 3, 3 tab qday x 3, 2 tabs qday x 3, 1 tab qday x 3 days Orally as directed for 12 days May, Active Vitamin D-3 1000 UNIT 1 capsule Orally Once a day Active PROCEDURES No Information RESULTS No Results REASON FOR VISIT Refill - Multiple MEDICAL (GENERAL) HISTORY Type Description Date Medical [...] History Cluster migraines/low potass ium and magnesium- ([facility]) 04/22/2020 Goals Section No Information Health Concerns No Information MEDICAL EQUIPMENT No Information MENTAL STATUS No Information FUNCTIONAL STATUS No Information ASSESSMENTS Encounter Date Diagnosis Assessment Notes Treatment Notes Treatm ent Clinical Notes Jun, Chronic GERD (ICD-10 - K21.9) Jun, Acquired hypothyroidism (ICD-10 - E03.9) Jun, PTSD (post-traumatic stress disorder) (ICD-10 - F43.10) Jun, Low back pain (ICD-10 - M54.5) PLAN OF TREATMENT Medication Medication Name Sig Start Date Stop Date Hydrocodone-Acetaminophen 10-325 MG 1 tablet as needed Orally every 6 hrs for 30 Days Jun, Prazosin HCl 2 MG 2 capsule at bedtime Orally Once a day f or 30 days Aug, PARoxetine HCl ER 25 mg 2 tablet in the morning Orally Once a da y for 30 Days Cyclobenzaprine HCl 10 MG 1 tablet Orally tid for 30 days Levothyroxine Sodium 175 MCG 1 tablet in the morning o n an empty stomach Orally Once a day for 30 day(s) Jun, Omeprazole 40 MG 1 capsule 30 minutes before morning meal Orally twice a day for 30 days Oct, Next Appt Details Provider Name:Mary Carcamo 2020-06 02:30:00 PM, [place], [address], Provider Name:Mary Carcamo 2020-08 03:30:00 PM, [address], [place], [address], Insurance Providers Payer Name Payer Address Payer Phone Insured Name Patient Relati onship to Insured Coverage Start Date Coverage End Date AETNA MEDICARE AETNA [employer] INSURANCE [employer] [address] [facility] [phone] [employer] [address] [id number] [facility] [id number] [phone] ISAÍ[employer] self
--- OUTSIDE RECORDS SUMMARY | 2020-07-24 08:58 | CCD ---
Author Author [facility] Organization [facility] Address Unknown Phone Unavailable Care Team Providers Care Cad Specialist Name Role Phone Mary Carcamo Unavailable PROBLEMS Type Condition ICD9-CM Code [id number] Code Onset Dates Condition S tatus SNOMED Code Notes Problem Rheumatoid arthritis involving vertebra with positive rheumatoid factor M45.9 Active 389175038 Problem Fibromyalgia M79.7 Active 389324860 Problem Thoracic radiculopathy M54.14 Active 88209494 Problem Use of opiates for therapeutic purposes Z79.891 Active 845775330 Problem Contracture of hand M24.549 Active 082779322 Problem Depression, unspecified depression type F32.9 Active 84136564 Problem Other chronic pain G89.29 Active 88539795 Problem Anxiety F41.9 Active 90664205 Problem Acquired hypothyroidism E03.9 Active 61160390 2 Problem History of rheumatoid arthritis Z87.39 Active 216373343 Problem Irritable bowel syndrome, unspecified type K58.9 Active 97151532 Problem Low back pain M54.5 Active 660032085 Problem Difficulty sleeping G47.9 Active 345704340 Problem Hemiplegic migraine without status migrainosus, not intractable G43.409 Active 82083343 Problem Insomnia, unspecified type G47.00 Active 66748 2000 Problem Chronic GERD K21.9 Active 857786502 Problem Severe depression F32.2 Active 910734367 Problem PTSD (post-traumatic stress disorder) F43.10 Ac tive 78884971 Problem Mild intermittent asthma without complication J45. 20 Active 405876983 ALLERGIES Allergen (clinical drug ingredient) Drug/Non Drug Allergy do cumented on EMR Reaction Allergy Type Onset Date Status Penicillin (For Allergies Use Only) Hives Drug Allerg y Active NSAID's- can not take due to gastric bypass Unknown Non Drug Allergy Active cyclobenzaprine Cyclobenzaprine HCl([facility] Code:[address]-12) Unkn own Drug Allergy Active ibuprofen Ibuprofen(NDC Code:[address]-40) Unknown Drug Allergy Active gabapentin Gabapentin(NDC Code:[address]-64) Unknown Drug Allergy Active amitriptyline Amitriptyline HCl(ND Code:[address]-20) Unknown Dr ug Allergy Active pregabalin Lyrica(ND Code:[address]-37) Unknown Drug Allergy Active duloxetine Cymbalta([facility] Code:[address]-52) Unknown Drug Allergy Active IV Dye Anaphylaxis Non Drug Allergy Active ENCOUNTERS from 1970 to 2020-05-18 Encounter Location Date Provider Diagnosis [facility] [address] [place] [address] May Pomona Schoeneman Hemiplegic migraine without status migra inosus, not intractable G43.409 ; Candidal intertrigo B37.2 and Encounter for immunization Z23 IMMUNIZATIONS Vaccine Route Administration Date Status Influenza [...] Education Language: Question Answer Notes Languages spoken: Czech Synagogue: Question Answer Notes Synagogue 33 None Sexual Hx: Question Answer Notes [...] REASON FOR REFERRAL No Information VITAL SIGNS Weight 215 lbs May, Height 63 in May, BMI 38.08 kg/m2 May, Heart Rate 72 /min May, Respiratory Rate 18 /min May, Temperature 97.8 degrees Fahrenheit May, Oximetry 98%RA May, Blood pressure systolic 131 mm Hg May, Blood pressure diastolic 85 mm Hg May, MEDICATIONS Medication SIG (Take, Route, Frequency, Duration) Start Date En d Date Status Multivitamin Adults - Orally daily Activ e Metoclopramide HCl 10 MG 1 tablet Orally every 6 hours as needed for headache Not-Taking Vitamin D-3 1000 UNIT 1 capsule Orally Once a day Active Prazosin HCl 2 MG 2 capsule at bedtime Orally Once a day Aug, Active Tizanidine HCl 4 MG 1 tablet as needed Orally Three times a day Sep, Not-Taking Ventolin HFA 108 (90 Base) MCG/ACT 2 puffs as needed I nhalation every 4 hours as needed for 30 days Apr, Active Biotin 1000 MCG 1 tablet Orally Once a day Active Potassium Chloride ER 10 MEQ 1 tablet with food Oral Once a day for 30 days Active Levothyroxine Sodium 175 MCG 1 tablet in the morning o n an empty stomach Orally Once a day for 30 day(s) Jun, Active Alprazolam 0.5 MG 1 tablet Orally three times a day as needed 2018 Active PredniSONE 10 MG 4 tabs qday x 3, 3 tab qday x 3, 2 tabs qday x 3, 1 tab qday x 3 days Orally as directed for 12 days May, Ac tive Nystatin 160477 UNIT/GM 1 application Externally Twice a day for 14 day(s) May, Active Hydrocodone-Acetaminophen 10-325 MG 1 tablet as needed Orally three times daily for 30 days Apr, Active PARoxetine HCl ER 25 mg 2 tablet in the morning Orally Once a da y for 30 Days Active Calcium Citrate + - as directed Orally daily Active Vitamin B12 1000 MCG 1 tablet Orally Once a day Active Cyclobenzaprine HCl 10 MG 1 tablet Orally tid for 30 days Active Omeprazole 40 MG 1 capsule 30 minutes before morning meal Orally twice a day Oct, Active Hydrocodone-Acetaminophen 10-325 MG 1 tablet as needed Orally every 6 hrs for 30 Days May, Active Linzess 145 MCG 1 capsule at least 30 minute s before the first meal of the day on an empty stomach Orally Once a day for 30 day(s) Active PROCEDURES Procedure Date Ordered Result Body Site Immunization: Flublok Quadrivalent (18 years & older) 0.5mL IM (Influenza) 2020-05-09 N/A RESULTS No Results REASON FOR VISIT [facility] F/U MEDICAL (GENERAL) HISTORY Type Description Date Medical [...] History Cluster migraines/low potass ium and magnesium- ([facility]) 04/22/2020 Goals Section No Information Health Concerns No Information MEDICAL EQUIPMENT No Information MENTAL STATUS No Information FUNCTIONAL STATUS No Information ASSESSMENTS Encounter Date Diagnosis Notes May, Candidal intertrigo (ICD-10 - B37.2) May, Encounter for immunization (ICD-10 - Z23 ) May, Hemiplegic migraine without status migrainosus, not intractable (ICD-10 - G43.409) PLAN OF TREATMENT Medication Medication Name Sig Start Date Stop Date Cyclobenzaprine HCl 10 MG 1 tablet Orally tid for 30 days Hydrocodone-Acetaminophen 10-325 MG 1 tablet as needed Orally every 6 hrs for 30 Days May, Treatment Notes Assessment Notes Clinical Notes Hemiplegic migraine without status migrainosus, not intracta ble Due to severity of patient's symptoms with migraine she will be referred to neurology for further management. Candidal intertrigo Patient will be pres cribed topical nystatin. Patient should have reevaluation if symptoms worsen. Encounter for immunization Patient Educated with: FLU Vaccine, Inactivated [id number] (FLU Vaccine, Inactivated [id number].pdf) Next Appt Details 3 Months: follow up Reason: Provider Name:Mary Carcamo, 2020-08 03:30:00 PM, [address], [place], [address], Insurance Providers Payer Name Payer Address Payer Phone Insured Name Patient Relati onship to Insured Coverage Start Date Coverage End Date AETNA MEDICARE AETNA [facility] [employer] [address] [facility] [address] [employer] [place] [place] [address] [address] [facility] [phone] ISA[employer] HARDING self
--- OUTSIDE RECORDS SUMMARY | 2020-07-24 08:58 | CCD ---
Author Author [facility] Organization [facility] Address Unknown Phone Unavailable Care Team Providers Care Debt And Budget Counselor Name Role Phone Carlos Alberto Mayr Unavailable PROBLEMS Type Condition ICD9-CM Code WEY70-DS Code Onset Dates Condition S tatus SNOMED Code Notes Problem Rheumatoid arthritis involving vertebra with positive rheumatoid factor M45.9 Active 544371696 Problem Fibromyalgia M79.7 Active 773122030 Problem Thoracic radiculopathy M54.14 Active 40099726 Problem Use of opiates for therapeutic purposes Z79.891 Active 072372836 Problem Contracture of hand M24.549 Active 754050569 Problem Depression, unspecified depression type F32.9 Active 94343064 Problem Other chronic pain G89.29 Active 65958943 Problem Anxiety F41.9 Active 85748478 Problem Acquired hypothyroidism E03.9 Active 67185297 2 Problem History of rheumatoid arthritis Z87.39 Active 066449525 Problem Irritable bowel syndrome, unspecified type K58.9 Active 96598310 Problem Low back pain M54.5 Active 750704505 Problem Difficulty sleeping G47.9 Active 283648197 Problem 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 20 Active 996678266 ALLERGIES Allergen (clinical drug ingredient) Drug/Non Drug Allergy do cumented on EMR Reaction Allergy Type Onset Date Status Penicillin (For Allergies Use Only) Hives Drug Allerg y Active NSAID's- can not take due to gastric bypass Unknown Non Drug Allergy Active cyclobenzaprine Cyclobenzaprine HCl([facility] Code:[address]-14) Unkn own Drug Allergy Active ibuprofen Ibuprofen(NDC Code:[address]-76) Unknown Drug Allergy Active gabapentin Gabapentin(ND Code:[address]-47) Unknown Drug Allergy Active amitriptyline Amitriptyline HCl([facility] Code:[address]-84) Unknown Dr ug Allergy Active pregabalin Lyrica(ND Code:[address]-84) Unknown Drug Allergy Active duloxetine Cymbalta([facility] Code:[address]-14) Unknown Drug Allergy Active IV Dye Anaphylaxis Non Drug Allergy Active ENCOUNTERS from 1971 to 2020-07-13 Encounter Location Date Provider Diagnosis [facility] [address] [place] [address] Jul Mary Carcamo IMMUNIZATIONS Vaccine Route Administration Date Status Influenza [...] Education Language: Question Answer Notes Languages spoken: Wallisian Hoahaoism: Question Answer Notes Hoahaoism 33 None [...] hours as needed for headache Not-Taking Nystatin 315378 UNIT/GM 1 application Externally Twice a day [...] Information RESULTS No Results REASON FOR VISIT order MEDICAL (GENERAL) HISTORY Type Description Date Medical [...] History Cluster migraines/low potass ium and magnesium- ([facility]) 04/22/2020 Goals Section No Information Health [...] days Oct, Next Appt Details Provider Name:Mary Carcamo, 2020-07 07:30:00 AM, [place], [address], Provider Name:Mary Carcamo 2020-08 03:30:00 PM, [address] [place], [address], Insurance Providers Payer Name Payer Address Payer Phone Insured Name Patient Relati onship to Insured Coverage Start Date Coverage End Date [employer] [place] [address] [address] [facility] [phone] ISAÍAS HARDING AETNA MEDICARE AET[employer] INSURANCE Issue [address] [facility] [address] IS[employer]ARD[employer] self
--- OUTSIDE RECORDS SUMMARY | 2020-07-24 08:58 | CCD ---
Author Author [facility] Organization [facility] Address Unknown Phone Unavailable Care Team Providers Care Commercial Housekeeper Name Role Phone Jhonathanivett Mary Unavailable PROBLEMS Type Condition ICD9-CM Code YBF92-TW Code Onset Dates Condition S tatus SNOMED Code Notes Problem Rheumatoid arthritis involving vertebra with positive rheumatoid factor M45.9 Active 030210169 Problem Fibromyalgia M79.7 Active 144992178 Problem Thoracic radiculopathy M54.14 Active 47892223 Problem Use of opiates for therapeutic purposes Z79.891 Active 202696405 Problem Contracture of hand M24.549 Active 087517111 Problem Depression, unspecified depression type F32.9 Active 37736449 Problem Other chronic pain G89.29 Active 96240179 Problem Anxiety F41.9 Active 52106892 Problem Acquired hypothyroidism E03.9 Active 63527884 2 Problem History of rheumatoid arthritis Z87.39 Active 879678051 Problem Irritable bowel syndrome, unspecified type K58.9 Active 89420737 Problem Low back pain M54.5 Active 945113392 Problem Difficulty sleeping G47.9 Active 329499632 Problem Hemiplegic migraine without status migrainosus, not intractable G43.409 Active 51031944 Problem Insomnia, unspecified type G47.00 Active 15225 2000 Problem Chronic GERD K21.9 Active 492231164 Problem Severe depression F32.2 Active 886948757 Problem PTSD (post-traumatic stress disorder) F43.10 Ac tive 28440934 Problem Mild intermittent asthma without complication J45. 20 Active 528255599 ALLERGIES Allergen (clinical drug ingredient) Drug/Non Drug Allergy do cumented on EMR Reaction Allergy Type Onset Date Status Penicillin (For Allergies Use Only) Hives Drug Allerg y Active NSAID's- can not take due to gastric bypass Unknown Non Drug Allergy Active cyclobenzaprine Cyclobenzaprine HCl([facility] Code:[address]-50) Unkn own Drug Allergy Active ibuprofen Ibuprofen(NDC Code:[address]-66) Unknown Drug Allergy Active gabapentin Gabapentin(ND Code:[address]-98) Unknown Drug Allergy Active amitriptyline Amitriptyline HCl([facility] Code:[address]-03) Unknown Dr ug Allergy Active pregabalin Lyrica(ND Code:[address]-88) Unknown Drug Allergy Active duloxetine Cymbalta([facility] Code:[address]-51) Unknown Drug Allergy Active IV Dye Anaphylaxis Non Drug Allergy Active ENCOUNTERS from 1971 to 2020-07-17 Encounter Location Date Provider Diagnosis [facility] [address] [place] [address] Jul Mary Carcamo IMMUNIZATIONS Vaccine Route Administration [...] Education Language: Question Answer Notes Languages spoken: Romanian Yazidism: Question Answer Notes Yazidism 33 None Sexual Hx: Question Answer Notes [...] Notes Start Da te End Date Status PARoxetine HCl ER 25 mg 2 tablet in the morning Orally Once a da y for 30 Days Active Omeprazole 40 MG 1 capsule 30 minutes before morning meal Orally twice a day for 30 days Oct, Active Calcium Citrate + - as directed Orally daily Active Hydrocodone-Acetaminophen 10-325 MG 1 tablet as needed Orally every 6 hrs for 30 Days Jul, Active Multivitamin Adults - Orally daily Active Potassium Chloride ER 10 MEQ 1 tablet with food Oral Once a day for 30 days Active Biotin 1000 MCG 1 tablet Orally Once a day Active Vitamin D-3 1000 UNIT 1 capsule Orally Once a day Active Levothyroxine Sodium 175 MCG 1 tablet in the morning o n an empty stomach Orally Once a day for 30 day(s) Jun, Active Alprazolam 0.5 MG 1 tablet Orally three times a day as needed Aug, Active Vitamin B12 1000 MCG 1 tablet Orally Once a day Active Prazosin HCl 2 MG 2 capsule at bedtime Orally Once a day for 30 days Aug, Active Remeron 30 MG 1 1/2 Orally Once a day Active Ventolin HFA 108 (90 Base) MCG/ACT 2 puffs as needed I nhalation every 4 hours as needed for 30 days Apr, Active Linzess 145 MCG 1 capsule at least 30 minute s before the first meal of the day on an empty stomach Orally Once a day for 30 day(s) Active Nystatin 906895 UNIT/GM 1 application Externally Twice a day for 14 day(s) May, Active PROCEDURES No Information RESULTS No Results REASON FOR VISIT [place] leg pain/ leg cramps MEDICAL (GENERAL) HISTORY Type Description Date Medical [...] History Cluster migraines/low potass ium and magnesium- ([facility]) 04/22/2020 Goals Section No Information Health Concerns No Information MEDICAL EQUIPMENT No Information MENTAL STATUS No Information FUNCTIONAL STATUS No Information ASSESSMENTS No Information PLAN OF TREATMENT Medication Medication Name Sig Start Date Stop Date Hydrocodone-Acetaminophen 10-325 MG 1 tablet as needed Orally every 6 hrs for 30 Days Jul, Next Appt Details Provider Name:Mary Carcamo, 2020-07 07:30:00 AM, [place], [address], Provider Name:Mary Carcamo, 2020-08 03:30:00 PM, [address], [place], [address], Insurance Providers Payer Name Payer Address Payer Phone Insured Name Patient Relati onship to Insured Coverage Start Date Coverage End Date AETNA MEDICARE AETNA [employer] INSURANCE [employer] [address] [facility] [address] ISAÍAS HARDING self
--- OUTSIDE RECORDS SUMMARY | 2020-07-24 08:58 | CCD | Continuity of Care Document ---
Author Author Rosette ARREOLA M.D. Organization Unknown Address [address] [place] [address] Phone [phone] Care Team Providers Care Workers Compensation Paralegal Name Role Phone Mary Carcamo D.O. AUTM [phone] Problems Active Problems Provider Date Migraine Barrera Arreola M.D. Onset: 07/10/2020 Social History Type Date Description Comments Sex Unknown Tobacco Use Start: Unknown Patient has never smoked Allergies, Adverse Reactions, Alerts Active Allergies Reaction Severity Comments Date Penicillin V 07/10/2020 Medications Active Medications SIG Qnty Indications Ordering Provide r Date Verapamil HCL 40mg Tablets Tke by mouth 1/2 tab twice a day for 1 week then take 1 tab by mouth bid. 60tabs Barrera Arreola M.D. 07/10/2020 Paroxetine HCL 40mg Tablets 1 by mouth every day Barrera Arreola M.D. Immunizations Description No Information Available Vital Signs Date Vital Result Comment 07/10/2020 9:46am Respiratory Rate 12 /min Height 64 inches 5'4" Weight 210.00 lb BMI (Body Mass Index) 36.0 kg/m2 [place] Body Weight 120 lb Results Description No Information Available Procedures Description No Information Available Medical Devices Description No Information Available Encounters Description No Information Available Assessments Date Code Description Provider 07/10/2020 G43.719 Chronic migraine wit hout aura, intractable, without status migrainosus Barrera Arreola M.D. 07/10/2020 G43.119 Migraine with aura, intractable, without status migrainosus Barrera Arreola M.D. Plan of Treatment Future Appointment(s):* 09/14/2020 12:30 pm - Barrera Arreola M.D. at [facility] * 07/31/2020 11:00 am - EEG at [facility] Functional Status Description No Information Available Mental Status Description No Information Available Referrals Description No Information Available
--- OUTSIDE RECORDS SUMMARY | 2020-07-24 08:58 | CCD ---
Continuity of Care Document (CCD) Created on: 07/11/2020 Rosette Dean External Reference #: [id number] : 1970 Sex: Female Author Author Rosette ARREOLA M.D. Organization Unknown Address [address] [place] [address] Phone [phone] Care Team Providers Care Texturing Machine Fixer Name Role Phone Mary Carcamo D.O. AUTM [phone] Problems Active Problems Provider Date Migraine Barrera [...] lb BMI (Body Mass Index) 36.0 kg/m2 [place] Body Weight 120 lb Results Description No Information Available Procedures Description No Information Available Medical Devices Description No Information Available Encounters Type Date Location Provider Dx Diagnosis Office Visit 07/10/2020 9:00a Main office - [place] Barrera meza M.D. G43.719 Chronic migraine w/o aura, intractable, w/o stat migr G43.119 Migraine with aura, intracta ble, without status migrainosus Assessments Date Code Description Provider 07/10/2020 G43.719 Chronic migraine wit hout aura, intractable, without status migrainosus Barrera Arreola M.D. 07/10/2020 G43.119 Migraine with aura, intractable, without status migrainosus Barrera Arreola M.D. Plan of Treatment Future Appointment(s):* 09/14/2020 12:30 pm - Barrera Arreola M.D. at [facility] * 07/31/2020 11:00 am - EEG at [facility] Functional Status Description No Information Available Mental Status Description No Information Available Referrals Description No Information Available
--- OUTSIDE RECORDS SUMMARY | 2020-07-24 08:58 | CCD ---
Author Author [facility] Organization [facility] Address Unknown Phone Unavailable Care Team Providers Care Drilling Machine Operator Name Role Phone Mary Carcmao Unavailable PROBLEMS Type Condition ICD9-CM Code XAM22-IG Code Onset Dates Condition S tatus SNOMED Code Notes Problem Rheumatoid arthritis involving vertebra with positive rheumatoid factor M45.9 Active 205728094 Problem Thoracic radiculopathy M54.14 Active 95843041 Problem Use of opiates for therapeutic purposes Z79.891 Active 419498748 Problem Anxiety F41.9 Active 86726042 Problem Fibromyalgia M79.7 Active 466738094 Problem Depression, unspecified depression type F32.9 Active 87304189 Problem Other chronic pain G89.29 Active 83611808 Problem Difficulty sleeping G47.9 Active 710676751 Problem Acquired hypothyroidism E03.9 Active 22430124 2 Problem History of rheumatoid arthritis Z87.39 Active 690437246 Problem Mild intermittent asthma without complication J45. 20 Active 793800001 Problem Contracture of hand M24.549 Active 775026887 Problem Low back pain M54.5 Active 375277141 Problem Insomnia, unspecified type G47.00 Active 02241 2000 Problem Irritable bowel syndrome, unspecified type K58.9 Active 73301886 Problem Chronic GERD K21.9 Active 033225908 Problem Severe depression F32.2 Active 245051019 Problem PTSD (post-traumatic stress disorder) F43.10 Ac tive 88324792 ALLERGIES Allergen (clinical drug ingredient) Drug/Non Drug Allergy do cumented on EMR Reaction Allergy Type Onset Date Status Penicillin (For Allergies Use Only) Hives Drug Allerg y Active NSAID's- can not take due to gastric bypass Unknown Non Drug Allergy Active cyclobenzaprine Cyclobenzaprine HCl([facility] Code:[address]-44) Unkn own Drug Allergy Active ibuprofen Ibuprofen([facility] Code:[address]-28) Unknown Drug Allergy Active gabapentin Gabapentin([facility] Code:[address]-45) Unknown Drug Allergy Active amitriptyline Amitriptyline HCl([facility] Code:[address]-52) Unknown Dr ug Allergy Active pregabalin Lyrica([facility] Code:[address]-26) Unknown Drug Allergy Active duloxetine Cymbalta([facility] Code:[address]-39) Unknown Drug Allergy Active IV Dye Anaphylaxis Non Drug Allergy Active ENCOUNTERS from 1970 to 2020-05-04 Encounter Location Date Provider Diagnosis [facility] [place] [address] [place] [address] Apr Mary Tayloroeanna IMMUNIZATIONS Vaccine Route Administration Date Status Influenza [...] Education Language: Question Answer Notes Languages spoken: Vincentian Buddhist: Question Answer Notes Buddhist 33 None Sexual Hx: Question Answer Notes [...] Information RESULTS No Results REASON FOR VISIT reschedule hosp f/u appt MEDICAL (GENERAL) HISTORY Type Description Date Medical [...] PLAN OF TREATMENT Next Appt Details Provider Name:Mary Tayloralida, 2020-05 04:00:00 PM, [address], [place], [address], Insurance Providers Payer Name Payer Address Payer Phone Insured Name Patient Relati onship to Insured Coverage Start Date Coverage End Date AETNA MEDICARE AETNA [place] [facility] [address] [facility] [address] ISAÍAS HARDING self
--- OUTSIDE RECORDS SUMMARY | 2020-07-24 08:58 | CCD ---
Author Author [facility] Organization [facility] Address Unknown Phone Unavailable Care Team Providers Care Scientific Manager Name Role Phone Sandeep Win Unavailable PROBLEMS Type Condition ICD9-CM Code [id number] Code Onset Dates Condition S tatus SNOMED Code Notes Problem Rheumatoid arthritis involving vertebra with positive rheumatoid factor M45.9 Active 179469717 Problem Fibromyalgia M79.7 Active 783089365 Problem Thoracic radiculopathy M54.14 Active 86733114 Problem Use of opiates for therapeutic purposes Z79.891 Active 530984136 Problem Contracture of hand M24.549 Active 910253857 Problem Depression, unspecified depression type F32.9 Active 20273745 Problem Other chronic pain G89.29 Active 28983372 Problem Anxiety F41.9 Active 20469790 Problem Acquired hypothyroidism E03.9 Active 24179682 2 Problem History of rheumatoid arthritis Z87.39 Active 987201223 Problem Irritable bowel syndrome, unspecified type K58.9 Active 88790246 Problem Low back pain M54.5 Active 697639785 Problem Difficulty sleeping G47.9 Active 844266562 Problem Hemiplegic migraine without status migrainosus, 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 20 Active 521057566 ALLERGIES Allergen (clinical drug ingredient) Drug/Non Drug Allergy do cumented on EMR Reaction Allergy Type Onset Date Status Penicillin (For Allergies Use Only) Hives Drug Allerg y Active NSAID's- can not take due to gastric bypass Unknown Non Drug Allergy Active cyclobenzaprine Cyclobenzaprine HCl([facility] Code:[address]-22) Unkn own Drug Allergy Active ibuprofen Ibuprofen(NDC Code:[address]-64) Unknown Drug Allergy Active gabapentin Gabapentin([facility] Code:[address]-27) Unknown Drug Allergy Active amitriptyline Amitriptyline HCl([facility] Code:[address]-62) Unknown Dr ug Allergy Active pregabalin Lyrica([facility] Code:[address]-37) Unknown Drug Allergy Active duloxetine Cymbalta([facility] Code:[address]-49) Unknown Drug Allergy Active IV Dye Anaphylaxis Non Drug Allergy Active ENCOUNTERS from 1971 to 2020-05-17 Encounter Location Date Provider Diagnosis [facility] [address] [place] [address] May Sandeeprena Win Acute strain of neck muscle, initial enc ounter S16.1XXA ; Strain of left shoulder, initial encounter S46.912A and Sprain of low back, initial encounter S33.5XXA IMMUNIZATIONS Vaccine Route Administration Date Status Influenza [...] Education Language: Question Answer Notes Languages spoken: Kyrgyz Holiness: Question Answer Notes Holiness 33 None Sexual Hx: Question Answer Notes [...] May, Respiratory Rate 18 /min May, Temperature 97.9 degrees Fahrenheit May, Oximetry 98 May, Blood pressure systolic 110 mm Hg May, Blood pressure diastolic 76 mm Hg May, MEDICATIONS Medication SIG (Take, [...] for 12 days May, Ac tive Nystatin 863555 UNIT/GM 1 application Externally Twice a day [...] a day for 30 day(s) Active PROCEDURES No Information RESULTS No Results REASON FOR VISIT [facility] MEDICAL (GENERAL) HISTORY Type Description [...] History Cluster migraines/low potass ium and magnesium- ([facility]) 04/22/2020 Goals Section No Information Health Concerns No Information MEDICAL EQUIPMENT No Information MENTAL STATUS No Information FUNCTIONAL STATUS No Information ASSESSMENTS Encounter Date Diagnosis Notes May, Strain of left shoulder, initial encount er (ICD-10 - S46.912A) May, Sprain of low back, initial encounter (I CD-10 - S33.5XXA) May, Acute strain of neck muscle, initial enc ounter (ICD-10 - S16.1XXA) PLAN OF TREATMENT Medication Medication Name Sig Start Date Stop Date Cyclobenzaprine HCl 10 MG 1 tablet Orally tid for 30 days Hydrocodone-Acetaminophen 10-325 MG 1 tablet as needed Orally every 6 hrs for 30 Days May, Treatment Notes Assessment Notes Clinical Notes Acute strain of neck muscle, initial encounter Your x- ray done through urgent care today was negative for acute fracture. You likely have have a muscle strain at this time. Please apply ice on and off to the affected area for 15 minute intervals over the next 48 hours to help with pain and inflammation. After 48 hours, you may use heat as needed for comfort. Elevate at level of or above your heart to minimize swelling. You may take ibuprofen as needed for pain and inflammation. You may also consider taking acetaminophen for pain. Please avoid aggravating factors. Mild stretching 3 times daily as directed without forcing any of the stretches. Next Appt Details 3-5 days unless improving Reason: Provider Name:Mary Brandonearlanna, 2020-08 03:30:00 PM, [address] [place] [address], [phone], Insurance Providers Payer Name Payer Address Payer Phone Insured Name Patient Relati onship to Insured Coverage Start Date Coverage End Date AETNA MEDICARE AETNA [employer] [facility] INSURANCE [employer] [address] [facility] [phone] [employer] [place] [address] [address] [facility] [address] [employer] self
--- OUTSIDE RECORDS SUMMARY | 2020-07-24 08:58 | CCD ---
Author Author [facility] Organization [facility] Address Unknown Phone Unavailable Care Team Providers Care Signal Inspector Name Role Phone Mary Carcamo Unavailable PROBLEMS Type Condition ICD9-CM Code [id number] Code Onset Dates Condition S tatus SNOMED Code Notes Problem Rheumatoid arthritis involving vertebra with positive rheumatoid factor M45.9 Active 837739080 Problem Fibromyalgia M79.7 Active 472607512 Problem Thoracic radiculopathy M54.14 Active 86402443 Problem Use of opiates for therapeutic purposes Z79.891 Active 109849728 Problem Contracture of hand M24.549 Active 500546205 Problem Depression, unspecified depression type F32.9 Active 68839735 Problem Other chronic pain G89.29 Active 37430112 Problem Anxiety F41.9 Active 50636428 Problem Acquired hypothyroidism E03.9 Active 40867787 2 Problem History of rheumatoid arthritis Z87.39 Active 082453803 Problem Irritable bowel syndrome, unspecified type K58.9 Active 24717649 Problem Low back pain M54.5 Active 786063312 Problem Difficulty sleeping G47.9 Active 503140410 Problem Hemiplegic migraine without status migrainosus, not intractable G43.409 Active 58227799 Problem Insomnia, unspecified type G47.00 Active 91696 2000 Problem Chronic GERD K21.9 Active 227177659 Problem Severe depression F32.2 Active 376761214 Problem PTSD (post-traumatic stress disorder) F43.10 Ac tive 76913724 Problem Mild intermittent asthma without complication J45. 20 Active 875216843 ALLERGIES Allergen (clinical drug ingredient) Drug/Non Drug Allergy do cumented on EMR Reaction Allergy Type Onset Date Status Penicillin (For Allergies Use Only) Hives Drug Allerg y Active NSAID's- can not take due to gastric bypass Unknown Non Drug Allergy Active cyclobenzaprine Cyclobenzaprine HCl([facility] Code:[address]-38) Unkn own Drug Allergy Active ibuprofen Ibuprofen([facility] Code:[address]-69) Unknown Drug Allergy Active gabapentin Gabapentin(ND Code:[address]-76) Unknown Drug Allergy Active amitriptyline Amitriptyline HCl(ND Code:[address]-61) Unknown Dr ug Allergy Active pregabalin Lyrica(ND Code:[address]-36) Unknown Drug Allergy Active duloxetine Cymbalta([facility] Code:[address]-55) Unknown Drug Allergy Active IV Dye Anaphylaxis Non Drug Allergy Active ENCOUNTERS from 1971 to 2020-05-23 Encounter Location Date Provider Diagnosis [facility] [address] [place] [address] May [place] Brandonoeanna Low back pain M54.5 ; Mid back pain M54. 9 ; Cervicalgia M54.2 and Left anterior shoulder pain M25.512 IMMUNIZATIONS Vaccine Route Administration Date Status Influenza [...] Education Language: Question Answer Notes Languages spoken: Australian Zoroastrian: Question Answer Notes Zoroastrian 33 None Sexual Hx: Question Answer Notes [...] No Information VITAL SIGNS Weight 215 lbs lbs May, Height 63 in May, BMI 38.08 kg/m2 May, Heart Rate 83 /min May, Respiratory Rate 18 /min May, Temperature 98.3 degrees Fahrenheit May, Oximetry 98%ra May, Blood pressure systolic 99 mm Hg May, Blood pressure diastolic 67 mm Hg May, MEDICATIONS Medication SIG (Take, Route, Frequency, Duration) Notes Start Da te End Date Status Multivitamin Adults - Orally daily Active Metoclopramide HCl 10 MG 1 tablet Orally every 6 hours as needed for headache Not-Taking Vitamin D-3 1000 UNIT 1 capsule Orally Once a day Active Prazosin HCl 2 MG 2 capsule at bedtime Orally Once a day 2 Aug, 2019 Active Tizanidine HCl 4 MG 1 tablet [...] as directed for 12 days May, Active Nystatin 550127 UNIT/GM 1 application Externally Twice a day [...] Information RESULTS No Results REASON FOR VISIT not better requesting physical therapy referral, Istop: [id number] MEDICAL (GENERAL) HISTORY Type Description Date Medical [...] History Cluster migraines/low potass ium and magnesium- ([facility]) 04/22/2020 Goals Section No Information Health Concerns No Information MEDICAL EQUIPMENT No Information MENTAL STATUS No Information FUNCTIONAL STATUS No Information ASSESSMENTS Encounter Date Diagnosis Assessment Notes Treatment Notes Treatm ent Clinical Notes May, Low back pain (ICD-10 - M54.5) Refill of cyclobenzaprine sent. Hydrocodone will be increased to 4 times daily for 1 month. Referral placed to physical therapy May, Mid back pain (ICD-10 - M54.9) May, Cervicalgia (ICD-10 - M54.2) May, Left anterior shoulder pain (ICD-10 - M25.512) PLAN OF TREATMENT Medication Medication Name Sig Start Date Stop Date Cyclobenzaprine HCl 10 MG 1 tablet Orally tid for 30 days Hydrocodone-Acetaminophen 10-325 MG 1 tablet as needed Orally every 6 hrs for 30 Days May, Treatment Notes Assessment Notes Clinical Notes Low back pain Refill of cyclobenza guillermo sent. Hydrocodone will be increased to 4 times daily for 1 month. Referral placed to physical therapy Next Appt Details as scheduled Reason: Provider Name:Mary Carcamo, 2020-08 03:30:00 PM, [address], [place], [address], Insurance Providers Payer Name Payer Address Payer Phone Insured Name Patient Relati onship to Insured Coverage Start Date Coverage End Date [employer] [place] [address] [address] [facility] [phone] ISAÍ[employer]ING self AETNA MEDICARE AETNA [employer] INSURANCE [place] [address] [facility] [phone] ISAÍAS HARDING self
--- OUTSIDE RECORDS SUMMARY | 2020-07-24 08:58 | CCD ---
Author Author [facility] Organization [facility] Address Unknown Phone Unavailable Care Team Providers Care Leach Cell Operator Name Role Phone Jhonathanivett Mary Unavailable PROBLEMS Type Condition ICD9-CM Code [id number] Code Onset Dates Condition S tatus SNOMED Code Notes Problem Rheumatoid arthritis involving vertebra with positive rheumatoid factor M45.9 Active 985337915 Problem Fibromyalgia M79.7 Active 700927962 Problem Thoracic radiculopathy M54.14 Active 03913772 Problem Use of opiates for therapeutic purposes Z79.891 Active 939750538 Problem Contracture of hand M24.549 Active 036125773 Problem Depression, unspecified depression type F32.9 Active 74297497 Problem Other chronic pain G89.29 Active 30883685 Problem Anxiety F41.9 Active 02625346 Problem Acquired hypothyroidism E03.9 Active 14862104 2 Problem History of rheumatoid arthritis Z87.39 Active 581114996 Problem Irritable bowel syndrome, unspecified type K58.9 Active 12119882 Problem Low back pain M54.5 Active 791743257 Problem Difficulty sleeping G47.9 Active 095812078 Problem Hemiplegic migraine without status migrainosus, not intractable G43.409 Active 37167313 Problem Insomnia, unspecified type G47.00 Active 67952 2000 Problem Chronic GERD K21.9 Active 550143874 Problem Severe depression F32.2 Active 636458161 Problem PTSD (post-traumatic stress disorder) F43.10 Ac tive 19889645 Problem Mild intermittent asthma without complication J45. 20 Active 306243519 ALLERGIES Allergen (clinical drug ingredient) Drug/Non Drug Allergy do cumented on EMR Reaction Allergy Type Onset Date Status Penicillin (For Allergies Use Only) Hives Drug Allerg y Active NSAID's- can not take due to gastric bypass Unknown Non Drug Allergy Active cyclobenzaprine Cyclobenzaprine HCl([facility] Code:[address]-17) Unkn own Drug Allergy Active ibuprofen Ibuprofen([facility] Code:[address]-19) Unknown Drug Allergy Active gabapentin Gabapentin(ND Code:[address]-90) Unknown Drug Allergy Active amitriptyline Amitriptyline HCl([facility] Code:[address]-65) Unknown Dr ug Allergy Active pregabalin Lyrica(ND Code:[address]-76) Unknown Drug Allergy Active duloxetine Cymbalta([facility] Code:[address]-90) Unknown Drug Allergy Active IV Dye Anaphylaxis Non Drug Allergy Active ENCOUNTERS from 1971 to 2020-07-19 Encounter Location Date Provider Diagnosis [facility] [address] [place] [address] Jul Mary Schoeneman Myalgia M79.10 and Low back pain M54.5 IMMUNIZATIONS Vaccine [...] Education Language: Question Answer Notes Languages spoken: Swiss Christianity: Question Answer Notes Christianity 33 None Sexual Hx: Question Answer Notes [...] FOR REFERRAL No Information VITAL SIGNS Weight 220 lbs lbs Jul, Height 63 in Jul, BMI 38.97 kg/m2 Jul, Heart Rate 76 /min Jul, Respiratory Rate 18 /min Jul, Temperature 98.1 degrees Fahrenheit Jul, Oximetry 98% ra Jul, Blood pressure systolic 123 mm Hg Jul, Blood pressure diastolic 88 mm Hg Jul, MEDICATIONS Medication SIG (Take, Route, Frequency, Duration) [...] a day for 30 day(s) Active Nystatin 008512 UNIT/GM 1 application Externally Twice a day for 14 day(s) May, Active PROCEDURES No Information RESULTS No Results REASON FOR VISIT leg pain MEDICAL (GENERAL) HISTORY Type Description Date Medical [...] History Cluster migraines/low potass ium and magnesium- ([facility]) 04/22/2020 Goals Section No Information Health Concerns No Information MEDICAL EQUIPMENT No Information MENTAL STATUS No Information FUNCTIONAL STATUS No Information ASSESSMENTS Encounter Date Diagnosis Assessment Notes Treatment Notes Treatm ent Clinical Notes Jul, Myalgia (ICD-10 - M79.10) Patient will have further evaluation with BMP, magnesium levels to rule out electrolyte disturbance. Referral to rheumatology was discussed with patient in the event that electrolytes are normal. Patient would like to wait on referral at this time as she is dealing with some other health concerns. Jul, Low back pain (ICD-10 - M54.5) I stop: [id number]. Refill sent PLAN OF TREATMENT Medication Medication Name Sig Start Date Stop Date Hydrocodone-Acetaminophen 10-325 MG 1 tablet as needed Orally every 6 hrs for 30 Days Jul, Treatment Notes Assessment Notes Clinical Notes Myalgia Patient will have fu rther evaluation with BMP, magnesium levels to rule out electrolyte disturbance. Referral to rheumatology was discussed with patient in the event that electrolytes are normal. Patient would like to wait on referral at this time as she is dealing with some other health concerns. Low back pain I stop: [id number]. R efill sent Future Test Test Name Order Date Basic Metabolic Profile (BMP) [id number] MAGNESIUM LEVEL [id number] Next Appt Details as scheduled Reason: Provider Name:Mary Carcamo, 2020-07 07:30:00 AM, [place] [address] [place], [address], Provider Name:Mary Carcamo 2020-08 03:30:00 PM, [place] [address] [place], [address], Insurance Providers Payer Name Payer Address Payer Phone Insured Name Patient Relati onship to Insured Coverage Start Date Coverage End Date AETNA MEDICARE AETNA [employer] INSURANCE [employer] [address] [facility] [phone] ISAÍAS HARDING self
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
--- OUTSIDE RECORDS SUMMARY | 2020-07-24 08:59 | CCD ---
Author Author [facility] Organization [facility] Address Unknown Phone Unavailable Support Name Relationship Address Phone NO, CONTACT Next Of Kin Unknown Nathalia Brown Next Of Kin [address] [phone] JEREMIE BROWN Next Of Kin [address] [phone] GUSTAVO GUADARRAMA Next Of Kin [address] [facility] [address] [place] [address] BETZY GUADARRAMA Next Of Kin [address] [facility] [address] [place] [address] JOANNA GUADARRAMA Next Of Kin [phone] [place] [address] [address] [place] [address] DUNCAN GUADARRAMA Next Of Kin [address] [facility] [address] [place] [address] NATHALIA BROWN Next Of Kin [address] [place] [address] MUMTAZ MANUEL Next Of Kin [address] [place], [place] [id number] TERRI BROWN Next Of Kin [address] [phone] SHAHID ARGUETA Next Of Kin Unknown DISABLED Next Of Kin Unknown Unavailable UNKNOWN Next Of Kin Unknown Unavailable [place] [address] NONE UE Next Of Kin Unknown Unavailable EWELINA ARGUETA Next Of Kin [address] [place] [address] SHAHID ARGUETA Next Of Kin Unknown Betzy Guadarrama ECON / [place] [address] [phone] J[address]EM[address] BROWN [address] [place] [address] [phone] Care Team Providers Care Rippler Name Role Phone SETTRivera WHITE MD Unavailable Unavailable SETTERRivera MD Unavailable Unavailable SETTERRivera MD Unavailable Unavailable SETTRivera WHITE MD Unavailable Unavailable Rivera KENT MD Unavailable Unavailable SETTERRivera MD Unavailable Unavailable SETTERRivera MD Unavailable Unavailable SETTERRivera MD Unavailable Unavailable SETTERRivera MD Unavailable Unavailable SETTERRivera MD Unavailable Unavailable SETTRivera WHITE MD Unavailable Unavailable QUITAERRivera MD Unavailable Unavailable SETTERRivera MD Unavailable Unavailable SETTERRivera MD Unavailable Unavailable SETTERRivera MD Unavailable Unavailable SETTERRivera MD Unavailable Unavailable SETTERRivera MD Unavailable Unavailable SETTERRivera MD Unavailable Unavailable SETTERRivera MD Unavailable Unavailable SETTERRivera MD Unavailable Unavailable SETTERRivera MD Unavailable Unavailable SETTERRivera MD Unavailable Unavailable QUITAERRivera MD Unavailable Unavailable Rivera KENT MD Unavailable Unavailable Rivera KENT MD Unavailable Unavailable QUITAERRivera MD Unavailable Unavailable QIUTAERRivera MD Unavailable Unavailable QUITAERRivera MD Unavailable Unavailable SETTERRivera MD Unavailable Unavailable QUITAERRivera MD Unavailable Unavailable Rivera KENT MD Unavailable Unavailable QUITAERRivera MD Unavailable Unavailable Rivera KENT MD Unavailable Unavailable SETTRivera WHITE MD Unavailable Unavailable Rivera KENT MD Unavailable Unavailable Rivera KENT MD Unavailable Unavailable Rivera KENT MD Unavailable Unavailable Rivera KENT MD Unavailable Unavailable Rivera KENT MD Unavailable Unavailable Rivera KENT MD Unavailable Unavailable Rivera KENT MD Unavailable Unavailable Rivera KENT MD Unavailable Unavailable Rivera KENT MD Unavailable Unavailable SETTERRivera MD Unavailable Unavailable Rivera KENT MD Unavailable Unavailable Rivera KENT MD Unavailable Unavailable QUITAERRivera MD Unavailable Unavailable QUITAERRivera MD Unavailable Unavailable SETTERRivera MD Unavailable Unavailable SETTERRivera MD Unavailable Unavailable SETTERRivera MD Unavailable Unavailable SETTERRivera MD Unavailable Unavailable SETTERRivera MD Unavailable Unavailable SETTERRivera MD Unavailable Unavailable SETTERRivera MD Unavailable Unavailable SETTERRivera MD Unavailable Unavailable SETTER, Rivera SWANSON MD Unavailable Unavailable SETTER, Rivera SWANSON MD Unavailable Unavailable SETTER, Rivera SWANSON MD Unavailable Unavailable SETTER, Rivera SWANSON MD Unavailable Unavailable SETTER, Rivera SWANSON MD Unavailable Unavailable SETTERRivera MD Unavailable Unavailable SETTER, Rivera SWANSON MD Unavailable Unavailable SETTER, Rivera SWANSON MD Unavailable Unavailable SETTER, Rivera SWANSON MD Unavailable Unavailable SETTER, Rivera SWANSON MD Unavailable Unavailable SETTER, Rivera SWANSON MD Unavailable Unavailable SETTER, Rivera SWANSON MD Unavailable Unavailable SETTER, Rivera SWANSON MD Unavailable Unavailable SETTER, Rivera SWANSON MD Unavailable Unavailable SETTER, Rivera SWANSON MD Unavailable Unavailable SETTER, Rivera SWANSON MD Unavailable Unavailable SETTER, Rivera SWANSON MD Unavailable Unavailable SETTER, Rivera SWANSON MD Unavailable Unavailable SETTERRivera MD Unavailable Unavailable SETTERRivera MD Unavailable Unavailable SETTERRivera MD Unavailable Unavailable SETTER, Rivera SWANSON MD Unavailable Unavailable SETTER, Rivera SWANSON MD Unavailable Unavailable SETTERRivera MD Unavailable Unavailable SETTERRivera MD Unavailable Unavailable SETTERRivera MD Unavailable Unavailable SETTERRivera MD Unavailable Unavailable SETTERRivera MD Unavailable Unavailable SETTERRivera MD Unavailable Unavailable SETTERRivera MD Unavailable Unavailable SETTERRivera MD Unavailable Unavailable SETTERRivera MD Unavailable Unavailable SETTERRivera MD Unavailable Unavailable SETTERRivera MD Unavailable Unavailable SETTERRivera MD Unavailable Unavailable SETTERRivera MD Unavailable Unavailable SETTERRivera MD Unavailable Unavailable SETTERRivera MD Unavailable Unavailable SETTERRivera MD Unavailable Unavailable SETTERRivera MD Unavailable Unavailable SETTERRivera MD Unavailable Unavailable SETTERRivera MD Unavailable Unavailable SETTERRivera MD Unavailable Unavailable SETTERRivera MD Unavailable Unavailable SETTERRivera MD Unavailable Unavailable SETTERRivera MD Unavailable Unavailable SETTERRivera MD Unavailable Unavailable SETTERRivera MD Unavailable Unavailable SETTERRivera MD Unavailable Unavailable SETTERRivera MD Unavailable Unavailable Pugh, W Srini RPA-C Unavailable Unavailable Pugh, W Srini RPA-C Unavailable Unavailable Pugh, W Srini RPA-C Unavailable Unavailable Pugh, W Srini RPA-C Unavailable Unavailable Pugh, W Srini RPA-C Unavailable Unavailable Pugh, W Srini RPA-C Unavailable Unavailable Pugh, W Srini RPA-C Unavailable Unavailable Pugh, W Srini RPA-C Unavailable Unavailable Pugh, W Srini RPA-C Unavailable Unavailable Pugh, W Srini RPA-C Unavailable Unavailable Pugh, W Srini RPA-C Unavailable Unavailable Pugh, W Srini RPA-C Unavailable Unavailable Pugh, W Srini RPA-C Unavailable Unavailable Pugh, W Srini RPA-C Unavailable Unavailable Pugh, W Srini RPA-C Unavailable Unavailable Upgh, W Srini RPA-C Unavailable Unavailable ALTAF, L PAYAM PA Unavailable Unavailable ALTAF, L PAYAM PA Unavailable Unavailable ALTAF, L PAYAM PA Unavailable Unavailable ALTAF, L PAYAM PA Unavailable Unavailable ALTAF, L PAYAM PA Unavailable Unavailable ALTAF, L PAYAM PA Unavailable Unavailable ALTAF, L PAYAM PA Unavailable Unavailable ALTAF, L PAYAM PA Unavailable Unavailable ALTAF, L PAYAM PA Unavailable Unavailable ALTAF, L PAYAM PA Unavailable Unavailable ALTAF, L PAYAM PA Unavailable Unavailable ALTAF, L PAYAM PA Unavailable Unavailable ALTAF, L PAYAM PA Unavailable Unavailable ALTAF, L PAYAM PA Unavailable Unavailable ALTAF, L PAYAM PA Unavailable Unavailable ALTAF, L PAYAM PA Unavailable Unavailable ALTAF, L PAYAM PA Unavailable Unavailable ALTAF, L PAYAM PA Unavailable Unavailable ALTAF, L PAYAM PA Unavailable Unavailable Rzhevsky, Nuzhat PAINTER RAILROAD CAR-C Unavailable Unavailable Rzhevsky, Nuzhat PAINTER RAILROAD CAR-C Unavailable Unavailable Rzhevsky, Nuzhat PAINTER RAILROAD CAR-C Unavailable Unavailable Rzhevsky, Nuzhat PAINTER RAILROAD CAR-C Unavailable Unavailable Rzhevsky, Nuzhat PAINTER RAILROAD CAR-C Unavailable Unavailable Rzhevsky, Nuzhat PAINTER RAILROAD CAR-C Unavailable Unavailable Rzhevsky, Nuzhat PAINTER RAILROAD CAR-C Unavailable Unavailable Rzhevsky, Nuzhat PAINTER RAILROAD CAR-C Unavailable Unavailable Rzhevsky, Nuzhat PAINTER RAILROAD CAR-C Unavailable Unavailable Rzhevsky, Nuzhat PAINTER RAILROAD CAR-C Unavailable Unavailable Rzhevsky, Nuzhat PAINTER RAILROAD CAR-C Unavailable Unavailable Rzhevsky, Nuzhat PAINTER RAILROAD CAR-C Unavailable Unavailable Rzhevsky, Nuzhat PAINTER RAILROAD CAR-C Unavailable Unavailable Rzhevsky, Nuzhat PAINTER RAILROAD CAR-C Unavailable Unavailable Rzhevsky, Nuzhat PAINTER RAILROAD CAR-C Unavailable Unavailable Rzhevsky, Nuzhat PAINTER RAILROAD CAR-C Unavailable Unavailable Rzhevsky, Nuzhat PAINTER RAILROAD CAR-C Unavailable Unavailable Rzhevsky, Nuzhat PAINTER RAILROAD CAR-C Unavailable Unavailable Rzhevsky, Nuzhat PAINTER RAILROAD CAR-C Unavailable Unavailable Rzhevsky, Nuzhat PAINTER RAILROAD CAR-C Unavailable Unavailable Rzhevsky, Nuzhat PAINTER RAILROAD CAR-C Unavailable Unavailable Rzhevsky, Nuzhat PAINTER RAILROAD CAR-C Unavailable Unavailable Rzhevsky, Nuzhat PAINTER RAILROAD CAR-C Unavailable Unavailable Rzhevsky, Nuzhat PAINTER RAILROAD CAR-C Unavailable Unavailable Rzhevsky, Nuzhat PAINTER RAILROAD CAR-C Unavailable Unavailable Rzhevsky, Nuzhat PAINTER RAILROAD CAR-C Unavailable Unavailable Rzhevsky, Nuzhat PAINTER RAILROAD CAR-C Unavailable Unavailable Rzhevsky, Nuzhat PAINTER RAILROAD CAR-C Unavailable Unavailable Jorgito, Warwick Cally RPA Unavailable Unavailable Jorgito, Junior Cally RPA Unavailable Unavailable Jorgito, Junior Cally RPA Unavailable Unavailable Jorgito, Junior Cally RPA Unavailable Unavailable Jorgito, Junior Cally RPA Unavailable Unavailable Jorgito, Junior Cally RPA Unavailable Unavailable Jorgito, Junior Cally RPA Unavailable Unavailable Jorgito, Junior Cally RPA Unavailable Unavailable Jorgito, Junior Cally RPA Unavailable Unavailable Jorgito, Junior Cally RPA Unavailable Unavailable Jorgito, Warwick Cally RPA Unavailable Unavailable Jorgito, Junior Cally RPA Unavailable Unavailable Jorgito, Warwick Cally RPA Unavailable Unavailable Jorgito, Warwick Cally RPA Unavailable Unavailable Jorgito, Junior Cally RPA Unavailable Unavailable Jorgito, Junior Cally RPA Unavailable Unavailable Jorgito, Warwick Cally RPA Unavailable Unavailable Jorgito, Junior Cally RPA Unavailable Unavailable Jorgito, Junior Cally RPA Unavailable Unavailable Jorgito, Warwick Cally RPA Unavailable Unavailable Jorgito, Junior Cally RPA Unavailable Unavailable Jorgito, Junior Cally RPA Unavailable Unavailable Jorgito, Junior Cally RPA Unavailable Unavailable Khalif, A Eneida PAINTER RAILROAD CAR Unavailable Unavailable Khalif, A Eneida PAINTER RAILROAD CAR Unavailable Unavailable Khalif, A Eneida PAINTER RAILROAD CAR Unavailable Unavailable Khalif, A Eneida PAINTER RAILROAD CAR Unavailable Unavailable Khalif, A Eneida PAINTER RAILROAD CAR Unavailable Unavailable Khalif, A Eneida PAINTER RAILROAD CAR Unavailable Unavailable Khalif, A Eneida PAINTER RAILROAD CAR Unavailable Unavailable Khalif, A Eneida PAINTER RAILROAD CAR Unavailable Unavailable Khalif, A Eneida PAINTER RAILROAD CAR Unavailable Unavailable Khalif, A Eneida PAINTER RAILROAD CAR Unavailable Unavailable Khalif, A Eneida PAINTER RAILROAD CAR Unavailable Unavailable Khalif, A Eneida PAINTER RAILROAD CAR Unavailable Unavailable Khalif, A Eneida PAINTER RAILROAD CAR Unavailable Unavailable Khalif, A Eneida PAINTER RAILROAD CAR Unavailable Unavailable Khalif, A Eneida PAINTER RAILROAD CAR Unavailable Unavailable Khalif, A Eneida PAINTER RAILROAD CAR Unavailable Unavailable Khalif, A Eneida PAINTER RAILROAD CAR Unavailable Unavailable Khalif, A Eneida PAINTER RAILROAD CAR Unavailable Unavailable Khalif, A Eneida PAINTER RAILROAD CAR Unavailable Unavailable Khalif, A Eneida PAINTER RAILROAD CAR Unavailable Unavailable Khalif, A Eneida PAINTER RAILROAD CAR Unavailable Unavailable Khalif, A Eneida PAINTER RAILROAD CAR Unavailable Unavailable Khalif, A Eneida PAINTER RAILROAD CAR Unavailable Unavailable Khalif, A Eneida PAINTER RAILROAD CAR Unavailable Unavailable Khalif, A Eneida PAINTER RAILROAD CAR Unavailable Unavailable Khalif, A Eneida PAINTER RAILROAD CAR Unavailable Unavailable Khalif, A Eneida PAINTER RAILROAD CAR Unavailable Unavailable Khalif, A Eneida PAINTER RAILROAD CAR Unavailable Unavailable Khalif, A Eneida PAINTER RAILROAD CAR Unavailable Unavailable Khalif, A Eneida PAINTER RAILROAD CAR Unavailable Unavailable Khalif, A Eneida PAINTER RAILROAD CAR Unavailable Unavailable Khalif, A Eneida PAINTER RAILROAD CAR Unavailable Unavailable Khalif, A Eneida PAINTER RAILROAD CAR Unavailable Unavailable Khalif, A Eneida PAINTER RAILROAD CAR Unavailable Unavailable Khalif, A Eneida PAINTER RAILROAD CAR Unavailable Unavailable Khalif, A Eneida PAINTER RAILROAD CAR Unavailable Unavailable Khalif, A Eneida PAINTER RAILROAD CAR Unavailable Unavailable Khalif, A Eneida PAINTER RAILROAD CAR Unavailable Unavailable Khalif, A Eneida PAINTER RAILROAD CAR Unavailable Unavailable Khalif, A Eneida PAINTER RAILROAD CAR Unavailable Unavailable Khalif, A Eneida PAINTER RAILROAD CAR Unavailable Unavailable Khalif, A Eneida PAINTER RAILROAD CAR Unavailable Unavailable Khalif, A Eneida PAINTER RAILROAD CAR Unavailable Unavailable Khalif, A Eneida PAINTER RAILROAD CAR Unavailable Unavailable ALANIZ, REI Unavailable Unavailable BROWN, L ALISON Unavailable Unavailable ADIA, DMITRY EVANS PA Unavailable Unavailable ADIA, DMITRY EVANS PA Unavailable Unavailable ADIA, DMITRY EVANS PA Unavailable Unavailable ADIA, DMITRY EVANS PA Unavailable Unavailable ADIA, DMITRY EVANS PA Unavailable Unavailable ADIA, DMITRY EVANS PA Unavailable Unavailable ADIA, DMITRY NATHAN PA Unavailable Unavailable ADIA, DMITRY NATHAN PA Unavailable Unavailable ADIA, DMITRY NATHAN PA Unavailable Unavailable ADIA, DMITRY NATHAN PA Unavailable Unavailable ADIA, DMITRY NATHAN PA Unavailable Unavailable ADIA, DMITRY NATHAN PA Unavailable Unavailable ADIA, DMITRY NATHAN PA Unavailable Unavailable ADIA, DMITRY NTAHAN PA Unavailable Unavailable ADIA, DMITRY NATHAN PA Unavailable Unavailable ADIA, DMITRY NATHAN PA Unavailable Unavailable ADIA, DMITRY NATHAN PA Unavailable Unavailable ADIA, DMITRY NATHAN PA Unavailable Unavailable ADIA, DMITRY NATHAN PA Unavailable Unavailable ADIA, DMITRY NATHAN PA Unavailable Unavailable ADIA, DMITRY NATHAN PA Unavailable Unavailable DESJARLAIS, ESTEBAN FENCE MANUFACTURE SUPERVISOR Unavailable Unavailable DESJARLAIS, ESTEBAN FENCE MANUFACTURE SUPERVISOR Unavailable Unavailable DESJARLAIS, ESTEBAN FENCE MANUFACTURE SUPERVISOR Unavailable Unavailable DESJARLAIS, ESTEBAN FENCE MANUFACTURE SUPERVISOR Unavailable Unavailable DESJARLAIS, ESTEBAN FENCE MANUFACTURE SUPERVISOR Unavailable Unavailable DESJARLAIS, ESTEBAN FENCE MANUFACTURE SUPERVISOR Unavailable Unavailable DESJARLAIS, ESTEBAN FENCE MANUFACTURE SUPERVISOR Unavailable Unavailable DESJARLAIS, ESTEBAN FENCE MANUFACTURE SUPERVISOR Unavailable Unavailable DESJARLAIS, ESTEBAN FENCE MANUFACTURE SUPERVISOR Unavailable Unavailable Ashlyn Gaytan MD Unavailable Unavailable Ashlyn Gaytan MD Unavailable Unavailable Ashlyn Gaytan MD Unavailable Unavailable Ashlyn Gaytan MD Unavailable Unavailable Ashlyn Gaytan MD Unavailable Unavailable Ashlyn Gaytan MD Unavailable Unavailable Ashlyn Gaytan MD Unavailable Unavailable Ashlyn Gaytan MD Unavailable Unavailable Ashlyn Gaytan MD Unavailable Unavailable Ashlyn Gaytan MD Unavailable Unavailable Ashlyn Gaytan MD Unavailable Unavailable Ashlyn Gaytan MD Unavailable Unavailable Ashlyn Gaytan MD Unavailable Unavailable Ashlyn Gaytan MD Unavailable Unavailable Ashlyn Gaytan MD Unavailable Unavailable Ashlyn Gaytan MD Unavailable Unavailable Ashlyn Gaytan MD Unavailable Unavailable Ashlyn Gaytan MD Unavailable Unavailable Ashlyn Gaytan MD Unavailable Unavailable Ashlyn Gaytan MD Unavailable Unavailable Ashlyn Gaytan MD Unavailable Unavailable Ashlyn Gaytan MD Unavailable Unavailable Ashlyn Gaytan MD Unavailable Unavailable Ashlyn Gaytan MD Unavailable Unavailable Ashlyn Gaytan MD Unavailable Unavailable Ashlyn Gaytan MD Unavailable Unavailable Ashlyn Gaytan MD Unavailable Unavailable Ashlyn Gaytan MD Unavailable Unavailable Ashlyn Gaytan MD Unavailable Unavailable Ashlyn Gaytan MD Unavailable Unavailable Ashlyn Gaytan MD Unavailable Unavailable Ashlyn Gaytan MD Unavailable Unavailable Ashlyn Gaytan MD Unavailable Unavailable Ashlyn Gaytan MD Unavailable Unavailable Ashlyn Gaytan MD Unavailable Unavailable Ashlyn Gaytan MD Unavailable Unavailable Ashlyn Gaytan MD Unavailable Unavailable Ashlyn Gaytan MD Unavailable Unavailable Ashlyn Gaytan MD Unavailable Unavailable Ashlyn Gaytan MD Unavailable Unavailable Ashlyn Gaytan MD Unavailable Unavailable Ashlyn Gaytan MD Unavailable Unavailable Ashlyn Gaytan MD Unavailable Unavailable Ashlyn Gaytan MD Unavailable Unavailable Ashlyn Gaytan MD Unavailable Unavailable Ashlyn Gaytan MD Unavailable Unavailable Ashlyn Gaytan MD Unavailable Unavailable Ashlyn Gaytan MD Unavailable Unavailable Ashlyn Gaytan MD Unavailable Unavailable Ashlyn Gaytan MD Unavailable Unavailable Ashlyn Gaytan MD Unavailable Unavailable Ashlyn Gaytan MD Unavailable Unavailable Ashlyn Gaytan MD Unavailable Unavailable Ashlyn Gaytan MD Unavailable Unavailable Ashlyn Gaytan MD Unavailable Unavailable Ashlyn Gaytan MD Unavailable Unavailable Ashlyn Gaytan MD Unavailable Unavailable Ashlyn Gaytan MD Unavailable Unavailable Ashlyn Gaytan MD Unavailable Unavailable Ashlyn Gaytan MD Unavailable Unavailable Ashlyn Gaytan MD Unavailable Unavailable Ashlyn Gaytan MD Unavailable Unavailable Ashlyn Gaytan MD Unavailable Unavailable Ashlyn Gaytan MD Unavailable Unavailable Ashlyn Gaytan MD Unavailable Unavailable Ashlyn Gaytan MD Unavailable Unavailable Ashlyn Gaytan MD Unavailable Unavailable Ashlyn Gaytan MD Unavailable Unavailable Ashlyn Gaytan MD Unavailable Unavailable Ashlyn Gaytan MD Unavailable Unavailable Ashlny Gaytan MD Unavailable Unavailable Ashlyn Gaytan MD Unavailable Unavailable Ashlyn Gaytan MD Unavailable Unavailable Ashlyn Gaytan MD Unavailable Unavailable Ashlyn Gaytan MD Unavailable Unavailable Wenceslao BIANCHI, Dr. Yaz Small Unavailable Unavailable Wenceslao BIANCHI, Dr. Yaz Small Unavailable Unavailable VILLAGOMEZ, Jared SMITH MD Unavailable Unavailable VILLAGOMEZ, Jared SMITH MD Unavailable Unavailable VILLAGOMEZ, Jared SMITH MD Unavailable Unavailable VILLAGOMEZ, Jared SMITH MD Unavailable Unavailable VILLAGOMEZ, Jared SMITH MD Unavailable Unavailable VILLAGOMEZ, Jared SMITH MD Unavailable Unavailable VILLAGOMEZ, L LUIS BIANCHI Unavailable Unavailable VILLAGOMEZ, Jared SMITH MD Unavailable Unavailable VILLAGOMEZ, L LUIS BIANCHI Unavailable Unavailable VILLAGOMEZ, Jared SMITH MD Unavailable Unavailable VILLAGOMEZ, L LUIS BIANCHI Unavailable Unavailable VILLAGOMEZ, L LUIS BIANCHI Unavailable Unavailable VILLAGOMEZ, L LUIS BIANCHI Unavailable Unavailable VILLAGOMEZ, L LUIS BIANCHI Unavailable Unavailable VILLAGOMEZ, L LUIS BIANCHI Unavailable Unavailable VILLAGOMEZ, L LUIS BIANCHI Unavailable Unavailable VILLGAOMEZ, L LUIS BIANCHI Unavailable Unavailable VILLAGOMEZ, L LUIS BIANCHI Unavailable Unavailable VILLAGOMEZ, L LUIS IBANCHI Unavailable Unavailable VILLAGOMEZ, L LUIS BIANCHI Unavailable Unavailable VILLAGOMEZ, L LUIS BIANCHI Unavailable Unavailable VILLAGOMEZ, L LUIS BIANCHI Unavailable Unavailable VILLAGOMEZ, L LUIS BIANCHI Unavailable Unavailable VILLAGOMEZ, L LUIS BIANCHI Unavailable Unavailable VILLAGOMEZ, L LUIS BIANCHI Unavailable Unavailable VILLAGOMEZ, L LUIS BIANCHI Unavailable Unavailable VILLAGOMEZ, L LUIS BIANCHI Unavailable Unavailable VILLAGOMEZ, L LUIS BIANCHI Unavailable Unavailable VILLAGOMEZ, Jared SMITH MD Unavailable Unavailable VILLAGOMEZ, L LUIS BIANCHI Unavailable Unavailable VILLAGOMEZ, L LUIS BIANCHI Unavailable Unavailable VILLAGOMEZ, L LUIS BIANCHI Unavailable Unavailable VILLAGOMEZ, L LUIS BIANCHI Unavailable Unavailable VILLAGOMEZ, Jared SMITH MD Unavailable Unavailable VILLAGOMEZ, L LUIS BIANCHI Unavailable Unavailable VILLAGOMEZ, L LUIS BIANCHI Unavailable Unavailable VILLAGOMEZ, L LUIS BIANCHI Unavailable Unavailable VILLAGOMEZ, L LUIS BIANCHI Unavailable Unavailable VILLAGOMEZ, L LUIS BIANCHI Unavailable Unavailable VILLAGOMEZ, L LUIS BIANCHI Unavailable Unavailable VILLAGOMEZ, L LUIS BIANCHI Unavailable Unavailable VILLAGOMEZ, L LUIS BIANCHI Unavailable Unavailable Re-disclosure Warning The records that you are about to access may contain information from federally-assisted alcohol or drug abuse programs. If such information is present, then the following federally mandated warning applies: This information has been disclosed to you from records protected by federal confidentiality rules (42 CFR part 2). The federal rules prohibit you from making any further disclosure of this information unless further disclosure is expressly permitted by the written consent of the person to whom it pertains or as otherwise permitted by 42 CFR part 2. A general authorization for the release of medical or other information is NOT sufficient for this purpose. The Federal rules restrict any use of the information to criminally investigate or prosecute any alcohol or drug abuse patient.The records that you are about to access may contain highly sensitive health information, the redisclosure of which is protected by Article 27-F of the [facility] Public Health law. If you continue you may have access to information: Regarding HIV / AIDS; Provided by facilities licensed or operated by the [facility] Office of Mental Health; or Provided by the [facility] Office for People With Developmental Disabilities. If such information is present, then the following [facility] mandated warning applies: This information has been disclosed to you from confidential records which are protected by state law. State law prohibits you from making any further disclosure of this information without the specific written consent of the person to whom it pertains, or as otherwise permitted by law. Any unauthorized further disclosure in violation of state law may result in a fine or shelter sentence or both. A general authorization for the release of medical or other information is NOT sufficient authorization for further disc losure. Allergies and Adverse Reactions Type Description Substance Reaction Status Data Source(s ) Drug allergy Cymbalta duloxetine Unknown Active eCW1 ([facility]) Drug allergy Lyrica pregabalin Unknown Active eCW1 ([facility]) Drug allergy Amitriptyline HCl Amitriptyline Unknown Active eC W1 ([facility]) Drug allergy Ibuprofen Ibuprofen Unknown Active eCW1 ([facility]) Cyclobenzaprine HCl Cyclobenzaprine HCl Cyclobenzaprine HCl Unknown Active eCW1 ([facility]) IV Dye IV Dye IV Dye Anaphylaxis Active eCW1 ([facility]) NSAID's- can not take due to gastric bypass NSAID's- c an not take due to gastric bypass NSAID's- can not take due to gastric bypass Unknown Acti ve eCW1 ([facility]) IV Dye IV Dye IV Dye Anaphylaxis Active eCW1 ([facility]) NSAID's- can not take due to gastric bypass NSAID's- c an not take due to gastric bypass NSAID's- can not take due to gastric bypass Unknown Acti ve eCW1 ([facility]) IV Dye IV Dye IV Dye Anaphylaxis Active eCW1 ([facility]) NSAID's- can not take due to gastric bypass NSAID's- c an not take due to gastric bypass NSAID's- can not take due to gastric bypass Unknown Acti ve eCW1 ([facility]) Family History Family Member Name Family Member Gender Family Member Status Date o f Status Description Data Source(s) Unknown Unknown Problem MEDENT (Andres mcgee PSYCHIATRIST) Encounters Encounter Providers Location Date Indications Data Source(s ) [place] [address] [facility] [address] 07/17/2020 12:00:00 AM EST eCW1 ([facility]) Unknown [address] [facility] [address] 07/17/2020 12:00:00 AM EST eCW1 ([facility]) Outpatient Attender: ALISON GORDON 07/12/2020 06:00:00 PM [facility] Outpatient Attender: Barrera Gaytan MD Main office - [facility] 07/10/2020 08:00:00 AM EST MEDENT ([facility] EDILBERTO Ayoub) Unknown [address] [facility] [place] [address] 07/10/2020 12:00:00 AM EST eCW1 ([facility]) Outpatient Attender: ALISON GORDON 06/27/2020 06:00:00 PM [facility] Outpatient Attender: ESTEBAN GIL NP 06/22/2020 02: 20:00 PM [facility] Outpatient Attender: ALISON GORDON 06/20/2020 06:00:00 PM [facility] Unknown [address] [facility] [address] 06/14/2020 12:00:00 AM EST eCW1 ([facility]) Outpatient Attender: ALISON GORDON 06/06/2020 06:00:00 PM E [facility] Outpatient Attender: ALISON GORDON 05/30/2020 06:00:00 PM E [facility] Admission cancelled. Disregard status an d admitted date. Outpatient Attender: ALISON GORDON 05/23/2020 06:00:00 PM [facility] Outpatient [address] [facility] [address] 05/17/2020 12:00:00 AM EST eCW1 ([facility]) Outpatient Attender: ALISON GORDON 05/16/2020 06:00:00 PM [facility] Unknown [address] [facility] [address] 05/12/2020 12:00:00 AM EST [facility]CW1 [facility] Outpatient [address] [facility] [address] 05/11/2020 12:00:00 AM EST [facility]CW1 ([facility] Unknown [address] [facility] [address] 05/11/2020 12:00:00 AM EST [facility]CW1 ([facility] Outpatient [address] [facility] [address] 05/09/2020 12:00:00 AM EST eCW1 ([facility]) Unknown [address] [facility] [address] 05/04/2020 12:00:00 AM EDT eCW1 ([facility]) Outpatient Attender: ALISON GORDON 05/03/2020 06:00:00 PM E [facility] Unknown [address] [facility] [address] 04/27/2020 12:00:00 AM EDT eCW1 ([facility]) Unknown [address] [facility] [address] 04/24/2020 12:00:00 AM EDT eCW1 ([facility]) Outpatient Attender: ESTEBAN GIL NP 04/21/2020 [facility]: [facility]ORD[facility] 04/17/2020 05:00:00 PM E [facility] Unknown [address] [facility] [address] 04/13/2020 12:00:00 AM EDT eCW1 ([facility]) Outpatient Attender: ALISON GORDON 03/27/2020 06:00:00 PM E [facility] Outpatient Attender: ESTEBAN GIL NP 03/23/2020 [facility]: ALISON GORDON 03/20/2020 06:00:00 PM E [facility] Outpatient Attender: ALISON GORDON 03/06/2020 06:00:00 PM E [facility] Outpatient Attender: ALISON GORDON 02/28/2020 06:00:00 PM E [facility] Outpatient Attender: ESTEBAN GIL NP 02/24/2020 [facility]: ALISON GORDON 02/14/2020 05:59:00 PM E [facility] Outpatient Attender: ALISON GORDON 02/02/2020 06:00:00 PM E [facility] Outpatient Attender: ALISON GORDON 01/26/2020 06:00:00 PM E [facility] Unknown [address] [facility] [address] 01/24/2020 12:00:00 AM EDT eCW1 ([facility]) Outpatient Attender: ESTEBAN GIL NP 01/13/2020 01: [facility]: ALISON GORDON 01/12/2020 06:00:00 PM E [facility] Admission cancelled. Disregard status an d admitted date. Outpatient Attender: ALISON GORDON 01/05/2020 06:00:00 PM E [facility] Outpatient Attender: ALISON GORDON 12/28/2019 11:30:00 AM E [facility] Outpatient Attender: ALISON GORDON 12/22/2019 06:00:00 PM E [facility] [address] [facility] [address] 12/16/2019 12:00:00 AM EDT eCW1 ([facility]) Unknown [address] [facility] [address] 12/15/2019 12:00:00 AM EDT eCW1 ([facility]) Outpatient Attender: ALISON GORDON 12/14/2019 09:33:00 AM E [facility] Unknown [address] [facility] [address] 12/14/2019 12:00:00 AM EDT eCW1 ([facility]) Outpatient Attender: ALISON GORDON 12/08/2019 03:00:00 PM E [facility] Unknown [address] [facility] [address] 12/07/2019 12:00:00 AM EDT eCW1 ([facility]) Outpatient Attender: ESTEBAN GIL NP 12/02/2019 01: 00:00 PM [facility] Outpatient Attender: ALISON GORDON 11/22/2019 06:00:00 PM [facility] Outpatient Attender: ESTEBAN GIL NP 11/18/2019 01: 40:00 PM [facility] Outpatient Attender: ALISON GORDON 11/15/2019 05:57:00 PM [facility] [address] [facility] [address] 11/09/2019 12:00:00 AM EDT eCW1 ([facility]) Outpatient Attender: ALISON GORDON 10/28/2019 09:24:00 AM [facility] Outpatient Referrer: Cally Bull RPA 10/05 12:00:00 AM EDT - 10/21/2019 03:43:08 PM EDT Pain in left finger(s) [facility] Pain in left finger(s) Outpatient Attender: EDVIN KENT MD [id number] 10/21/2019 12:0 0:00 AM EDT Pain in left hand [facility] Pain in left hand Outpatient Attender: EDVIN KENT MD 10/14/2019 12:00:00 A M [facility] Outpatient Referrer: Nuzhat PINON 10/13/2019 05:56: 00 AM EDT [facility] [address] [address] 10/11/2019 12:00:00 AM EDT eCW1 ([facility]) Outpatient Attender: Cally Bull RPA 10/11/2019 12:00:00 AM ED[place] [address] [address] 10/07/2019 12:00:00 AM EDT eCW1 ([facility]) Outpatient Attender: ESTEBAN GIL NP 10/06/2019 10: 40:00 AM [facility] Outpatient Attender: ALISON GORDON 10/04/2019 06:30:00 PM [facility] Outpatient Attender: ALISON GORDON 09/30/2019 11:30:00 AM [facility] Outpatient Attender: EDVIN KENT MD [id number] 09/30/2019 12:00:00 AM [facility] Outpatient Attender: EDVIN KENT MD 09/29/2019 12:00:[address] [address] 09/27/2019 12:00:00 AM EDT eCW1 ([facility]) [address] [address] 09/22/2019 12:00:00 AM EDT eCW1 ([facility]) [address] [address] 09/21/2019 12:00:00 AM EDT eCW1 ([facility]) Outpatient Referrer: Cally Bull RPA 09/20/2019 12 :00:00 AM EDT Pain in left finger(s) [facility] Pain in left finger(s) Outpatient Attender: Cally Bull RPA [id number] 09/20/2019 12:00:0 [address] [address] 09/20/2019 12:00:00 AM EDT eCW1 ([facility]) [address] [address] 09/20/2019 12:00:00 AM EDT eCW1 ([facility]) [address] [place] [address] 09/20/2019 12:00:00 AM EDT eCW1 ([facility]) [address] [address] 09/15/2019 12:00:00 AM EDT eCW1 ([facility]) [address] [address] 09/09/2019 12:00:00 AM EST eCW1 ([facility]) Outpatient Attender: EDVIN KENT MD 09/09/2019 12:00:00 A M [address] [address] 09/07/2019 12:00:00 AM EST eCW1 ([facility]) [address] [address] 09/06/2019 12:00:00 AM EST eCW1 ([facility]) [address] [place] [address] 08/26/2019 12:00:00 AM EST eCW1 ([facility]) Outpatient Attender: EDVIN KENT MD 08/19/2019 12:00:00 A M [address] [address] 08/17/2019 12:00:00 AM EST eCW1 ([facility]) [address] [address] 08/09/2019 12:00:00 AM EST eCW1 ([facility]) Outpatient Attender: ESTEBAN GIL NP 08/03/2019 11: 30:00 AM EST [facility] Outpatient Attender: EDVIN KENT MD 07/21/2019 12:00:00 A M [facility] Outpatient Attender: Cally Bull RPA 07/20/2019 12:00:[address], [facility] [address] 07/15/2019 12:00:00 AM EST eCW1 ([facility]) [address] [address] 07/14/2019 12:00:00 AM EST eCW1 ([facility]) Outpatient Attender: ESTEBAN GIL NP 07/13/2019 10: 57:[address], [facility] [address] 06/21/2019 12:00:00 AM EST eCW1 ([facility]) [address] [address] 06/17/2019 12:00:00 AM EST eCW1 ([facility]) Outpatient Attender: EDVIN KENT MD 06/17/2019 12:00:[address] A M [address] [address] 06/14/2019 12:00:00 AM EST eCW1 ([facility]) Outpatient Referrer: Nuzhat SHIRLEYP-Onur 06/13/2019 09:10: 00 PM EST [facility] [address] [address] 06/10/2019 12:00:00 AM EST eCW1 ([facility]) [address] [place] [address] 06/10/2019 12:00:00 AM EST eCW1 ([facility]) [address] [address] 06/01/2019 12:00:00 AM EST eCW1 ([facility]) [address] [place] [address] 05/27/2019 12:00:00 AM EST eCW1 ([facility]) [facility] [address] [facility] [address] 05/27/2019 12:00:00 AM EST eCW1 ([facility]) Outpatient Attender: ALISON GORDON 03/09/2019 10:00:00 AM [facility] Outpatient Attender: EDVIN KENT MD [id number] 2018 12:00:00 AM EDT - 02/17/2019 01:50:06 PM EDT Pain in right hand [facility] Pain in right hand Outpatient Attender: REI ALANIZ 2018 08:46:00 AM EDT - 03/06/2019 12:00:00 AM [facility] Patient discharged. Outpatient Attender: LUIS VILLAGOMEZ MD 01/14/2019 10:00:00 AM [facility] Outpatient Attender: REI ALANIZ 2018 08:53:00 AM EDT - 02/02/2019 05:00:00 PM [facility] Patient discharged. Outpatient Attender: Dr. Geovanny Billy MD 12/15/2018 10:27:00 AM EDT - 01/01/2019 12:09:00 PM [facility] Outpatient Attender: Eneida CHINCHILLA 12/08/2018 01:30 :00 PM [facility] Emergency Attender: PAYAM STRONG 10/05 10:41:00 AM EDT - 10/21/2018 11:20:00 AM [facility] Outpatient Attender: REI ALNAIZ 2018 10:02:00 AM EDT - 10/26/2018 05:00:00 PM [facility] Emergency Attender: Srini GERARDO 03/2019 10:24:00 AM EST - 09/12/2018 11:16:00 AM [facility] Outpatient Attender: REI ALANIZ 2018 10:38:00 AM EST - 10/01/2018 02:01:00 PM [facility] Emergency Attender: NATHAN STRONG EMERGENCY ROOM-ER 08/05/2018 05:40:00 PM EST - 08/05/2018 06:36:00 PM [facility] Emergency Attender: NATHAN STRONG 10:59:00 PM EDT - 02/05/2018 11:42:00 PM [facility] Emergency Attender: PAYAM STRONG 01/04 02:36:00 PM EDT - 01/22/2018 03:12:00 PM [facility] Immunizations Vaccine Date Status Description Data Source(s) influenza, recombinant, quadrIvalent,injectable, prese rvative free 05/09/2020 04:45:00 PM EST completed eCW1 ([facility]) influenza, recombinant, quadrIvalent,injectable, prese rvative free 05/09/2020 04:45:00 PM EST completed eCW1 ([facility]) influenza, recombinant, quadrIvalent,injectable, prese rvative free 05/09/2020 04:45:00 PM EST completed eCW1 ([facility]) influenza, recombinant, quadrIvalent,injectable, prese rvative free 05/09/2020 04:45:00 PM EST completed eCW1 ([facility]) influenza, recombinant, quadrIvalent,injectable, prese rvative free 05/09/2020 04:45:00 PM EST completed eCW1 ([facility]) influenza, recombinant, quadrIvalent,injectable, prese rvative free 05/09/2020 04:45:00 PM EST completed eCW1 ([facility]) influenza, recombinant, quadrIvalent,injectable, prese rvative free 05/09/2020 04:45:00 PM EST completed eCW1 ([facility]) influenza, recombinant, quadrIvalent,injectable, prese rvative free 05/09/2020 04:45:00 PM EST completed eCW1 ([facility]) influenza, recombinant, quadrIvalent,injectable, prese rvative free 05/09/2020 04:45:00 PM EST completed eCW1 ([facility]) Medications Medication Brand Name Start Date Product Form Dose Route Admi nistrative Instructions Pharmacy Instructions Status Indications Reaction Description Data Source(s) Acetaminophen 325 MG / Hydrocodone Katharina trate 10 MG Oral Tablet Hydrocodone- Acetaminophen 10-325 MG Hydrocodone-Acetaminophen 10-325 MG 07/17/2020 12:00:0 0 AM EST 1.0 {tablet_as_needed} active Hydrocodone-Acetaminophen 10- 325 MG eCW1 ([facility]) Acetaminophen 325 MG / Hydrocodone Katharina trate 10 MG Oral Tablet Hydrocodone- Acetaminophen 10-325 MG Hydrocodone-Acetaminophen 10-325 MG 07/17/2020 12:00:0 0 AM EST 1.0 {tablet_as_needed} active Hydrocodone-Acetaminophen 10- 325 MG eCW1 ([facility]) Verapamil hydrochloride 40 MG Oral Tablet Verapamil HCL 07/10/2020 12:00:00 AM EST ORAL active MEDENT ([facility] ) Acetaminophen 325 MG / Hydrocodone Katharina trate 10 MG Oral Tablet Hydrocodone- Acetaminophen 10-325 MG Hydrocodone-Acetaminophen 10-325 MG 06/14/2020 12:00:0 0 AM EST 1.0 {tablet_as_needed} active Hydrocodone-Acetaminophen 10- 325 MG eCW1 ([facility]) Acetaminophen 325 MG / Hydrocodone Katharina trate 10 MG Oral Tablet Hydrocodone- Acetaminophen 10-325 MG Hydrocodone-Acetaminophen 10-325 MG 06/14/2020 12:00:0 0 AM EST 1.0 {tablet_as_needed} active Hydrocodone-Acetaminophen 10- 325 MG eCW1 ([facility]) Acetaminophen 325 MG / Hydrocodone Katharina trate 10 MG Oral Tablet Hydrocodone- Acetaminophen 10-325 MG Hydrocodone-Acetaminophen 10-325 MG 05/17/2020 12:00:0 0 AM EST 1.0 {tablet_as_needed} active Hydrocodone-Acetaminophen 10- 325 MG eCW1 ([facility]) Acetaminophen 325 MG / Hydrocodone Katharina trate 10 MG Oral Tablet Hydrocodone- Acetaminophen 10-325 MG Hydrocodone-Acetaminophen 10-325 MG 05/17/2020 12:00:0 0 AM EST 1.0 {tablet_as_needed} active Hydrocodone-Acetaminophen 10- 325 MG eCW1 ([facility]) Acetaminophen 325 MG / Hydrocodone Katharina trate 10 MG Oral Tablet Hydrocodone- Acetaminophen 10-325 MG Hydrocodone-Acetaminophen 10-325 MG 05/17/2020 12:00:0 0 AM EST 1.0 {tablet_as_needed} active Hydrocodone-Acetaminophen 10- 325 MG eCW1 ([facility]) Prednisone 10 MG Oral Tablet PredniSONE 10 MG PredniSONE 10 MG 05/11/2020 12:00:00 AM EST active PredniSO NE 10 MG eCW1 ([facility]) Prednisone 10 MG Oral Tablet PredniSONE 10 MG PredniSONE 10 MG 05/11/2020 12:00:00 AM EST active PredniSO NE 10 MG eCW1 ([facility]) Prednisone 10 MG Oral Tablet PredniSONE 10 MG PredniSONE 10 MG 05/11/2020 12:00:00 AM EST active PredniSO NE 10 MG eCW1 ([facility]) Prednisone 10 MG Oral Tablet PredniSONE 10 MG PredniSONE 10 MG 05/11/2020 12:00:00 AM EST active PredniSO NE 10 MG eCW1 ([facility]) Prednisone 10 MG Oral Tablet PredniSONE 10 MG PredniSONE 10 MG 05/11/2020 12:00:00 AM EST active PredniSO NE 10 MG eCW1 ([facility]) Prednisone 10 MG Oral Tablet PredniSONE 10 MG PredniSONE 10 MG 05/11/2020 12:00:00 AM EST active PredniSO NE 10 MG eCW1 ([facility]) Prednisone 10 MG Oral Tablet PredniSONE 10 MG PredniSONE 10 MG 05/11/2020 12:00:00 AM EST active PredniSO NE 10 MG eCW1 ([facility]) Nystatin 685811 UNT/ML Topical Cream Nystatin 006559 U NIT/GM Nystatin 103807 UNIT/GM 05/09/2020 12:00:00 AM EST 1.0 {application} active Nystatin 224652 UNIT/GM eCW1 ([facility]) Nystatin 510561 UNT/ML Topical Cream Nystatin 976332 U NIT/GM Nystatin 835395 UNIT/GM 05/09/2020 12:00:00 AM EST 1.0 {application} active Nystatin 720002 UNIT/GM eCW1 ([facility]) Nystatin 172218 UNT/ML Topical Cream Nystatin 601125 U NIT/GM Nystatin 516525 UNIT/GM 05/09/2020 12:00:00 AM EST 1.0 {application} active Nystatin 400020 UNIT/GM eCW1 ([facility]) Nystatin 211303 UNT/ML Topical Cream Nystatin 157538 U NIT/GM Nystatin 401936 UNIT/GM 05/09/2020 12:00:00 AM EST 1.0 {application} active Nystatin 885427 UNIT/GM eCW1 ([facility]) Nystatin 337547 UNT/ML Topical Cream Nystatin 184361 U NIT/GM Nystatin 622010 UNIT/GM 05/09/2020 12:00:00 AM EST 1.0 {application} active Nystatin 453305 UNIT/GM eCW1 ([facility]) Nystatin 262059 UNT/ML Topical Cream Nystatin 894765 U NIT/GM Nystatin 992652 UNIT/GM 05/09/2020 12:00:00 AM EST 1.0 {application} active Nystatin 248160 UNIT/GM eCW1 ([facility]) Nystatin 600413 UNT/ML Topical Cream Nystatin 076723 U NIT/GM Nystatin 897380 UNIT/GM 05/09/2020 12:00:00 AM EST 1.0 {application} active Nystatin 191578 UNIT/GM eCW1 ([facility]) Nystatin 882349 UNT/ML Topical Cream Nystatin 819464 U NIT/GM Nystatin 698673 UNIT/GM 05/09/2020 12:00:00 AM EST 1.0 {application} active Nystatin 735880 UNIT/GM eCW1 ([facility]) Nystatin 301733 UNT/ML Topical Cream Nystatin 042032 U NIT/GM Nystatin 939723 UNIT/GM 05/09/2020 12:00:00 AM EST 1.0 {application} active Nystatin 329273 UNIT/GM eCW1 ([facility]) Acetaminophen 325 MG / Hydrocodone Katharina trate 10 MG Oral Tablet Hydrocodone- Acetaminophen 10-325 MG Hydrocodone-Acetaminophen 10-325 MG 04/17/2020 12:00:0 0 AM EDT 1.0 {tablet_as_needed} active Hydrocodone-Acetaminophen 10- 325 MG eCW1 ([facility]) Acetaminophen 325 MG / Hydrocodone Katharina trate 10 MG Oral Tablet Hydrocodone- Acetaminophen 10-325 MG Hydrocodone-Acetaminophen 10-325 MG 04/17/2020 12:00:0 0 AM EDT 1.0 {tablet_as_needed} active Hydrocodone-Acetaminophen 10- 325 MG eCW1 ([facility]) Acetaminophen 325 MG / Hydrocodone Katharina trate 10 MG Oral Tablet Hydrocodone- Acetaminophen 10-325 MG Hydrocodone-Acetaminophen 10-325 MG 04/17/2020 12:00:0 0 AM EDT 1.0 {tablet_as_needed} active Hydrocodone-Acetaminophen 10- 325 MG eCW1 ([facility]) Acetaminophen 325 MG / Hydrocodone Katharina trate 10 MG Oral Tablet Hydrocodone- Acetaminophen 10-325 MG Hydrocodone-Acetaminophen 10-325 MG 04/17/2020 12:00:0 0 AM EDT 1.0 {tablet_as_needed} active Hydrocodone-Acetaminophen 10- 325 MG eCW1 ([facility]) Acetaminophen 325 MG / Hydrocodone Katharina trate 10 MG Oral Tablet Hydrocodone- Acetaminophen 10-325 MG Hydrocodone-Acetaminophen 10-325 MG 04/17/2020 12:00:0 0 AM EDT 1.0 {tablet_as_needed} active Hydrocodone-Acetaminophen 10- 325 MG eCW1 ([facility]) Acetaminophen 325 MG / Hydrocodone Katharina trate 10 MG Oral Tablet Hydrocodone- Acetaminophen 10-325 MG Hydrocodone-Acetaminophen 10-325 MG 04/17/2020 12:00:0 0 AM EDT 1.0 {tablet_as_needed} active Hydrocodone-Acetaminophen 10- 325 MG eCW1 ([facility]) Acetaminophen 325 MG / Hydrocodone Katharina trate 10 MG Oral Tablet Hydrocodone- Acetaminophen 10-325 MG Hydrocodone-Acetaminophen 10-325 MG 04/17/2020 12:00:0 0 AM EDT 1.0 {tablet_as_needed} active Hydrocodone-Acetaminophen 10- 325 MG eCW1 ([facility]) Acetaminophen 325 MG / Hydrocodone Katharina trate 10 MG Oral Tablet Hydrocodone- Acetaminophen 10-325 MG Hydrocodone-Acetaminophen 10-325 MG 04/17/2020 12:00:0 0 AM EDT 1.0 {tablet_as_needed} active Hydrocodone-Acetaminophen 10- 325 MG eCW1 ([facility]) Acetaminophen 325 MG / Hydrocodone Katharina trate 10 MG Oral Tablet Hydrocodone- Acetaminophen 10-325 MG Hydrocodone-Acetaminophen 10-325 MG 04/17/2020 12:00:0 0 AM EDT 1.0 {tablet_as_needed} active Hydrocodone-Acetaminophen 10- 325 MG eCW1 ([facility]) Acetaminophen 325 MG / Hydrocodone Katharina trate 10 MG Oral Tablet Hydrocodone- Acetaminophen 10-325 MG Hydrocodone-Acetaminophen 10-325 MG 04/17/2020 12:00:0 0 AM EDT 1.0 {tablet_as_needed} active Hydrocodone-Acetaminophen 10- 325 MG eCW1 ([facility]) Acetaminophen 325 MG / Hydrocodone Katharina trate 10 MG Oral Tablet Hydrocodone- Acetaminophen 10-325 MG Hydrocodone-Acetaminophen 10-325 MG 04/17/2020 12:00:0 0 AM EDT 1.0 {tablet_as_needed} active Hydrocodone-Acetaminophen 10- 325 MG eCW1 ([facility]) Acetaminophen 325 MG / Hydrocodone Katharina trate 10 MG Oral Tablet Hydrocodone- Acetaminophen 10-325 MG Hydrocodone-Acetaminophen 10-325 MG 01/13/2020 12:00:0 0 AM EDT 1.0 {tablet_as_needed} active Hydrocodone-Acetaminophen 10- 325 MG eCW1 ([facility]) Acetaminophen 325 MG / Hydrocodone Katharina trate 10 MG Oral Tablet Hydrocodone- Acetaminophen 10-325 MG Hydrocodone-Acetaminophen 10-325 MG 12/14/2019 12:00:0 0 AM EDT 1.0 {tablet_as_needed} active Hydrocodone-Acetaminophen 10- 325 MG eCW1 ([facility]) Acetaminophen 325 MG / Hydrocodone Katharina trate 10 MG Oral Tablet Hydrocodone- Acetaminophen 10-325 MG Hydrocodone-Acetaminophen 10-325 MG 12/14/2019 12:00:0 0 AM EDT 1.0 {tablet_as_needed} active Hydrocodone-Acetaminophen 10- 325 MG eCW1 ([facility]) Fluconazole 150 MG Oral Tablet Fluconazole 150 MG 12/07/2019 12:00: 00 AM EDT 1.0 {tablet} active Fluconazole 150 MG eCW1 ([facility]) Fluconazole 150 MG Oral Tablet Fluconazole 150 MG 12/07/2019 12:00: 00 AM EDT 1.0 {tablet} active Fluconazole 150 MG eCW1 ([facility]) Fluconazole 150 MG Oral Tablet Fluconazole 150 MG 12/07/2019 12:00: 00 AM EDT 1.0 {tablet} active Fluconazole 150 MG eCW1 ([facility]) Fluconazole 150 MG Oral Tablet Fluconazole 150 MG 12/07/2019 12:00: 00 AM EDT 1.0 {tablet} active Fluconazole 150 MG eCW1 ([facility]) Fluconazole 150 MG Oral Tablet Fluconazole 150 MG 12/07/2019 12:00: 00 AM EDT 1.0 {tablet} active Fluconazole 150 MG eCW1 ([facility]) Fluconazole 150 MG Oral Tablet Fluconazole 150 MG 12/07/2019 12:00: 00 AM EDT 1.0 {tablet} active Fluconazole 150 MG eCW1 ([facility]) Acetaminophen 325 MG / Hydrocodone Katharina trate 10 MG Oral Tablet Hydrocodone- Acetaminophen 10-325 MG Hydrocodone-Acetaminophen 10-325 MG 11/09/2019 12:00:0 0 AM EDT active 1 tablet as neede d eCW1 ([facility]) Omeprazole 40 MG Delayed Release Oral Capsule Omeprazole 40 MG 10/11/2019 12:00:00 AM EDT active Omeprazo le 40 MG eCW1 ([facility]) Omeprazole 40 MG Delayed Release Oral Capsule Omeprazole 40 MG 10/11/2019 12:00:00 AM EDT active Omeprazo le 40 MG eCW1 ([facility]) Omeprazole 40 MG Delayed Release Oral Capsule Omeprazole 40 MG 10/11/2019 12:00:00 AM EDT active Omeprazo le 40 MG eCW1 ([facility]) Omeprazole 40 MG Delayed Release Oral Capsule Omeprazole 40 MG 10/11/2019 12:00:00 AM EDT active Omeprazo le 40 MG eCW1 ([facility]) Omeprazole 40 MG Delayed Release Oral Capsule Omeprazole 40 MG 10/11/2019 12:00:00 AM EDT active Omeprazo le 40 MG eCW1 ([facility]) Omeprazole 40 MG Delayed Release Oral Capsule Omeprazole 40 MG 10/11/2019 12:00:00 AM EDT active Omeprazo le 40 MG eCW1 ([facility]) Omeprazole 40 MG Delayed Release Oral Capsule Omeprazole 40 MG 10/11/2019 12:00:00 AM EDT active Omeprazo le 40 MG eCW1 ([facility]) Omeprazole 40 MG Delayed Release Oral Capsule Omeprazole 40 MG 10/11/2019 12:00:00 AM EDT active Omeprazo le 40 MG eCW1 ([facility]) Omeprazole 40 MG Delayed Release Oral Capsule Omeprazole 40 MG 10/11/2019 12:00:00 AM EDT active Omeprazo le 40 MG eCW1 ([facility]) Omeprazole 40 MG Delayed Release Oral Capsule Omeprazole 40 MG 10/11/2019 12:00:00 AM EDT active Omeprazo le 40 MG eCW1 ([facility]) Omeprazole 40 MG Delayed Release Oral Capsule Omeprazole 40 MG 10/11/2019 12:00:00 AM EDT active Omeprazo le 40 MG eCW1 ([facility]) Omeprazole 40 MG Delayed Release Oral Capsule Omeprazole 40 MG 10/11/2019 12:00:00 AM EDT active Omeprazo le 40 MG eCW1 ([facility]) Omeprazole 40 MG Delayed Release Oral Capsule Omeprazole 40 MG 10/11/2019 12:00:00 AM EDT active Omeprazo le 40 MG eCW1 ([facility]) Omeprazole 40 MG Delayed Release Oral Capsule Omeprazole 40 MG 10/11/2019 12:00:00 AM EDT active Omeprazo le 40 MG eCW1 ([facility]) Omeprazole 40 MG Delayed Release Oral Capsule Omeprazole 40 MG 10/11/2019 12:00:00 AM EDT active Omeprazo le 40 MG eCW1 ([facility]) Omeprazole 40 MG Delayed Release Oral Capsule Omeprazole 40 MG 10/11/2019 12:00:00 AM EDT active Omeprazo le 40 MG eCW1 ([facility]) Albuterol Sulfate HFA 108 (90 Base) MCG/ ACT Inhalation Aerosol Solution (PROVENTIL HFA;VENTOLIN HFA) 4389-9856-77 09/28/2019 12:00:00 AM EDT active [facility] tizanidine 2 MG Oral Tablet tiZANidine HCl 2 MG Oral T ablet (ZANAFLEX) tiZANidine HCl 2 MG Oral Tablet (ZANAFLEX) 09/27/2019 12:00:00 AM EDT active [facility] Doxepin Hydrochloride 25 MG Oral Capsule Doxepin HCl 25 MG Oral Capsule (SINEQUAN) Doxepin HCl 25 MG Oral Capsule (SINEQUAN) 09/22/2019 12:00:0 0 AM EDT active TAKE 1 CAPSULE B Y MOUTH ONCE DAILY AT BEDTIME FOR 30 DAYS [facility] Propranolol Hydrochloride 10 MG Oral Tab let Propranolol HCl 10 MG Oral Tablet (INDERAL) Propranolol HCl 10 MG Oral Tablet (INDERAL) 09/20/2019 12:00:[address] [facility] Acetaminophen 325 MG / Hydrocodone Katharina trate 10 MG Oral Tablet Hydrocodone- Acetaminophen 10-325 MG Hydrocodone-Acetaminophen 10-325 MG 09/15/2019 12:00:0 0 AM EDT active 1 tablet as neede d eCW1 ([facility]) Nystatin 995604 UNT/ML Topical Cream Nystatin 886406 U NIT/GM Nystatin 708924 UNIT/GM 09/07/2019 12:00:00 AM EST 1.0 {application} active Nystatin 253411 UNIT/GM eCW1 ([facility]) tizanidine 4 MG Oral Tablet Tizanidine HCl 4 MG Tizanidine H Cl 4 MG 09/07/2019 12:00:00 AM EST 1.0 {tablet_as_needed} suspended Tizanidine HCl 4 MG eCW1 ([facility]) tizanidine 4 MG Oral Tablet Tizanidine HCl 4 MG Tizanidine H Cl 4 MG 09/07/2019 12:00:00 AM EST 1.0 {tablet_as_needed} suspended Tizanidine HCl 4 MG eCW1 ([facility]) Nystatin 617498 UNT/ML Topical Cream Nystatin 319663 U NIT/GM Nystatin 277970 UNIT/GM 09/07/2019 12:00:00 AM EST active 1 application eCW1 ([facility]) tizanidine 4 MG Oral Tablet Tizanidine HCl 4 MG Tizanidine H Cl 4 MG 09/07/2019 12:00:00 AM EST 1.0 {tablet_as_needed} suspended Tizanidine HCl 4 MG eCW1 ([facility]) tizanidine 4 MG Oral Tablet Tizanidine HCl 4 MG Tizanidine H Cl 4 MG 09/07/2019 12:00:00 AM EST 1.0 {tablet_as_needed} suspended Tizanidine HCl 4 MG eCW1 ([facility]) Nystatin 454998 UNT/ML Topical Cream Nystatin 336005 U NIT/GM Nystatin 880114 UNIT/GM 09/07/2019 12:00:00 AM EST 1.0 {application} active Nystatin 298496 UNIT/GM eCW1 ([facility]) Nystatin 561883 UNT/ML Topical Cream Nystatin 974824 U NIT/GM Nystatin 602603 UNIT/GM 09/07/2019 12:00:00 AM EST 1.0 {application} active Nystatin 547173 UNIT/GM eCW1 ([facility]) tizanidine 2 MG Oral Tablet Tizanidine HCl 2 MG Tizanidine H Cl 2 MG 09/07/2019 12:00:00 AM EST 1.0 {tablet_as_needed} active Tizanidine HCl 2 MG eCW1 ([facility]) tizanidine 4 MG Oral Tablet Tizanidine HCl 4 MG Tizanidine H Cl 4 MG 09/07/2019 12:00:00 AM EST 1.0 {tablet_as_needed} active Tizanidine HCl 4 MG eCW1 ([facility]) tizanidine 4 MG Oral Tablet Tizanidine HCl 4 MG Tizanidine H Cl 4 MG 09/07/2019 12:00:00 AM EST 1.0 {tablet_as_needed} suspended Tizanidine HCl 4 MG eCW1 ([facility]) Nystatin 338221 UNT/ML Topical Cream Nystatin 930872 U NIT/GM Nystatin 981402 UNIT/GM 09/07/2019 12:00:00 AM EST 1.0 {application} active Nystatin 784489 UNIT/GM eCW1 ([facility]) tizanidine 4 MG Oral Tablet Tizanidine HCl 4 MG Tizanidine H Cl 4 MG 09/07/2019 12:00:00 AM EST 1.0 {tablet_as_needed} active Tizanidine HCl 4 MG eCW1 ([facility]) tizanidine 2 MG Oral Tablet Tizanidine HCl 2 MG Tizanidine H Cl 2 MG 09/07/2019 12:00:00 AM EST 1.0 {tablet_as_needed} active Tizanidine HCl 2 MG eCW1 ([facility]) tizanidine 2 MG Oral Tablet Tizanidine HCl 2 MG Tizanidine H Cl 2 MG 09/07/2019 12:00:00 AM EST active 1 tablet as needed eCW1 ([facility]) tizanidine 4 MG Oral Tablet Tizanidine HCl 4 MG Tizanidine H Cl 4 MG 09/07/2019 12:00:00 AM EST 1.0 {tablet_as_needed} active Tizanidine HCl 4 MG eCW1 ([facility]) tizanidine 2 MG Oral Tablet Tizanidine HCl 2 MG Tizanidine H Cl 2 MG 09/07/2019 12:00:00 AM EST 1.0 {tablet_as_needed} active Tizanidine HCl 2 MG eCW1 ([facility])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 Part B [id number] Ais Attn: Workers Compensation CLAIM: [id number] Self CLAIM: [id number] MEDICAID [id number] S [id number] MEDICARE [id number] SP [id number] [facility] [id number] S VYM [id number] Blue Shield Other Commercial VYM [id number] Self [id number] [id number] Medicare Medicare Primary [id number] Self [id number] Medicaid Medigap Part B [id number] 16D Problems, Conditions, and Diagnoses Code Display Name Description Problem Type Effective Dates Data Source(s) 02991507 Migraine Migraine Problem 07/10/2020 12:00:00 AM PING CRAWLEY ([facility], ) G43.409 [id number] Hemiplegic migraine without status migrainosus, not intractable Problem 05/09/2020 12:00:00 AM EST eCW1 ([facility]) M54.5 [id number] Low back pain Problem 09/07/2019 12:00:00 AM EST eCW1 ([facility]) M54.5 [id number] Low back pain Problem 09/07/2019 12:00:00 AM EST eCW1 ([facility]) G47.00 Insomnia, unspecified INSOMNIA, UNSPECIFIED Diagnosis 07/12/2020 06:00:00 PM [facility] F41.1 Generalized anxiety disorder GENERALIZED ANXIETY DISOR MEMO Diagnosis 07/12/2020 06:00:00 PM [facility] F43.10 Post-traumatic stress disorder, unspecif ied POST-TRAUMATIC STRESS DISORDER, UNSPECIFIED Diagnosis 07/12/2020 06:00:00 PM [facility] F10.11 ALCOHOL ABUSE, IN REMISSION ALCOHOL ABUSE, IN REMISSIO N Diagnosis 03/23/2020 01:20:00 PM [facility] F41.9 Anxiety disorder, unspecified ANXIETY DISORDER, UNSPEC IFIED Diagnosis 03/23/2020 01:20:00 PM [facility] F10.10 Alcohol abuse, uncomplicated ALCOHOL ABUSE, UNCOMPLICA GEENA Diagnosis 02/24/2020 01:00:00 PM [facility] F33.1 Major depressive disorder, recurrent, mo derate MAJOR DEPRESSIVE DISORDER, RECURRENT, MODERATE Diagnosis 01/13/2020 01:40:00 PM [facility] M79.645 Pain in left finger(s) Pain in left finger(s) Diagnosi s 10/21/2019 07:57:41 AM EDT [facility] M79.642 Pain in left hand Pain in left hand Diagnosis 10/20 07:41:14 AM EDT [facility] Surgeries/Procedures Procedure Description Date Indications Data Source(s) Immunization: Flublok Quadrivalent (18 years & older) 0.5mL IM (Influenza) 05/09/2020 12:00:00 AM EST eCW1 ([facility]) Office Visit, Est Pt., Level 4 PC 09/07/2019 12:00:00 AM EST eCW1 ([facility]) Office Visit, Est Pt., Level 3 FC 09/07/2019 12:00:00 AM EST eCW1 ([facility]) Results ID Date Data Source [id number] 10/26/2019 03:10:15 PM EDT [facility] Name Value Range Interpretation Code Description Data Katharine rce(s) Supporting Document(s) Progress Note [facility] [id number] lbm [file] [id number] ID Date Data Source [id number] 10/21/2019 09:39:38 AM EDT [facility] XR HAND 3 OR MORE VIEWS [id number] RESUL TInterpreted by:Edvin Kent, MDClinical History: 49-year-old female with left hand pain fractured distal fifth metacarpalViews: 4 views of the left hand were obtainedIndications: Left hand pain 49-year-old femaleFindings: All 4 views reveal a healing minimally displaced distal fifth metacarpal fracture with extension into the MCP joint, no further displacement from her last set of x-raysImpression: Healing left fifth distal metacarpal fractureThis document has been electronically signed by Edvin Kent MD on 10/21/2019 9:37 AM Name Value Range Interpretation Code Description Data Katharine rce(s) Supporting Document(s) ID Date Data Source [id number] 09/30/2019 12:03:07 PM EDT [facility] Name Value Range Interpretation Code Description Data Katharine rce(s) Supporting Document(s) Progress Note [facility] [id number] lbm [file] [id number] ID Date Data Source [id number] 09/21/2019 11:29:59 AM EDT [facility] XR HAND 3 OR MORE VIEWS [id number] RESUL TInterpreted by:JIMENEZ Jaimelinical history: Left hand pain.Views: 4 views left hand.Indication: Check for sources of pain at left hand.Findings: 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 Healing is advanced. Adjacent metacarpals appear uninjured. MCP and IP joints are well preserved in all digits. No obvious osseous injury to the phalanges of all 5 digits.Impression: Healed fracture left fifth metacarpal neck with otherwise normal-appearing leftThis document has been electronically signed by Mike Degroot MD on 09/21/2019 11:27 AM Name Value Range Interpretation Code Description Data Katharine rce(s) Supporting Document(s) ID Date Data Source [id number] 09/20/2019 12:15:20 PM EDT [facility] Name Value Range Interpretation Code Description Data Katharine rce(s) Supporting Document(s) Progress Note [facility] [id number] lbm [file] [id number] ID Date Data Source Basic Metabolic Profile (BMP) 06/10/2019 12:00:00 AM EST eCW 1 ([facility]) Name Value Range Interpretation Code Description Data Katharine rce(s) Supporting Document(s) 0.83 0.55-1.30 CREATININE FOR GFR eCW1 ([facility]) 11 7-18 BLOOD UREA NITROGEN eCW1 ([facility]) 85 70-100 GLUCOSE, FASTING eCW1 ([facility]) > 60.0 >58 GLOMERULAR FILTRATION RATE eCW 1 ([facility]) 141 136-145 SODIUM LEVEL eCW1 ([facility]) 5.3 3.5-5.1 POTASSIUM SERUM eCW1 ([facility]) 9.0 8.5-10.1 CALCIUM LEVEL eCW1 ([facility]) 109 98-107 CHLORIDE LEVEL eCW1 ([facility]) 27 21-32 CARBON DIOXIDE LEVEL eCW1 ([facility]) Procedure Social History Code Duration Value Status Description Data Source(s ) Smoking 07/17/2020 12:00:00 AM EST Never Smoker completed Never S moker eCW1 ([facility]) Smoking 07/17/2020 12:00:00 AM EST Never Smoker completed Never S moker eCW1 ([facility]) Smoking 05/17/2020 12:00:00 AM EST Never Smoker completed Never S moker eCW1 ([facility]) Smoking 05/17/2020 12:00:00 AM EST Never Smoker completed Never S moker eCW1 ([facility]) Smoking 05/17/2020 12:00:00 AM EST Never Smoker completed Never S moker eCW1 ([facility]) Smoking 05/17/2020 12:00:00 AM EST Never Smoker completed Never S moker eCW1 ([facility]) Smoking 05/17/2020 12:00:00 AM EST Never Smoker completed Never S moker eCW1 ([facility]) Smoking 05/11/2020 12:00:00 AM EST Never Smoker completed Never S moker eCW1 ([facility]) Smoking 05/11/2020 12:00:00 AM EST Never Smoker completed Never S moker eCW1 ([facility]) Alcohol intake 10/26/2019 12:00:00 AM EDT Current drinker of al cohol (finding) completed Current drinker of alcohol (finding) [facility] Smoking 10/26/2019 12:00:00 AM EDT Never smoker completed Never s [facility] Smoking 10/11/2019 12:00:00 AM EDT Never Smoker completed Never S moker eCW1 ([facility]) Smoking 10/11/2019 12:00:00 AM EDT Never Smoker completed Never S moker eCW1 ([facility]) Smoking 10/11/2019 12:00:00 AM EDT Never Smoker completed Never S moker eCW1 ([facility]) Smoking 10/11/2019 12:00:00 AM EDT Never Smoker completed Never S moker eCW1 ([facility]) Smoking 10/11/2019 12:00:00 AM EDT Never Smoker completed Never S moker eCW1 ([facility]) Smoking 10/11/2019 12:00:00 AM EDT Never Smoker completed Never S moker eCW1 ([facility]) Smoking 10/11/2019 12:00:00 AM EDT Never Smoker completed Never S moker eCW1 ([facility]) Alcohol intake 09/20/2019 12:00:00 AM EDT Current drinker of al cohol (finding) completed Current drinker of alcohol (finding) [facility] Smoking 09/20/2019 12:00:00 AM EDT Never smoker completed Never s [facility] Vital Signs ID Date Data Source UNK Name Value Range Interpretation Code Description Data Source(s) Diastolic blood pressure 88 mm[Hg] 88 mm[Hg] eCW1 ([facility]) Systolic blood pressure 123 mm[Hg] 123 mm[Hg] e CW1 ([facility]) Body temperature 98.1 [degF] 98.1 [degF] eCW1 ( [facility]) Respiratory rate 18 /min 18 /min eCW1 ([facility]) Heart rate 76 /min 76 /min eCW1 ([facility]) Body mass index (BMI) [Ratio] 38.97 kg/m2 38.97 kg/m2 eCW1 ([facility]) Body height 63 [in_i] 63 [in_i] eCW1 ([facility]) Body weight [lb_av] eCW1 ([facility]) [place] body weight 120 [lb_av] 120 [lb_av] MEDEN T ([facility], ) Body mass index (BMI) [Ratio] 36.0 kg/m2 36.0 k g/m2 MEDENT ([facility]) Body weight 210.00 [lb_av] 210.00 [lb_av] MEDEN T ([facility], ) Body height 64 [in_i] 64 [in_i] MEDENT ([facility]) 5'4" Respiratory rate 12 /min 12 /min MEDENT ( [facility]) Diastolic blood pressure 67 mm[Hg] 67 mm[Hg] eCW1 ([facility]) Systolic blood pressure 99 mm[Hg] 99 mm[Hg] e CW1 ([facility]) Body temperature 98.3 [degF] 98.3 [degF] eCW1 ( [facility]) Respiratory rate 18 /min 18 /min eCW1 ([facility]) Heart rate 83 /min 83 /min eCW1 ([facility]) Body mass index (BMI) [Ratio] 38.08 kg/m2 38.08 kg/m2 eCW1 ([facility]) Body height 63 [in_i] 63 [in_i] eCW1 ([facility]) Body weight [lb_av] eCW1 ([facility]) Diastolic blood pressure 76 mm[Hg] 76 mm[Hg] eCW1 ([facility]) Systolic blood pressure 110 mm[Hg] 110 mm[Hg] e CW1 ([facility]) Body temperature 97.9 [degF] 97.9 [degF] eCW1 ( [facility]) Respiratory rate 18 /min 18 /min eCW1 ([facility]) Heart rate 72 /min 72 /min eCW1 ([facility]) Body mass index (BMI) [Ratio] 38.08 kg/m2 38.08 kg/m2 eCW1 ([facility]) Body height 63 [in_i] 63 [in_i] eCW1 ([facility]) Body weight 215 [lb_av] 215 [lb_av] eCW1 ([facility]) Diastolic blood pressure 85 mm[Hg] 85 mm[Hg] eCW1 ([facility]) Systolic blood pressure 131 mm[Hg] 131 mm[Hg] e CW1 ([facility]) Body temperature 97.8 [degF] 97.8 [degF] eCW1 ( [facility]) Respiratory rate 18 /min 18 /min eCW1 ([facility]) Heart rate 72 /min 72 /min eCW1 ([facility]) Body mass index (BMI) [Ratio] 38.08 kg/m2 38.08 kg/m2 eCW1 ([facility]) Body height 63 [in_i] 63 [in_i] eCW1 ([facility]) Body weight 215 [lb_av] 215 [lb_av] eCW1 ([facility]) Diastolic blood pressure 80 mm[Hg] 80 mm[Hg] eCW1 ([facility]) Systolic blood pressure 100 mm[Hg] 100 mm[Hg] e CW1 ([facility]) Body temperature 97.8 [degF] 97.8 [degF] eCW1 ( [facility]) Respiratory rate 18 /min 18 /min eCW1 ([facility]) Heart rate 60 /min 60 /min eCW1 ([facility]) Body mass index (BMI) [Ratio] 37.73 kg/m2 37.73 kg/m2 eCW1 ([facility]) Body height 63 [in_us] 63 [in_us] eCW1 ([facility]) Body weight Measured 213 [lb_av] 213 [lb_av] eC W1 ([facility]) Diastolic blood pressure 79 mm[Hg] 79 mm[Hg] eCW1 ([facility]) Systolic blood pressure 110 mm[Hg] 110 mm[Hg] e CW1 ([facility]) Body temperature 98 [degF] 98 [degF] eCW1 ([facility]) Respiratory rate 18 /min 18 /min eCW1 ([facility]) Heart rate 64 /min 64 /min eCW1 ([facility]) Body mass index (BMI) [Ratio] 37.73 kg/m2 37.73 kg/m2 eCW1 ([facility]) Body height 63 [in_us] 63 [in_us] eCW1 ([facility]) Body weight Measured 213 [lb_av] 213 [lb_av] eC W1 ([facility]) Diastolic blood pressure 69 mm[Hg] 69 mm[Hg] eCW1 ([facility]) Systolic blood pressure 117 mm[Hg] 117 mm[Hg] e CW1 ([facility]) Body temperature 98.7 [degF] 98.7 [degF] eCW1 ( [facility]) Respiratory rate 18 /min 18 /min eCW1 ([facility]) Heart rate 66 /min 66 /min eCW1 ([facility]) Body mass index (BMI) [Ratio] 37.55 kg/m2 37.55 kg/m2 eCW1 ([facility]) Body height 63 [in_us] 63 [in_us] eCW1 ([facility]) Body weight Measured 212 [lb_av] 212 [lb_av] eC W1 ([facility]) ID Date Data Source [id number] 09/20/2019 12:15:20 PM T [facility] Name Value Range Interpretation Code Description Data Source(s) WEIGHT RECORDED 220 lb 220 lb [facility] Body height Measured 64 in 64 in [facility] Patient Treatment Plan of Care Planned Activity Planned Date Details Description Data Source (s) Acetaminophen 325 MG / Hydrocodone Bitartrate 10 MG Or al Tablet 07/17/2020 12:00:00 AM EST eCW1 ([facility]) Acetaminophen 325 MG / Hydrocodone Bitartrate 10 MG Or al Tablet 07/17/2020 12:00:00 AM EST eCW1 ([facility]) Acetaminophen 325 MG / Hydrocodone Bitartrate 10 MG Or al Tablet 06/14/2020 12:00:00 AM EST eCW1 ([facility]) Acetaminophen 325 MG / Hydrocodone Bitartrate 10 MG Or al Tablet 06/14/2020 12:00:00 AM EST eCW1 ([facility]) Acetaminophen 325 MG / Hydrocodone Bitartrate 10 MG Or al Tablet 05/17/2020 12:00:00 AM EST eCW1 ([facility]) Acetaminophen 325 MG / Hydrocodone Bitartrate 10 MG Or al Tablet 05/17/2020 12:00:00 AM EST eCW1 ([facility]) Acetaminophen 325 MG / Hydrocodone Bitartrate 10 MG Or al Tablet 05/17/2020 12:00:00 AM EST eCW1 ([facility]) Prednisone 10 MG Oral Tablet 05/11/2020 12:00:00 AM EST eCW1 ([facility]) Prednisone 10 MG Oral Tablet 05/11/2020 12:00:00 AM EST eCW1 ([facility]) Acetaminophen 325 MG / Hydrocodone Bitartrate 10 MG Or al Tablet 04/17/2020 12:00:00 AM EDT eCW1 ([facility]) Acetaminophen 325 MG / Hydrocodone Bitartrate 10 MG Or al Tablet 04/17/2020 12:00:00 AM EDT eCW1 ([facility]) Acetaminophen 325 MG / Hydrocodone Bitartrate 10 MG Or al Tablet 01/13/2020 12:00:00 AM EDT eCW1 ([facility]) Acetaminophen 325 MG / Hydrocodone Bitartrate 10 MG Or al Tablet 12/14/2019 12:00:00 AM EDT eCW1 ([facility]) Acetaminophen 325 MG / Hydrocodone Bitartrate 10 MG Or al Tablet 12/14/2019 12:00:00 AM EDT eCW1 ([facility]) Fluconazole 150 MG Oral Tablet 12/07/2019 12:00:00 AM EDT eCW1 ([facility]) Fluconazole 150 MG Oral Tablet 12/07/2019 12:00:00 AM EDT eCW1 ([facility]) Fluconazole 150 MG Oral Tablet 12/07/2019 12:00:00 AM EDT eCW1 ([facility]) Fluconazole 150 MG Oral Tablet 12/07/2019 12:00:00 AM EDT eCW1 ([facility]) Fluconazole 150 MG Oral Tablet 12/07/2019 12:00:00 AM EDT eCW1 ([facility]) Fluconazole 150 MG Oral Tablet 12/07/2019 12:00:00 AM EDT eCW1 ([facility]) Acetaminophen 325 MG / Hydrocodone Bitartrate 10 MG Or al Tablet 11/09/2019 12:00:00 AM EDT eCW1 ([facility]) Omeprazole 40 MG Delayed Release Oral Capsule 10/11/2019 12:00:00 A M EDT eCW1 ([facility]) Omeprazole 40 MG Delayed Release Oral Capsule 10/11/2019 12:00:00 A M EDT eCW1 ([facility]) Omeprazole 40 MG Delayed Release Oral Capsule 10/11/2019 12:00:00 A M EDT eCW1 ([facility]) Omeprazole 40 MG Delayed Release Oral Capsule 10/11/2019 12:00:00 A M EDT eCW1 ([facility]) Omeprazole 40 MG Delayed Release Oral Capsule 10/11/2019 12:00:00 A M EDT eCW1 ([facility]) Omeprazole 40 MG Delayed Release Oral Capsule 10/11/2019 12:00:00 A M EDT eCW1 ([facility]) Omeprazole 40 MG Delayed Release Oral Capsule 10/11/2019 12:00:00 A M EDT eCW1 ([facility]) Albuterol Sulfate HFA 108 (90 Base) MCG/ ACT Inhalation Aerosol Solution (PROVENTIL HFA;VENTOLIN HFA) 09/28/2019 12:00:00 AM [facility] tizanidine 2 MG Oral Tablet 09/27/2019 12:00:00 AM [facility] Doxepin Hydrochloride 25 MG Oral Capsule 09/22/2019 12:00:00 AM [facility] Propranolol Hydrochloride 10 MG Oral Tablet 09/20/2019 12:00:00 AM [facility] Acetaminophen 325 MG / Hydrocodone Bitartrate 10 MG Or al Tablet 09/15/2019 12:00:00 AM ED eCW1 ([facility]) Potassium Chloride 10 MEQ Extended Release Oral Tablet 09/07/2019 12:00:00 AM [facility] tizanidine 2 MG Oral Tablet 09/07/2019 12:00:00 AM EST eCW1 ([facility]) Nystatin [id number] UNT/ML Topical Cream 09/07/2019 12:00:00 AM EST eCW1 ([facility]) tizanidine 2 MG Oral Tablet 09/07/2019 12:00:00 AM EST eCW1 ([facility]) Prazosin 2 MG Oral Capsule 08/26/2019 12:00:00 AM EST eCW1 ([facility]) Prazosin 2 MG Oral Capsule 08/26/2019 12:00:00 AM EST eCW1 ([facility]) Prazosin 2 MG Oral Capsule 08/26/2019 12:00:00 AM EST eCW1 ([facility]) Prazosin 2 MG Oral Capsule 08/26/2019 12:00:00 AM EST eCW1 ([facility]) Acetaminophen 325 MG / Hydrocodone Bitartrate 10 MG Or al Tablet 08/17/2019 12:00:00 AM EST eCW1 ([facility]) Omeprazole 40 MG Delayed Release Oral Capsule 08/06/2019 12:00:00 A M [facility] Acetaminophen 325 MG / Hydrocodone Bitartrate 10 MG Or al Tablet 07/14/2019 12:00:00 AM EST eCW1 ([facility]) Alprazolam 1 MG Oral Tablet 06/21/2019 12:00:00 AM EST eCW1 ([facility]) Acetaminophen 325 MG / Hydrocodone Bitartrate 10 MG Or al Tablet 06/17/2019 12:00:00 AM EST eCW1 ([facility]) Levothyroxine Sodium 0.175 MG Oral Tablet 06/10/2019 12:00:00 AM ES T eCW1 ([facility]) Levothyroxine Sodium 0.175 MG Oral Tablet 06/10/2019 12:00:00 AM ES T eCW1 ([facility]) Levothyroxine Sodium 0.175 MG Oral Tablet 06/10/2019 12:00:00 AM ES T eCW1 ([facility]) Levothyroxine Sodium 0.175 MG Oral Tablet 06/10/2019 12:00:00 AM ES T eCW1 ([facility]) Levofloxacin 750 MG Oral Tablet [Levaquin] 06/10/2019 12:00:[address] eCW1 ([facility]) Metronidazole 500 MG Oral Tablet 06/10/2019 12:00:00 AM EST eCW1 ([facility]) Ranitidine 300 MG Oral Tablet 01/13/2019 12:00:00 AM [facility]
--- OUTSIDE RECORDS SUMMARY | 2020-07-24 08:59 | CCD ---
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 20 Active 094185022 Problem Contracture of hand M24.549 Active 963179651 Problem Low back pain M54.5 Active 399409322 Problem Insomnia, unspecified type G47.00 Active 61398 2000 Problem Irritable bowel syndrome, unspecified type K58.9 Active 51906038 Problem Chronic GERD K21.9 Active 438029495 Problem Severe depression F32.2 Active 783557529 Problem PTSD (post-traumatic stress disorder) F43.10 Ac tive 99687999 ALLERGIES Allergen (clinical drug ingredient) Drug/Non Drug Allergy do cumented on EMR Reaction Allergy Type Onset Date Status Penicillin (For Allergies Use Only) Hives Drug Allerg y Active NSAID's- can not take due to gastric bypass Unknown Non Drug Allergy Active cyclobenzaprine Cyclobenzaprine HCl([facility] Code:[address]-67) Unkn own Drug Allergy Active ibuprofen Ibuprofen([facility] Code:[address]-02) Unknown Drug Allergy Active gabapentin Gabapentin([facility] Code:[address]-12) Unknown Drug Allergy Active amitriptyline Amitriptyline HCl([facility] Code:[address]-15) Unknown Dr ug Allergy Active pregabalin Lyrica([facility] Code:[address]-96) Unknown Drug Allergy Active duloxetine Cymbalta([facility] Code:[address]-22) Unknown Drug Allergy Active IV Dye Anaphylaxis Non Drug Allergy Active ENCOUNTERS from 1971 to 2020-04-24 Encounter Location Date Provider Diagnosis [address] [place] [address] Apr Mary Tayloroeanna IMMUNIZATIONS Vaccine Route Administration [...] Education Language: Question Answer Notes Languages spoken: Tristanian Denominational: Question Answer Notes Denominational 33 None Sexual Hx: Question Answer Notes [...] Duration) Start Date En d Date Status Nystatin 502746 UNIT/GM 1 application Externally Twice a day for 14 day(s) Sep, Active Biotin 1000 MCG 1 tablet Orally Once a day Active Prazosin HCl 2 MG 1 capsule at bedtime Orally Once a day f or 30 day(s) Aug, Active Alprazolam 1 MG 1 tablet Orally before bedtime for 30 days Jun, Active Omeprazole 40 MG 1 capsule 30 minutes before morning meal Orally Once a day for 90 day(s) Oct, Active Vitamin B12 1000 MCG 1 tablet Orally Once a day Active Ventolin HFA 108 (90 Base) MCG/ACT 2 puffs as needed I nhalation every 4 hours as needed for 30 days Apr, Active Hydrocodone-Acetaminophen 10-325 MG 1 tablet as needed Orally three times daily for 30 days Apr, Active Potassium Chloride ER 10 MEQ 1 tablet with food Oral Once a day for 30 days Active Tizanidine HCl 2 MG 1 tablet as needed Orally Three times a day for 30 Days Sep, Active HydrOXYzine HCl 25 MG 3 tablets Orally before bedtime for 30 day s Dec, Active Propranolol HCl 10 MG 1 tablet on an empty stomach Orally Once a day for 30 day(s) Active Multivitamin Adults - Orally Active PARoxetine HCl ER 25 mg 2 tablet in the morning Orally Once a da y for 30 Days Active Alprazolam 0.5 MG 1 tablet Orally in am for 30 days Aug, Active Fluconazole 150 MG 1 tablet Orally daily for 1 days Dec, Active Vitamin D-3 1000 UNIT 1 capsule Orally Once a day Active Levothyroxine Sodium 175 MCG 1 tablet in the morning o n an empty stomach Orally Once a day for 30 day(s) Jun, Active PROCEDURES No Information RESULTS No Results REASON FOR VISIT hosp f/u MEDICAL (GENERAL) HISTORY Type Description Date [...] Medication Name Sig Start Date Stop Date Potassium Chloride ER 10 MEQ 1 tablet with food Oral Once a day for 30 days Fluconazole 150 MG 1 tablet Orally daily for 1 days Dec, Hydrocodone-Acetaminophen 10-325 MG 1 tablet as needed Orally three times daily for 30 days Apr, Ventolin HFA 108 (90 Base) MCG/ACT 2 puffs as needed I nhalation every 4 hours as needed for 30 days Apr, Omeprazole 40 MG 1 capsule 30 minutes before morning meal Orally Once a day for 90 day(s) Oct, Next Appt Details Provider Name:Vanita Chi, 2019- 0 10:30:00 AM, [address] [place], [address], Insurance Providers Payer Name Payer Address Payer Phone Insured Name Patient Relati onship to Insured Coverage Start Date Coverage End Date [employer] MEDICARE [employer] INSURANCE [employer] [address] [facility] [phone] [place] self
[2020-07-24] MEDS ORDERED: MORPHINE 4 MG/ML 1ML VIAL/SYRINGE (J2270) IM ONE (09:15)
--- NOTE | 2020-07-24 10:29 | REP ---
INDICATION: trauma COMPARISON: None. TECHNIQUE: AP and frog-lateral views of the hip FINDINGS: Generalized age-related changes include subtle increased sclerosis to the acetabulum with minimal marginal spurring. No further overt osteoarthritic or significant degenerative changes are appreciated. No evidence for acute or healed injury. Surrounding soft tissues are normal. IMPRESSION: Mild generalized age-related changes. No acute fracture or dislocation. <Electronically signed by Raman Burks > 07/24/20 [id number]
--- NOTE | 2020-07-24 10:30 | REP ---
INDICATION: trauma COMPARISON: None. TECHNIQUE: AP, lateral, bilateral oblique and sunrise views. FINDINGS: Early advanced tricompartmental osteoarthritic degenerative changes include subchondral sclerosis, osteophytosis, chondrocalcinosis and joint space narrowing. No obvious acute fracture or dislocation. IMPRESSION: Early advanced tricompartmental osteoarthritic changes. No acute fracture or dislocation. <Electronically signed by Raman Burks > 07/24/20 [id number]
--- OUTSIDE RECORDS SUMMARY | 2020-07-24 10:32 | CCD ---
Author Author [facility] Organization [facility] Address Unknown Phone Unavailable Support Name Relationship Address Phone NO, CONTACT Next Of Kin Unknown Nathalia Brown Next Of Kin [address] [phone] JEREMIE BROWN Next Of Kin [address] [phone] GUSTAVO GUADARRAMA Next Of Kin [address] [facility] [place] [address] BETZY GUADARRAMA Next Of Kin [address] [facility] [address] [place] [address] JOANNA GUADARRAMA Next Of Kin [phone] [facility] [address] [place] [address] DUNCAN GUADARRAMA Next [address] [facility] [address] [place] [address] NATHALIA BROWN Next Of [address] [phone] MUMTAZ MANUEL Next Of Kin [address] [phone] TERRI BROWN Next Of Kin [address] [phone] SHAHID ARGUETA Next Of Kin Unknown DISABLED Next Of Kin Unknown Unavailable UNKNOWN Next Of Kin Unknown Unavailable L[place] [address] NONE UE Next Of Kin Unknown Unavailable EWELINA ARGUETA Next Of Kin [address] [place] [address] SHAHID ARGUETA Next Of Kin Unknown Betzy Guadarrama ECON / [place] [address] [phone] JEREMIE BRWON [address] [place] [address] [phone] Care Team Providers Care Wet Cleaner Machine Name Role Phone SETTERRivera MD Unavailable Unavailable SETTERRivera MD Unavailable [...] Unavailable Pugh, W Srini RPA-C Unavailable Unavailable ALTAF, L [...] L PAYAM PA Unavailable Unavailable Rzhevsky, Nuzhat BRAKE LINING MAKER-C Unavailable Unavailable Rzhevsky, Nuzhat BRAKE LINING MAKER-C Unavailable Unavailable Rzhevsky, Nuzhat BRAKE LINING MAKER-C Unavailable Unavailable Rzhevsky, Nuzhat BRAKE LINING MAKER-C Unavailable Unavailable Rzhevsky, Nuzhat BRAKE LINING MAKER-C Unavailable Unavailable Rzhevsky, Nuzhat BRAKE LINING MAKER-C Unavailable Unavailable Rzhevsky, Nuzhat BRAKE LINING MAKER-C Unavailable Unavailable Rzhevsky, Nuzhat BRAKE LINING MAKER-C Unavailable Unavailable Rzhevsky, Nuzhat BRAKE LINING MAKER-C Unavailable Unavailable Rzhevsky, Nuzhat BRAKE LINING MAKER-C Unavailable Unavailable Rzhevsky, Nuzhat BRAKE LINING MAKER-C Unavailable Unavailable Rzhevsky, Nuzhat BRAKE LINING MAKER-C Unavailable Unavailable Rzhevsky, Nuzhat BRAKE LINING MAKER-C Unavailable Unavailable Rzhevsky, Nuzhat BRAKE LINING MAKER-C Unavailable Unavailable Rzhevsky, Nuzhat BRAKE LINING MAKER-C Unavailable Unavailable Rzhevsky, Nuzhat BRAKE LINING MAKER-C Unavailable Unavailable Rzhevsky, Nuzhat BRAKE LINING MAKER-C Unavailable Unavailable Rzhevsky, Nuzhat BRAKE LINING MAKER-C Unavailable Unavailable Rzhevsky, Nuzhat BRAKE LINING MAKER-C Unavailable Unavailable Rzhevsky, Nuzhat BRAKE LINING MAKER-C Unavailable Unavailable Rzhevsky, Nuzhat BRAKE LINING MAKER-C Unavailable Unavailable Rzhevsky, Nuzhat BRAKE LINING MAKER-C Unavailable Unavailable Rzhevsky, Nuzhat BRAKE LINING MAKER-C Unavailable Unavailable Rzhevsky, Nuzhat BRAKE LINING MAKER-C Unavailable Unavailable Rzhevsky, Nuzhat BRAKE LINING MAKER-C Unavailable Unavailable Rzhevsky, Nuzhat BRAKE LINING MAKER-C Unavailable Unavailable Rzhevsky, Nuzhat BRAKE LINING MAKER-C Unavailable Unavailable Rzhevsky, Nuzhat BRAKE LINING MAKER-C Unavailable Unavailable Jorgito, Notasulga Cally RPA Unavailable Unavailable Jorgito, Notasulga Cally RPA Unavailable Unavailable Jorgito, Junior Cally RPA Unavailable Unavailable Jorgito, Junior Cally RPA Unavailable Unavailable Jorgito, Notasulga Cally RPA Unavailable Unavailable Jorgito, Notasulga Cally RPA Unavailable Unavailable Jorgito, Junior Cally RPA Unavailable Unavailable Jorgito, Notasulga Cally RPA Unavailable Unavailable Jorgito, Notasulga Cally RPA Unavailable Unavailable Jorgito, Notasulga Cally RPA Unavailable Unavailable Jorgito, Notasulga Cally RPA Unavailable Unavailable Jorgito, Notasulga Cally RPA Unavailable Unavailable Jorgito, Notasulga Cally RPA Unavailable Unavailable Jorgito, Notasulga Cally RPA Unavailable Unavailable Jorgito, Junior Cally RPA Unavailable Unavailable Jorgito, Junior Cally RPA Unavailable Unavailable Jorgito, Junior Cally RPA Unavailable Unavailable Jorgito, Notasulga Cally RPA Unavailable Unavailable Jorgito, Notasulga Cally RPA Unavailable Unavailable Jorgito, Notasulga Cally RPA Unavailable Unavailable Jorgito, Junior Cally RPA Unavailable Unavailable Jorgito, Notasulga Cally RPA Unavailable Unavailable Jorgito, Notasulga Cally RPA Unavailable Unavailable Khalif, A Eneida BRAKE LINING MAKER Unavailable Unavailable Khalif, A Eneida BRAKE LINING MAKER Unavailable Unavailable Khalif, A Eneida BRAKE LINING MAKER Unavailable Unavailable Khalif, A Eneida BRAKE LINING MAKER Unavailable Unavailable Khalif, A Eneida BRAKE LINING MAKER Unavailable Unavailable Khalif, A Eneida BRAKE LINING MAKER Unavailable Unavailable Khalif, A Eneida BRAKE LINING MAKER Unavailable Unavailable Khalif, A Eneida BRAKE LINING MAKER Unavailable Unavailable Khalif, A Eneida BRAKE LINING MAKER Unavailable Unavailable Khalif, A Eneida BRAKE LINING MAKER Unavailable Unavailable Khalif, A Eneida BRAKE LINING MAKER Unavailable Unavailable Kahlif, A Eneida BRAKE LINING MAKER Unavailable Unavailable Khalif, A Eneida BRAKE LINING MAKER Unavailable Unavailable Khalif, A Eneida BRAKE LINING MAKER Unavailable Unavailable Khalif, A Eneida BRAKE LINING MAKER Unavailable Unavailable Khalif, A Eneida BRAKE LINING MAKER Unavailable Unavailable Khalif, A Eneida BRAKE LINING MAKER Unavailable Unavailable Khalif, A Eneida BRAKE LINING MAKER Unavailable Unavailable Khalif, A Eneida BRAKE LINING MAKER Unavailable Unavailable Khalif, A Eneida BRAKE LINING MAKER Unavailable Unavailable Khalif, A Eneida BRAKE LINING MAKER Unavailable Unavailable Khalif, A Eneida BRAKE LINING MAKER Unavailable Unavailable Khalif, A Eneida BRAKE LINING MAKER Unavailable Unavailable Khalif, A Eneida BRAKE LINING MAKER Unavailable Unavailable Khalif, A Eneida BRAKE LINING MAKER Unavailable Unavailable Khalif, A Eneida BRAKE LINING MAKER Unavailable Unavailable Khalif, A Eneida BRAKE LINING MAKER Unavailable Unavailable Khalif, A Eneida BRAKE LINING MAKER Unavailable Unavailable Khalif, A Eneida BRAKE LINING MAKER Unavailable Unavailable Khalif, A Eneida BRAKE LINING MAKER Unavailable Unavailable Khalif, A Eneida BRAKE LINING MAKER Unavailable Unavailable Khalif, A Eneida BRAKE LINING MAKER Unavailable Unavailable Khalif, A Eneida BRAKE LINING MAKER Unavailable Unavailable Khalif, A Eneida BRAKE LINING MAKER Unavailable Unavailable Khalif, A Eneida BRAKE LINING MAKER Unavailable Unavailable Khalif, A Eneida BRAKE LINING MAKER Unavailable Unavailable Khalif, A Eneida BRAKE LINING MAKER Unavailable Unavailable Khalif, A Eneida BRAKE LINING MAKER Unavailable Unavailable Khalif, A Eneida BRAKE LINING MAKER Unavailable Unavailable Khalif, A Eneida BRAKE LINING MAKER Unavailable Unavailable Khalif, A Eneida BRAKE LINING MAKER Unavailable Unavailable Khalif, A Eneida BRAKE LINING MAKER Unavailable Unavailable Khalif, A Eneida BRAKE LINING MAKER Unavailable Unavailable Khalif, A Eneida BRAKE LINING MAKER Unavailable Unavailable ALANIZ, REI Unavailable Unavailable BROWN, [...] DMITRY NATHAN PA Unavailable Unavailable DESJARLAIS, ESTEBAN PANEL SEWER Unavailable Unavailable DESJARLAIS, ESTEBAN PANEL SEWER Unavailable Unavailable DESJARLAIS, ESTEBAN PANEL SEWER Unavailable Unavailable DESJARLAIS, ESTEBAN PANEL SEWER Unavailable Unavailable DESJARLAIS, ESTEBAN PANEL SEWER Unavailable Unavailable DESJARLAIS, ESTEBAN PANEL SEWER Unavailable Unavailable DESJARLAIS, ESTEBAN PANEL SEWER Unavailable Unavailable DESJARLAIS, ESTEBAN PANEL SEWER Unavailable Unavailable DESJARLAIS, ESTEBAN PANEL SEWER Unavailable Unavailable Ashlyn Gaytan MD Unavailable Unavailable [...] is protected by Article 27-F of the [facility] Public Health law. If you continue you may have access to information: Regarding HIV / AIDS; Provided by facilities licensed or operated by the [facility] Office of Mental Health; or Provided by the [facility] Office for People With Developmental Disabilities. If such information is present, then the following [facility] mandated warning applies: This information has been [...] law may result in a fine or custodial sentence or both. A general authorization for the release of medical or other information is NOT sufficient authorization for further disc losure. Allergies and Adverse Reactions Type Description Substance Reaction Status Data Source(s ) Drug allergy Cymbalta duloxetine Unknown Active eCW1 ([facility]) Drug allergy Lyrica pregabalin Unknown Active eCW1 ([facility]) Drug allergy Amitriptyline HCl Amitriptyline Unknown Active eC W1 ([facility]) Drug allergy Ibuprofen Ibuprofen Unknown Active eCW1 ([facility]) Cyclobenzaprine HCl Cyclobenzaprine HCl Cyclobenzaprine HCl Unknown Active eCW1 ([facility]) IV Dye IV Dye IV Dye Anaphylaxis Active eCW1 ([facility]) NSAID's- can not take due to gastric bypass NSAID's- c an not take due to gastric bypass NSAID's- can not take due to gastric bypass Unknown Acti ve eCW1 ([facility]) IV Dye IV Dye IV Dye Anaphylaxis Active eCW1 ([facility]) NSAID's- can not take due to gastric bypass NSAID's- c an not take due to gastric bypass NSAID's- can not take due to gastric bypass Unknown Acti ve eCW1 ([facility]) IV Dye IV Dye IV Dye Anaphylaxis Active eCW1 ([facility]) NSAID's- can not take due to gastric bypass NSAID's- c an not take due to gastric bypass NSAID's- can not take due to gastric bypass Unknown Acti ve eCW1 ([facility]) Family History Family Member Name Family Member Gender Family Member Status Date o f Status Description Data Source(s) Unknown Unknown Problem MEDENT (Andres mcgee [employer]IN[employer] INTERN) Encounters Encounter Providers Location Date Indications Data Source(s ) [place] [address] [facility] [address] 07/17/2020 12:00:00 AM EST eCW1 ([facility]) Unknown [address] [facility] [address] 07/17/2020 12:00:00 AM EST eCW1 ([facility]) Outpatient Attender: ALISON GORDON 07/12/2020 06:00:00 PM [facility] Outpatient Attender: Barrera Gaytan MD Main office - [facility] 07/10/2020 08:00:00 AM EST MEDENT ([facility] EDILBERTO Ayoub) [place] [address] [facility] [address] 07/10/2020 12:00:00 AM EST eCW1 ([facility]) Outpatient Attender: ALISON GORDON 06/27/2020 06:00:00 PM [facility] Outpatient Attender: ESTEBAN GIL NP 06/22/2020 02: 20:00 PM [facility] Outpatient Attender: ALISON GORDON 06/20/2020 06:00:00 PM [facility] Unknown [address] [facility] [address] 06/14/2020 12:00:00 AM EST eCW1 ([facility]) Outpatient Attender: ALISON GORDON 06/06/2020 06:00:00 PM E [facility] Outpatient Attender: ALISON GORDON 05/30/2020 06:00:00 PM E [facility] Admission cancelled. Disregard status an d admitted date. Outpatient Attender: ALISON GORDON 05/23/2020 06:00:00 PM [facility] Out[place] [address] [facility] [address] 05/17/2020 12:00:00 AM EST eCW1 ([facility]) Outpatient Attender: ALISON GORDON 05/16/2020 06:00:00 PM [facility] Unknown [address] [facility] [address] 05/12/2020 12:00:00 AM EST [facility] [place] [address] [facility] [address] 05/11/2020 12:00:00 AM EST eCW1 [facility]) [place] [address] [facility] [address] 05/11/2020 12:00:00 AM EST [facility] [place] [address] [facility] [address] 05/09/2020 12:00:00 AM EST eCW1 ([facility]) [place] [address] [facility] [address] 05/04/2020 12:00:00 AM EDT eCW1 ([facility]) Outpatient Attender: ALISON GORDON 05/03/2020 06:00:00 PM E [facility] Unknown [address] [facility] [address] 04/27/2020 12:00:00 AM EDT eCW1 ([facility]) [place] [address] [facility] [address] 04/24/2020 12:00:00 AM EDT eCW1 ([facility]) Outpatient Attender: ESTEBAN GIL NP [facility]2020 [facility]: [facility] 04/17/2020 05:00:00 PM E [facility] Unknown [address] [facility] [address] 04/13/2020 12:00:00 AM EDT eCW1 ([facility]) Outpatient Attender: ALISON GORDON 03/27/2020 06:00:00 PM E [facility] Outpatient Attender: ESTEBAN GIL NP 03/23/2020 [facility]: [facility] GORDON 03/20/2020 06:00:00 PM E [facility] Outpatient Attender: ALISON GORDON 03/06/2020 06:00:00 PM E [facility] Outpatient Attender: ALISON GORDON 02/28/2020 06:00:00 PM E [facility] Outpatient Attender: ESTEBAN GIL NP 02/24/2020 [facility]: [facility] GORDON 02/14/2020 05:59:00 PM E [facility] Outpatient Attender: ALISON GORODN 02/02/2020 06:00:00 PM E [facility] Outpatient Attender: ALISON GORDON 01/26/2020 06:00:00 PM E [facility] Unknown [address] [facility] [address] 01/24/2020 12:00:00 AM EDT eCW1 ([facility]) Outpatient Attender: ESTEBAN GIL NP 01/13/2020 [facility]: [facility] GORDON 01/12/2020 06:00:00 PM E [facility] Admission cancelled. Disregard status an d admitted date. Outpatient Attender: ALISON GORDON 01/05/2020 06:00:00 PM E [facility] Outpatient Attender: ALISON GORDON 12/28/2019 11:30:00 AM E [facility] Outpatient Attender: ALISON GORDON 12/22/2019 06:00:00 PM E [facility] [address] [facility] [address] 12/16/2019 12:00:00 AM EDT eCW1 ([facility]) Unknown [address] [facility] [address] 12/15/2019 12:00:00 AM EDT eCW1 ([facility]) Outpatient Attender: ALISON GORDON 12/14/2019 09:33:00 AM E [facility] Unknown [address] [facility] [address] 12/14/2019 12:00:00 AM EDT eCW1 ([facility]) Outpatient Attender: ALISON GORDON 12/08/2019 03:00:00 PM E [facility] Unknown [address] [facility] [address] 12/07/2019 12:00:00 AM EDT eCW1 ([facility]) Outpatient Attender: ESTEBAN GIL NP 12/02/2019 01: 00:00 PM [facility] Outpatient Attender: ALISON GORDON 11/22/2019 06:00:00 PM [facility] Outpatient Attender: ESTEBAN GIL NP 11/18/2019 01: 40:00 PM [facility] Outpatient Attender: ALISON GORDON 11/15/2019 05:57:00 PM [facility] [address] [facility] [address] 11/09/2019 12:00:00 AM EDT eCW1 ([facility]) Outpatient Attender: ALISON GORDON 10/28/2019 09:24:00 AM [facility] Outpatient Referrer: Cally Bull RPA 10/05 12:00:00 AM EDT - 10/21/2019 03:43:08 PM EDT Pain in left finger(s) [facility] Pain in left finger(s) Outpatient Attender: EDVIN KENT MD [id number] 10/21/2019 12:0 0:00 AM EDT Pain in left hand [facility] Pain in left hand Outpatient Attender: EDVIN KENT MD 10/14/2019 12:00:00 A M [facility] Outpatient Referrer: Nuzhat PINON 10/13/2019 05:56: 00 AM EDT [facility] [address] [address] 10/11/2019 12:00:00 AM EDT eCW1 ([facility]) Outpatient Attender: Cally Bull RPA 10/11/2019 12:00:00 AM ED[place] [address] [address] 10/07/2019 12:00:00 AM EDT eCW1 ([facility]) Outpatient Attender: ESTEBAN GIL NP 10/06/2019 10: 40:00 AM [facility] Outpatient Attender: ALISON GORDON 10/04/2019 06:30:00 PM [facility] Outpatient Attender: ALISON GORDON 09/30/2019 11:30:00 AM [facility] Outpatient Attender: EDVIN KENT MD [id number] 09/30/2019 12:00:00 AM [facility] Outpatient Attender: EDVIN KENT MD 09/29/2019 12:00:00 A M [address] [address] 09/27/2019 12:00:00 AM EDT eCW1 ([facility]) [address] [address] 09/22/2019 12:00:00 AM EDT eCW1 ([facility]) [address] [address] 09/21/2019 12:00:00 AM EDT eCW1 ([facility]) Outpatient Referrer: Cally Bull RPA 09/20/2019 12 :00:00 AM EDT Pain in left finger(s) [facility] Pain in left finger(s) Outpatient Attender: Cally Bull RPA [id number] 09/20/2019 12:00:0 [address] [address] 09/20/2019 12:00:00 AM EDT eCW1 ([facility]) [address] [address] 09/20/2019 12:00:00 AM EDT eCW1 ([facility]) [address] [address] 09/20/2019 12:00:00 AM EDT eCW1 ([facility]) [address] [address] 09/15/2019 12:00:00 AM EDT eCW1 ([facility]) [address] [address] 09/09/2019 12:00:00 AM EST eCW1 ([facility]) Outpatient Attender: EDVIN KENT MD 09/09/2019 12:00:00 A [place] [address] [address] 09/07/2019 12:00:00 AM EST eCW1 ([facility]) [address] [address] 09/06/2019 12:00:00 AM EST eCW1 ([facility]) [address] [address] 08/26/2019 12:00:00 AM EST eCW1 ([facility]) Outpatient Attender: EDVIN KENT MD 08/19/2019 12:00:00 A M [address] [address] 08/17/2019 12:00:00 AM EST eCW1 ([facility]) [address] [address] 08/09/2019 12:00:00 AM EST eCW1 ([facility]) Outpatient Attender: ESTEBAN GIL NP 08/03/2019 11: 30:00 AM [facility] Outpatient Attender: EDVIN KENT MD 07/21/2019 12:00:00 A M [facility] Outpatient Attender: Cally Bull RPA 07/20/2019 12:00:[address] [address] 07/15/2019 12:00:00 AM EST eCW1 ([facility]) [address] [address] 07/14/2019 12:00:00 AM EST eCW1 ([facility]) Outpatient Attender: ESTEBAN GIL NP 07/13/2019 10: 57:[address], [facility] [address] 06/21/2019 12:00:00 AM EST eCW1 ([facility]) [address], [facility] [address] 06/17/2019 12:00:00 AM EST eCW1 ([facility]) Outpatient Attender: EDVIN KENT MD 06/17/2019 12:00:00 A M [address], [facility] [address] 06/14/2019 12:00:00 AM EST eCW1 ([facility]) Outpatient Referrer: Nuzhat Rasheed BRAKE LINING MAKER-C 06/13/2019 09:10: 00 PM EST [facility] [address], [facility] [address] 06/10/2019 12:00:00 AM EST eCW1 ([facility]) [address] [address] 06/10/2019 12:00:00 AM EST eCW1 ([facility]) [address] [address] 06/01/2019 12:00:00 AM EST eCW1 ([facility]) [address] [address] 05/27/2019 12:00:00 AM EST eCW1 ([facility]) [facility] [place] [address] [facility] [address] 05/27/2019 12:00:00 AM EST eCW1 ([facility]) Outpatient Attender: ALISON GORDON 03/09/2019 10:00:00 AM [facility] Outpatient Attender: EDVIN KENT MD [id number] 2018 12:00:00 AM EDT - 02/17/2019 01:50:06 PM EDT Pain in right hand [facility] Pain in right hand Outpatient Attender: REI ALANIZ 2018 08:46:00 AM EDT - 03/06/2019 12:00:00 AM [facility] Patient discharged. Outpatient Attender: LUIS VILLAGOMEZ MD 01/14/2019 10:00:00 AM [facility] Outpatient Attender: REI ALANIZ 2018 08:53:00 AM EDT - 02/02/2019 05:00:00 PM [facility] Patient discharged. Outpatient Attender: Dr. Geovanny Billy MD 12/15/2018 10:27:00 AM EDT - 01/01/2019 12:09:00 PM [facility] Outpatient Attender: Eneida CHINCHILLA 12/08/2018 01:30 :00 PM [facility] Emergency Attender: PAYAM STRONG 10/05 10:41:00 AM EDT - 10/21/2018 11:20:00 AM [facility] Outpatient Attender: REI ALANIZ 2018 10:02:00 AM EDT - 10/26/2018 05:00:00 PM [facility] Emergency Attender: Srini GERARDO 03/2019 10:24:00 AM EST - 09/12/2018 11:16:00 AM [facility] Outpatient Attender: REI ALANIZ 2018 10:38:00 AM EST - 10/01/2018 02:01:00 PM [facility] Emergency Attender: NATHAN STRONG EMERGENCY ROOM-ER 08/05/2018 05:40:00 PM EST - 08/05/2018 06:36:00 PM [facility] Emergency Attender: NATHAN STRONG 10:59:00 PM EDT - 02/05/2018 11:42:00 PM [facility] Emergency Attender: PAYAM STRONG 01/04 02:36:00 PM EDT - 01/22/2018 03:12:00 PM [facility] Immunizations Vaccine Date Status Description Data Source(s) influenza, recombinant, quadrIvalent,injectable, prese rvative free 05/09/2020 04:45:00 PM EST completed eCW1 ([facility]) influenza, recombinant, quadrIvalent,injectable, prese rvative free 05/09/2020 04:45:00 PM EST completed eCW1 ([facility]) influenza, recombinant, quadrIvalent,injectable, prese rvative free 05/09/2020 04:45:00 PM EST completed eCW1 ([facility]) influenza, recombinant, quadrIvalent,injectable, prese rvative free 05/09/2020 04:45:00 PM EST completed eCW1 ([facility]) influenza, recombinant, quadrIvalent,injectable, prese rvative free 05/09/2020 04:45:00 PM EST completed eCW1 ([facility]) influenza, recombinant, quadrIvalent,injectable, prese rvative free 05/09/2020 04:45:00 PM EST completed eCW1 ([facility]) influenza, recombinant, quadrIvalent,injectable, prese rvative free 05/09/2020 04:45:00 PM EST completed eCW1 ([facility]) influenza, recombinant, quadrIvalent,injectable, prese rvative free 05/09/2020 04:45:00 PM EST completed eCW1 ([facility]) influenza, recombinant, quadrIvalent,injectable, prese rvative free 05/09/2020 04:45:00 PM EST completed eCW1 ([facility]) Medications Medication Brand Name Start Date Product Form Dose Route Admi nistrative Instructions Pharmacy Instructions Status Indications Reaction Description Data Source(s) Acetaminophen 325 MG / Hydrocodone Katharina trate 10 MG Oral Tablet Hydrocodone- Acetaminophen 10-325 MG Hydrocodone-Acetaminophen 10-325 MG 07/17/2020 12:00:0 0 AM EST 1.0 {tablet_as_needed} active Hydrocodone-Acetaminophen 10- 325 MG eCW1 ([facility]) Acetaminophen 325 MG / Hydrocodone Katharina trate 10 MG Oral Tablet Hydrocodone- Acetaminophen 10-325 MG Hydrocodone-Acetaminophen 10-325 MG 07/17/2020 12:00:0 0 AM EST 1.0 {tablet_as_needed} active Hydrocodone-Acetaminophen 10- 325 MG eCW1 ([facility]) Verapamil hydrochloride 40 MG Oral Tablet Verapamil HCL 07/10/2020 12:00:00 AM EST ORAL active MEDENT ([facility], ) Acetaminophen 325 MG / Hydrocodone Katharina trate 10 MG Oral Tablet Hydrocodone- Acetaminophen 10-325 MG Hydrocodone-Acetaminophen 10-325 MG 06/14/2020 12:00:0 0 AM EST 1.0 {tablet_as_needed} active Hydrocodone-Acetaminophen 10- 325 MG eCW1 (Formerly [facility]) Acetaminophen 325 MG / Hydrocodone Katharina trate 10 MG Oral Tablet Hydrocodone- Acetaminophen 10-325 MG Hydrocodone-Acetaminophen 10-325 MG 06/14/2020 12:00:0 0 AM EST 1.0 {tablet_as_needed} active Hydrocodone-Acetaminophen 10- 325 MG eCW1 (Formerly [facility]) Acetaminophen 325 MG / Hydrocodone Katharina trate 10 MG Oral Tablet Hydrocodone- Acetaminophen 10-325 MG Hydrocodone-Acetaminophen 10-325 MG 05/17/2020 12:00:0 0 AM EST 1.0 {tablet_as_needed} active Hydrocodone-Acetaminophen 10- 325 MG eCW1 (Formerly [facility]) Acetaminophen 325 MG / Hydrocodone Katharina trate 10 MG Oral Tablet Hydrocodone- Acetaminophen 10-325 MG Hydrocodone-Acetaminophen 10-325 MG 05/17/2020 12:00:0 0 AM EST 1.0 {tablet_as_needed} active Hydrocodone-Acetaminophen 10- 325 MG eCW1 (Formerly [facility]) Acetaminophen 325 MG / Hydrocodone Katharina trate 10 MG Oral Tablet Hydrocodone- Acetaminophen 10-325 MG Hydrocodone-Acetaminophen 10-325 MG 05/17/2020 12:00:0 0 AM EST 1.0 {tablet_as_needed} active Hydrocodone-Acetaminophen 10- 325 MG eCW1 (Formerly [facility]) Prednisone 10 MG Oral Tablet PredniSONE 10 MG PredniSONE 10 MG 05/11/2020 12:00:00 AM EST active PredniSO NE 10 MG eCW1 (Formerly [facility]) Prednisone 10 MG Oral Tablet PredniSONE 10 MG PredniSONE 10 MG 05/11/2020 12:00:00 AM EST active PredniSO NE 10 MG eCW1 (Formerly [facility]) Prednisone 10 MG Oral Tablet PredniSONE 10 MG PredniSONE 10 MG 05/11/2020 12:00:00 AM EST active PredniSO NE 10 MG eCW1 (Formerly [facility]) Prednisone 10 MG Oral Tablet PredniSONE 10 MG PredniSONE 10 MG 05/11/2020 12:00:00 AM EST active PredniSO NE 10 MG eCW1 (Formerly [facility]) Prednisone 10 MG Oral Tablet PredniSONE 10 MG PredniSONE 10 MG 05/11/2020 12:00:00 AM EST active PredniSO NE 10 MG eCW1 (Formerly [facility]) Prednisone 10 MG Oral Tablet PredniSONE 10 MG PredniSONE 10 MG 05/11/2020 12:00:00 AM EST active PredniSO NE 10 MG eCW1 (Formerly [facility]) Prednisone 10 MG Oral Tablet PredniSONE 10 MG PredniSONE 10 MG 05/11/2020 12:00:00 AM EST active PredniSO NE 10 MG eCW1 (Formerly [facility]) Nystatin 874351 UNT/ML Topical Cream Nystatin 288405 U NIT/GM Nystatin 401112 UNIT/GM 05/09/2020 12:00:00 AM EST 1.0 {application} active Nystatin 608039 UNIT/GM eCW1 (Formerly [facility]) Nystatin 200579 UNT/ML Topical Cream Nystatin 958584 U NIT/GM Nystatin 224314 UNIT/GM 05/09/2020 12:00:00 AM EST 1.0 {application} active Nystatin 438944 UNIT/GM eCW1 (Formerly [facility]) Nystatin 870009 UNT/ML Topical Cream Nystatin 675021 U NIT/GM Nystatin 052951 UNIT/GM 05/09/2020 12:00:00 AM EST 1.0 {application} active Nystatin 405037 UNIT/GM eCW1 (Formerly [facility]) Nystatin 351029 UNT/ML Topical Cream Nystatin 401944 U NIT/GM Nystatin 986482 UNIT/GM 05/09/2020 12:00:00 AM EST 1.0 {application} active Nystatin 075466 UNIT/GM eCW1 (Formerly [facility]) Nystatin 786914 UNT/ML Topical Cream Nystatin 141190 U NIT/GM Nystatin 986012 UNIT/GM 05/09/2020 12:00:00 AM EST 1.0 {application} active Nystatin 605903 UNIT/GM eCW1 (Formerly [facility]) Nystatin 271586 UNT/ML Topical Cream Nystatin 083205 U NIT/GM Nystatin 561999 UNIT/GM 05/09/2020 12:00:00 AM EST 1.0 {application} active Nystatin 325076 UNIT/GM eCW1 (Formerly [facility]) Nystatin 479633 UNT/ML Topical Cream Nystatin 289686 U NIT/GM Nystatin 636150 UNIT/GM 05/09/2020 12:00:00 AM EST 1.0 {application} active Nystatin 921157 UNIT/GM eCW1 (Formerly [facility]) Nystatin 622394 UNT/ML Topical Cream Nystatin 987031 U NIT/GM Nystatin 948946 UNIT/GM 05/09/2020 12:00:00 AM EST 1.0 {application} active Nystatin 171767 UNIT/GM eCW1 (Formerly [facility]) Nystatin 809495 UNT/ML Topical Cream Nystatin 216326 U NIT/GM Nystatin 561749 UNIT/GM 05/09/2020 12:00:00 AM EST 1.0 {application} active Nystatin 753691 UNIT/GM eCW1 (Formerly [facility]) Acetaminophen 325 MG / Hydrocodone Katharina trate 10 MG Oral Tablet Hydrocodone- Acetaminophen 10-325 MG Hydrocodone-Acetaminophen 10-325 MG 04/17/2020 12:00:0 0 AM EDT 1.0 {tablet_as_needed} active Hydrocodone-Acetaminophen 10- 325 MG eCW1 (Formerly [facility]) Acetaminophen 325 MG / Hydrocodone Katharina trate 10 MG Oral Tablet Hydrocodone- Acetaminophen 10-325 MG Hydrocodone-Acetaminophen 10-325 MG 04/17/2020 12:00:0 0 AM EDT 1.0 {tablet_as_needed} active Hydrocodone-Acetaminophen 10- 325 MG eCW1 (Formerly [facility]) Acetaminophen 325 MG / Hydrocodone Katharina trate 10 MG Oral Tablet Hydrocodone- Acetaminophen 10-325 MG Hydrocodone-Acetaminophen 10-325 MG 04/17/2020 12:00:0 0 AM EDT 1.0 {tablet_as_needed} active Hydrocodone-Acetaminophen 10- 325 MG eCW1 (Formerly [facility]) Acetaminophen 325 MG / Hydrocodone Katharina trate 10 MG Oral Tablet Hydrocodone- Acetaminophen 10-325 MG Hydrocodone-Acetaminophen 10-325 MG 04/17/2020 12:00:0 0 AM EDT 1.0 {tablet_as_needed} active Hydrocodone-Acetaminophen 10- 325 MG eCW1 (Formerly [facility]) Acetaminophen 325 MG / Hydrocodone Katharina trate 10 MG Oral Tablet Hydrocodone- Acetaminophen 10-325 MG Hydrocodone-Acetaminophen 10-325 MG 04/17/2020 12:00:0 0 AM EDT 1.0 {tablet_as_needed} active Hydrocodone-Acetaminophen 10- 325 MG eCW1 (Formerly [facility]) Acetaminophen 325 MG / Hydrocodone Katharina trate 10 MG Oral Tablet Hydrocodone- Acetaminophen 10-325 MG Hydrocodone-Acetaminophen 10-325 MG 04/17/2020 12:00:0 0 AM EDT 1.0 {tablet_as_needed} active Hydrocodone-Acetaminophen 10- 325 MG eCW1 (Formerly [facility]) Acetaminophen 325 MG / Hydrocodone Katharina trate 10 MG Oral Tablet Hydrocodone- Acetaminophen 10-325 MG Hydrocodone-Acetaminophen 10-325 MG 04/17/2020 12:00:0 0 AM EDT 1.0 {tablet_as_needed} active Hydrocodone-Acetaminophen 10- 325 MG eCW1 (Formerly [facility]) Acetaminophen 325 MG / Hydrocodone Katharina trate 10 MG Oral Tablet Hydrocodone- Acetaminophen 10-325 MG Hydrocodone-Acetaminophen 10-325 MG 04/17/2020 12:00:0 0 AM EDT 1.0 {tablet_as_needed} active Hydrocodone-Acetaminophen 10- 325 MG eCW1 (Formerly [facility]) Acetaminophen 325 MG / Hydrocodone Katharina trate 10 MG Oral Tablet Hydrocodone- Acetaminophen 10-325 MG Hydrocodone-Acetaminophen 10-325 MG 04/17/2020 12:00:0 0 AM EDT 1.0 {tablet_as_needed} active Hydrocodone-Acetaminophen 10- 325 MG eCW1 (Formerly [facility]) Acetaminophen 325 MG / Hydrocodone Katharina trate 10 MG Oral Tablet Hydrocodone- Acetaminophen 10-325 MG Hydrocodone-Acetaminophen 10-325 MG 04/17/2020 12:00:0 0 AM EDT 1.0 {tablet_as_needed} active Hydrocodone-Acetaminophen 10- 325 MG eCW1 (Formerly [facility]) Acetaminophen 325 MG / Hydrocodone Katharina trate 10 MG Oral Tablet Hydrocodone- Acetaminophen 10-325 MG Hydrocodone-Acetaminophen 10-325 MG 04/17/2020 12:00:0 0 AM EDT 1.0 {tablet_as_needed} active Hydrocodone-Acetaminophen 10- 325 MG eCW1 (Formerly [facility]) Acetaminophen 325 MG / Hydrocodone Katharina trate 10 MG Oral Tablet Hydrocodone- Acetaminophen 10-325 MG Hydrocodone-Acetaminophen 10-325 MG 01/13/2020 12:00:0 0 AM EDT 1.0 {tablet_as_needed} active Hydrocodone-Acetaminophen 10- 325 MG eCW1 (Formerly [facility]) Acetaminophen 325 MG / Hydrocodone Katharina trate 10 MG Oral Tablet Hydrocodone- Acetaminophen 10-325 MG Hydrocodone-Acetaminophen 10-325 MG 12/14/2019 12:00:0 0 AM EDT 1.0 {tablet_as_needed} active Hydrocodone-Acetaminophen 10- 325 MG eCW1 (Formerly [facility]) Acetaminophen 325 MG / Hydrocodone Katharina trate 10 MG Oral Tablet Hydrocodone- Acetaminophen 10-325 MG Hydrocodone-Acetaminophen 10-325 MG 12/14/2019 12:00:0 0 AM EDT 1.0 {tablet_as_needed} active Hydrocodone-Acetaminophen 10- 325 MG eCW1 (Formerly [facility]) Fluconazole 150 MG Oral Tablet Fluconazole 150 MG 12/07/2019 12:00: 00 AM EDT 1.0 {tablet} active Fluconazole 150 MG eCW1 (Formerly [facility]) Fluconazole 150 MG Oral Tablet Fluconazole 150 MG 12/07/2019 12:00: 00 AM EDT 1.0 {tablet} active Fluconazole 150 MG eCW1 (Formerly [facility]) Fluconazole 150 MG Oral Tablet Fluconazole 150 MG 12/07/2019 12:00: 00 AM EDT 1.0 {tablet} active Fluconazole 150 MG eCW1 (Formerly [facility]) Fluconazole 150 MG Oral Tablet Fluconazole 150 MG 12/07/2019 12:00: 00 AM EDT 1.0 {tablet} active Fluconazole 150 MG eCW1 (Formerly [facility]) Fluconazole 150 MG Oral Tablet Fluconazole 150 MG 12/07/2019 12:00: 00 AM EDT 1.0 {tablet} active Fluconazole 150 MG eCW1 (Formerly [facility]) Fluconazole 150 MG Oral Tablet Fluconazole 150 MG 12/07/2019 12:00: 00 AM EDT 1.0 {tablet} active Fluconazole 150 MG eCW1 (Formerly [facility]) Acetaminophen 325 MG / Hydrocodone Katharina trate 10 MG Oral Tablet Hydrocodone- Acetaminophen 10-325 MG Hydrocodone-Acetaminophen 10-325 MG 11/09/2019 12:00:0 0 AM EDT active 1 tablet as neede d eCW1 (Formerly [facility]) Omeprazole 40 MG Delayed Release Oral Capsule Omeprazole 40 MG 10/11/2019 12:00:00 AM EDT active Omeprazo le 40 MG eCW1 (Formerly [facility]) Omeprazole 40 MG Delayed Release Oral Capsule Omeprazole 40 MG 10/11/2019 12:00:00 AM EDT active Omeprazo le 40 MG eCW1 (Formerly [facility]) Omeprazole 40 MG Delayed Release Oral Capsule Omeprazole 40 MG 10/11/2019 12:00:00 AM EDT active Omeprazo le 40 MG eCW1 (Formerly [facility]) Omeprazole 40 MG Delayed Release Oral Capsule Omeprazole 40 MG 10/11/2019 12:00:00 AM EDT active Omeprazo le 40 MG eCW1 (Formerly [facility]) Omeprazole 40 MG Delayed Release Oral Capsule Omeprazole 40 MG 10/11/2019 12:00:00 AM EDT active Omeprazo le 40 MG eCW1 (Formerly [facility]) Omeprazole 40 MG Delayed Release Oral Capsule Omeprazole 40 MG 10/11/2019 12:00:00 AM EDT active Omeprazo le 40 MG eCW1 (Formerly [facility]) Omeprazole 40 MG Delayed Release Oral Capsule Omeprazole 40 MG 10/11/2019 12:00:00 AM EDT active Omeprazo le 40 MG eCW1 (Formerly [facility]) Omeprazole 40 MG Delayed Release Oral Capsule Omeprazole 40 MG 10/11/2019 12:00:00 AM EDT active Omeprazo le 40 MG eCW1 (Formerly [facility]) Omeprazole 40 MG Delayed Release Oral Capsule Omeprazole 40 MG 10/11/2019 12:00:00 AM EDT active Omeprazo le 40 MG eCW1 (Formerly [facility]) Omeprazole 40 MG Delayed Release Oral Capsule Omeprazole 40 MG 10/11/2019 12:00:00 AM EDT active Omeprazo le 40 MG eCW1 (Formerly [facility]) Omeprazole 40 MG Delayed Release Oral Capsule Omeprazole 40 MG 10/11/2019 12:00:00 AM EDT active Omeprazo le 40 MG eCW1 (Formerly [facility]) Omeprazole 40 MG Delayed Release Oral Capsule Omeprazole 40 MG 10/11/2019 12:00:00 AM EDT active Omeprazo le 40 MG eCW1 (Formerly [facility]) Omeprazole 40 MG Delayed Release Oral Capsule Omeprazole 40 MG 10/11/2019 12:00:00 AM EDT active Omeprazo le 40 MG eCW1 (Formerly [facility]) Omeprazole 40 MG Delayed Release Oral Capsule Omeprazole 40 MG 10/11/2019 12:00:00 AM EDT active Omeprazo le 40 MG eCW1 (Formerly [facility]) Omeprazole 40 MG Delayed Release Oral Capsule Omeprazole 40 MG 10/11/2019 12:00:00 AM EDT active Omeprazo le 40 MG eCW1 (Formerly [facility]) Omeprazole 40 MG Delayed Release Oral Capsule Omeprazole 40 MG 10/11/2019 12:00:00 AM EDT active Omeprazo le 40 MG eCW1 (Formerly [facility]) Albuterol Sulfate HFA 108 (90 Base) MCG/ ACT Inhalation Aerosol Solution (PROVENTIL HFA;VENTOLIN HFA) 9568-8523-07 09/28/2019 12:00:00 AM EDT active [facility] tizanidine 2 MG Oral Tablet tiZANidine HCl 2 MG Oral T ablet (ZANAFLEX) tiZANidine HCl 2 MG Oral Tablet (ZANAFLEX) 09/27/2019 12:00:00 AM EDT active [facility] Doxepin Hydrochloride 25 MG Oral Capsule Doxepin HCl 25 MG Oral Capsule (SINEQUAN) Doxepin HCl 25 MG Oral Capsule (SINEQUAN) 09/22/2019 12:00:0 0 AM EDT active TAKE 1 CAPSULE B Y MOUTH ONCE DAILY AT BEDTIME FOR 30 DAYS [facility] Propranolol Hydrochloride 10 MG Oral Tab let Propranolol HCl 10 MG Oral Tablet (INDERAL) Propranolol HCl 10 MG Oral Tablet (INDERAL) 09/20/2019 12:00:00 AM EDT active [facility] Acetaminophen 325 MG / Hydrocodone Katharina trate 10 MG Oral Tablet Hydrocodone- Acetaminophen 10-325 MG Hydrocodone-Acetaminophen 10-325 MG 09/15/2019 12:00:0 0 AM EDT active 1 tablet as neede d eCW1 (Formerly [facility]) Nystatin 118232 UNT/ML Topical Cream Nystatin 053798 U NIT/GM Nystatin 753954 UNIT/GM 09/07/2019 12:00:00 AM EST 1.0 {application} active Nystatin 589974 UNIT/GM eCW1 (Formerly [facility]) tizanidine 4 MG Oral Tablet Tizanidine HCl 4 MG Tizanidine H Cl 4 MG 09/07/2019 12:00:00 AM EST 1.0 {tablet_as_needed} suspended Tizanidine HCl 4 MG eCW1 (Formerly [facility]) tizanidine 4 MG Oral Tablet Tizanidine HCl 4 MG Tizanidine H Cl 4 MG 09/07/2019 12:00:00 AM EST 1.0 {tablet_as_needed} suspended Tizanidine HCl 4 MG eCW1 (Formerly [facility]) Nystatin 533175 UNT/ML Topical Cream Nystatin 516302 U NIT/GM Nystatin 390377 UNIT/GM 09/07/2019 12:00:00 AM EST active 1 application eCW1 (Formerly [facility]) tizanidine 4 MG Oral Tablet Tizanidine HCl 4 MG Tizanidine H Cl 4 MG 09/07/2019 12:00:00 AM EST 1.0 {tablet_as_needed} suspended Tizanidine HCl 4 MG eCW1 (Formerly [facility]) tizanidine 4 MG Oral Tablet Tizanidine HCl 4 MG Tizanidine H Cl 4 MG 09/07/2019 12:00:00 AM EST 1.0 {tablet_as_needed} suspended Tizanidine HCl 4 MG eCW1 (Formerly [facility]) Nystatin 896700 UNT/ML Topical Cream Nystatin 705042 U NIT/GM Nystatin 876087 UNIT/GM 09/07/2019 12:00:00 AM EST 1.0 {application} active Nystatin 799316 UNIT/GM eCW1 (Formerly [facility]) Nystatin 786071 UNT/ML Topical Cream Nystatin 728393 U NIT/GM Nystatin 099523 UNIT/GM 09/07/2019 12:00:00 AM EST 1.0 {application} active Nystatin 585576 UNIT/GM eCW1 (Formerly [facility]) tizanidine 2 MG Oral Tablet Tizanidine HCl 2 MG Tizanidine H Cl 2 MG 09/07/2019 12:00:00 AM EST 1.0 {tablet_as_needed} active Tizanidine HCl 2 MG eCW1 (Formerly [facility]) tizanidine 4 MG Oral Tablet Tizanidine HCl 4 MG Tizanidine H Cl 4 MG 09/07/2019 12:00:00 AM EST 1.0 {tablet_as_needed} active Tizanidine HCl 4 MG eCW1 (Formerly [facility]) tizanidine 4 MG Oral Tablet Tizanidine HCl 4 MG Tizanidine H Cl 4 MG 09/07/2019 12:00:00 AM EST 1.0 {tablet_as_needed} suspended Tizanidine HCl 4 MG eCW1 (Formerly [facility]) Nystatin 585980 UNT/ML Topical Cream Nystatin 584619 U NIT/GM Nystatin 643522 UNIT/GM 09/07/2019 12:00:00 AM EST 1.0 {application} active Nystatin 997625 UNIT/GM eCW1 (Formerly [facility]) tizanidine 4 MG Oral Tablet Tizanidine HCl 4 MG Tizanidine H Cl 4 MG 09/07/2019 12:00:00 AM EST 1.0 {tablet_as_needed} active Tizanidine HCl 4 MG eCW1 (Formerly [facility]) tizanidine 2 MG Oral Tablet Tizanidine HCl 2 MG Tizanidine H Cl 2 MG 09/07/2019 12:00:00 AM EST 1.0 {tablet_as_needed} active Tizanidine HCl 2 MG eCW1 (Formerly [facility]) tizanidine 2 MG Oral Tablet Tizanidine HCl 2 MG Tizanidine H Cl 2 MG 09/07/2019 12:00:00 AM EST active 1 tablet as needed eCW1 (Formerly [facility]) tizanidine 4 MG Oral Tablet Tizanidine HCl 4 MG Tizanidine H Cl 4 MG 09/07/2019 12:00:00 AM EST 1.0 {tablet_as_needed} active Tizanidine HCl 4 MG eCW1 (Formerly [facility]) tizanidine 2 MG Oral Tablet Tizanidine HCl 2 MG Tizanidine H Cl 2 MG 09/07/2019 12:00:00 AM EST 1.0 {tablet_as_needed} active Tizanidine HCl 2 MG eCW1 (Formerly [facility]) tizanidine 4 MG Oral Tablet Tizanidine HCl 4 MG Tizanidine H Cl 4 MG 09/07/2019 12:00:00 AM EST 1.0 {tablet_as_needed} active Tizanidine HCl 4 MG eCW1 (Formerly [facility]) tizanidine 2 MG Oral Tablet Tizanidine HCl 2 MG Tizanidine H Cl 2 MG 09/07/2019 12:00:00 AM EST 1.0 {tablet_as_needed} active Tizanidine HCl 2 MG eCW1 (Formerly [facility]) Nystatin 949927 UNT/ML Topical Cream Nystatin 888514 U NIT/GM Nystatin 789797 UNIT/GM 09/07/2019 12:00:00 AM EST 1.0 {application} active Nystatin 591728 UNIT/GM eCW1 (Formerly [facility]) tizanidine 2 MG Oral Tablet Tizanidine HCl 2 MG Tizanidine H Cl 2 MG 09/07/2019 12:00:00 AM EST active 1 tablet as needed eCW1 (Formerly [facility]) tizanidine 2 MG Oral Tablet Tizanidine HCl 2 MG Tizanidine H Cl 2 MG 09/07/2019 12:00:00 AM EST 1.0 {tablet_as_needed} active Tizanidine HCl 2 MG eCW1 (Formerly [facility]) Potassium Chloride 10 MEQ Extended Relea se Oral Tablet Potassium Chloride ER 10 MEQ Oral Tablet Extended Release (K-DUR) Potassium Chloride ER 10 MEQ Oral Tablet Extended Release (K-DUR) 09/07/2019 12:00:00 AM EST 10 meq O ral active Take 10 mEq by mouth daily With [facility] Prazosin 2 MG Oral Capsule Prazosin HCl 2 MG Prazosin HCl 2 MG 08/26/2019 12:00:00 AM EST 1.0 {capsule_at_bedtime} active Prazosin HCl 2 MG eCW1 (Formerly [facility]) Prazosin 2 MG Oral Capsule Prazosin HCl 2 MG Prazosin HCl 2 MG 08/26/2019 12:00:00 AM EST 1.0 {capsule_at_bedtime} active Prazosin HCl 2 MG eCW1 (Formerly [facility]) Prazosin 2 MG Oral Capsule Prazosin HCl 2 MG Prazosin HCl 2 MG 08/26/2019 12:00:00 AM EST active 1 capsul e at bedtime eCW1 (Formerly [facility]) Prazosin 2 MG Oral Capsule Prazosin HCl 2 MG Prazosin HCl 2 MG 08/26/2019 12:00:00 AM EST active 1 capsul [address] at bedtime [facility] (Formerly [facility]) Prazosin 2 MG Oral Capsule Prazosin HCl 2 MG Prazosin HCl 2 MG 08/26/2019 12:00:00 AM EST 2.0 {capsule_at_bedtime} active Prazosin HCl 2 MG eCW1 (Formerly [facility]) Prazosin 2 MG Oral Capsule Prazosin HCl 2 MG Prazosin HCl 2 MG 08/26/2019 12:00:00 AM EST 2.0 {capsule_at_bedtime} active Prazosin HCl 2 MG eCW1 (Formerly [facility]) Prazosin 2 MG Oral Capsule Prazosin HCl 2 MG Prazosin HCl 2 MG 08/26/2019 12:00:00 AM EST 1.0 {capsule_at_bedtime} active Prazosin HCl 2 MG eCW1 (Formerly [facility]) Prazosin 2 MG Oral Capsule Prazosin HCl 2 MG Prazosin HCl 2 MG 08/26/2019 12:00:00 AM EST 1.0 {capsule_at_bedtime} active Prazosin HCl 2 MG eCW1 (Formerly [facility]) Prazosin 2 MG Oral Capsule Prazosin HCl 2 MG Prazosin HCl 2 MG 08/26/2019 12:00:00 AM EST 2.0 {capsule_at_bedtime} active Prazosin HCl 2 MG eCW1 (Formerly [facility]) Prazosin 2 MG Oral Capsule Prazosin HCl 2 MG Prazosin HCl 2 MG 08/26/2019 12:00:00 AM EST 2.0 {capsule_at_bedtime} active Prazosin HCl 2 MG eCW1 (Formerly [facility]) Prazosin 2 MG Oral Capsule Prazosin HCl 2 MG Prazosin HCl 2 MG 08/26/2019 12:00:00 AM EST 2.0 {capsule_at_bedtime} active Prazosin HCl 2 MG eCW1 (Formerly [facility]) Prazosin 2 MG Oral Capsule Prazosin HCl 2 MG Prazosin HCl 2 MG 08/26/2019 12:00:00 AM EST 2.0 {capsule_at_bedtime} active Prazosin HCl 2 MG eCW1 (Formerly [facility]) Prazosin 2 MG Oral Capsule Prazosin HCl 2 MG Prazosin HCl 2 MG 08/26/2019 12:00:00 AM EST 2.0 {capsule_at_bedtime} active Prazosin HCl 2 MG eCW1 (Formerly [facility]) Prazosin 2 MG Oral Capsule Prazosin HCl 2 MG Prazosin HCl 2 MG 08/26/2019 12:00:00 AM EST 2.0 {capsule_at_bedtime} active Prazosin HCl 2 MG eCW1 (Formerly [facility]) Prazosin 2 MG Oral Capsule Prazosin HCl 2 MG Prazosin HCl 2 MG 08/26/2019 12:00:00 AM EST 2.0 {capsule_at_bedtime} active Prazosin HCl 2 MG eCW1 (Formerly [facility]) Prazosin 2 MG Oral Capsule Prazosin HCl 2 MG Prazosin HCl 2 MG 08/26/2019 12:00:00 AM EST 1.0 {capsule_at_bedtime} active Prazosin HCl 2 MG eCW1 (Formerly [facility]) Prazosin 2 MG Oral Capsule Prazosin HCl 2 MG Prazosin HCl 2 MG 08/26/2019 12:00:00 AM EST 2.0 {capsule_at_bedtime} active Prazosin HCl 2 MG eCW1 (Formerly [facility]) Prazosin 2 MG Oral Capsule Prazosin HCl 2 MG Prazosin HCl 2 MG 08/26/2019 12:00:00 AM EST 2.0 {capsule_at_bedtime} active Prazosin HCl 2 MG eCW1 (Formerly [facility]) Prazosin 2 MG Oral Capsule Prazosin HCl 2 MG Prazosin HCl 2 MG 08/26/2019 12:00:00 AM EST active 1 capsul e at bedtime eCW1 (Formerly [facility]) Acetaminophen 325 MG / Hydrocodone Katharina trate 10 MG Oral Tablet Hydrocodone- Acetaminophen 10-325 MG Hydrocodone-Acetaminophen 10-325 MG 08/17/2019 12:00:0 0 AM EST active 1 tablet as neede d eCW1 (Formerly [facility]) Acetaminophen 325 MG / Hydrocodone Katharina trate 10 MG Oral Tablet Hydrocodone- Acetaminophen 10-325 MG Hydrocodone-Acetaminophen 10-325 MG 08/17/2019 12:00:0 0 AM EST active 1 tablet as neede d eCW1 (Formerly [facility]) Omeprazole 40 MG Delayed Release Oral Ca psule Omeprazole 40 MG Oral Capsule Delayed Release (PRILOSEC) Omeprazole 40 MG Oral Capsule Delayed Re lease (PRILOSEC) 08/06/2019 12:00:00 AM EST 40 mg Oral active Take 40 mg by mouth daily [facility] Acetaminophen 325 MG / Hydrocodone Katharina trate 10 MG Oral Tablet Hydrocodone- Acetaminophen 10-325 MG Hydrocodone-Acetaminophen 10-325 MG 07/14/2019 12:00:0 0 AM EST active 1 tablet as neede d eCW1 (Formerly [facility]) Alprazolam 1 MG Oral Tablet Alprazolam 1 MG 06/21/2019 12:00:00 AM EST 1.0 {tablet} active Alprazolam 1 MG eCW1 ([facility]) Alprazolam 1 MG Oral Tablet Alprazolam 1 MG 06/21/2019 12:00:00 AM EST 1.0 {tablet} active Alprazolam 1 MG eCW1 ([facility]) Alprazolam 1 MG Oral Tablet Alprazolam 1 MG 06/21/2019 12:00:00 AM EST 1.0 {tablet} active Alprazolam 1 MG eCW1 ([facility]) Alprazolam 1 MG Oral Tablet Alprazolam 1 MG 06/21/2019 12:00:00 AM EST active 1 tablet eCW1 (Formerly [facility]) Alprazolam 1 MG Oral Tablet Alprazolam 1 MG 06/21/2019 12:00:00 AM EST 1.0 {tablet} active Alprazolam 1 MG eCW1 ([facility]) Alprazolam 1 MG Oral Tablet Alprazolam 1 MG 06/21/2019 12:00:00 AM EST active 1 tablet eCW1 (Formerly [facility]) Alprazolam 1 MG Oral Tablet Alprazolam 1 MG 06/21/2019 12:00:00 AM EST active 1 tablet eCW1 (Formerly [facility]) Alprazolam 1 MG Oral Tablet Alprazolam 1 MG 06/21/2019 12:00:00 AM EST 1.0 {tablet} active Alprazolam 1 MG eCW1 ([facility]) Acetaminophen 325 MG / Hydrocodone Katharina trate 10 MG Oral Tablet Hydrocodone- Acetaminophen 10-325 MG Hydrocodone-Acetaminophen 10-325 MG 06/17/2019 12:00:0 0 AM EST active 1 tablet as neede d eCW1 (Formerly [facility]) Levothyroxine Sodium 0.175 MG Oral Tablet Levothyroxin e Sodium 175 MCG Levothyroxine Sodium 175 MCG 06/10/2019 12:00:00 AM EST active 1 tablet in the morning on an empty stomach eCW1 (Formerly [facility]) Levothyroxine Sodium 0.175 MG Oral Tablet Levothyroxin e Sodium 175 MCG Levothyroxine Sodium 175 MCG 06/10/2019 12:00:00 AM EST active Levothyroxine Sodium 175 MCG eCW1 (Formerly [facility]) Levothyroxine Sodium 0.175 MG Oral Tablet Levothyroxin e Sodium 175 MCG Levothyroxine Sodium 175 MCG 06/10/2019 12:00:00 AM EST active Levothyroxine Sodium 175 MCG eCW1 (Formerly [facility]) Levothyroxine Sodium 0.175 MG Oral Tablet Levothyroxin e Sodium 175 MCG Levothyroxine Sodium 175 MCG 06/10/2019 12:00:00 AM EST active 1 tablet in the morning on an empty stomach eCW1 (Formerly [facility]) Levothyroxine Sodium 0.175 MG Oral Tablet Levothyroxin e Sodium 175 MCG Levothyroxine Sodium 175 MCG 06/10/2019 12:00:00 AM EST active Levothyroxine Sodium 175 MCG eCW1 (Formerly [facility]) Levothyroxine Sodium 0.175 MG Oral Tablet Levothyroxin e Sodium 175 MCG Levothyroxine Sodium 175 MCG 06/10/2019 12:00:00 AM EST active Levothyroxine Sodium 175 MCG eCW1 (Formerly [facility]) Levothyroxine Sodium 0.175 MG Oral Tablet Levothyroxin e Sodium 175 MCG Levothyroxine Sodium 175 MCG 06/10/2019 12:00:00 AM EST active Levothyroxine Sodium 175 MCG [email or web address] (Formerly [facility]) Levothyroxine Sodium 0.175 MG Oral Tablet Levothyroxin e Sodium 175 MCG Levothyroxine Sodium 175 MCG 06/10/2019 12:00:00 AM EST active Levothyroxine Sodium 175 MCG [email or web address] (Formerly [facility]) Levothyroxine Sodium 0.175 MG Oral Tablet Levothyroxin e Sodium 175 MCG Levothyroxine Sodium 175 MCG 06/10/2019 12:00:00 AM EST active Levothyroxine Sodium 175 MCG eCW1 (Formerly [facility]) Levothyroxine Sodium 0.175 MG Oral Tablet Levothyroxin e Sodium 175 MCG Levothyroxine Sodium 175 MCG 06/10/2019 12:00:00 AM EST active Levothyroxine Sodium 175 MCG eCW1 (Formerly [facility]) Levofloxacin 750 MG Oral Tablet [Levaquin] Levaquin 750 MG L evaquin 750 MG 06/10/2019 12:00:00 AM EST active 1 tablet eCW1 (Formerly [facility]) Levothyroxine Sodium 0.175 MG Oral Tablet Levothyroxin e Sodium 175 MCG Levothyroxine Sodium 175 MCG 06/10/2019 12:00:00 AM EST active Levothyroxine Sodium 175 MCG eCW1 (Formerly [facility]) Levothyroxine Sodium 0.175 MG Oral Tablet Levothyroxin e Sodium 175 MCG Levothyroxine Sodium 175 MCG 06/10/2019 12:00:00 AM EST active Levothyroxine Sodium 175 MCG eCW1 (Formerly [facility]) Levothyroxine Sodium 0.175 MG Oral Tablet Levothyroxin e Sodium 175 MCG Levothyroxine Sodium 175 MCG 06/10/2019 12:00:00 AM EST active Levothyroxine Sodium 175 MCG eCW1 (Formerly [facility]) Levothyroxine Sodium 0.175 MG Oral Tablet Levothyroxin e Sodium 175 MCG Levothyroxine Sodium 175 MCG 06/10/2019 12:00:00 AM EST active 1 tablet in the morning on an empty stomach eCW1 (Formerly [facility]) Levothyroxine Sodium 0.175 MG Oral Tablet Levothyroxin e Sodium 175 MCG Levothyroxine Sodium 175 MCG 06/10/2019 12:00:00 AM EST active Levothyroxine Sodium 175 MCG eCW1 (Formerly [facility]) Levothyroxine Sodium 0.175 MG Oral Tablet Levothyroxin e Sodium 175 MCG Levothyroxine Sodium 175 MCG 06/10/2019 12:00:00 AM EST active Levothyroxine Sodium 175 MCG eCW1 (Formerly [facility]) Levothyroxine Sodium 0.175 MG Oral Tablet Levothyroxin e Sodium 175 MCG Levothyroxine Sodium 175 MCG 06/10/2019 12:00:00 AM EST active Levothyroxine Sodium 175 MCG eCW1 (Formerly [facility]) Levothyroxine Sodium 0.175 MG Oral Tablet Levothyroxin e Sodium 175 MCG Levothyroxine Sodium 175 MCG 06/10/2019 12:00:00 AM EST active Levothyroxine Sodium 175 MCG eCW1 (Formerly [facility]) Levothyroxine Sodium 0.175 MG Oral Tablet Levothyroxin e Sodium 175 MCG Levothyroxine Sodium 175 MCG 06/10/2019 12:00:00 AM EST active 1 tablet in the morning on an empty stomach eCW1 (Formerly [facility]) Levothyroxine Sodium 0.175 MG Oral Tablet Levothyroxin e Sodium 175 MCG Levothyroxine Sodium 175 MCG 06/10/2019 12:00:00 AM EST active Levothyroxine Sodium 175 MCG eCW1 (Formerly [facility]) Metronidazole 500 MG Oral Tablet Metronidazole 500 MG 2018 12:00:00 AM EST active 1 tablet eCW1 (Formerly [facility]) Ranitidine 300 MG Oral Tablet ranitidine (ZANTAC) 300 MG tablet ranitidine (ZANTAC) 300 MG tablet 01/13/2019 12:00:00 AM EDT 300 mg Oral aborted Take 300 mg by mouth daily [facility] Insurance Providers Payer name Policy type / Coverage type Policy ID Covered green party ID Covered green party's relationship to santos Policy [place] Plan Information AETNA MEDICARE [id number] SP [id number] PROGRESSIVE CO NO FAULT [id number] SP [id number] AETNA MEDICARE MEBQVCJC SP MEBQV CJC [employer]ET [employer] MEBQVCJC S MEB QVCJC NO FAULT O [id number] O [id number] PROGRESSIVE [place] NO FAULT [id number] SP [id number] AETNA MEDICARE MEBQVCJC SP MEBQV CJC PROGRESSIVE [place] NO FAULT [id number] SP [id number] AETNA MEDICARE COMPLETE G MEBQVCJC Self MEBQVCJC [facility] [id number] SP [id number] AETNA [employer] MEBQVCJC S MEB QVCJC [employer] MEBQVCJC S MEB Q[place]JC [place] [facility] [facility] [id number] S [id number] [id number] [id number] [id number] [id number] AETNA MEDICARE O MEBQVCJC S MEBQV CJC AETNA MEDICARE COMPLETE G MEBQVCJC Self MEBQVCJC [place] MEDICARE COMPLETE G MEBQVCKJC Self MEBQVCKJC AETNA MEDICARE COMPLETE G MEBQVCJC Self MEBQVCJC A[place] MEDICARE O MEBQVCJC S MEBQV CJC AETNA MEDICARE MEBQVCJC SP MEBQV CJC AET[place] MEDICARE COMPLETE G MEBQVCJC Self MEBQVCJC MEDICARE A [id number] Self [id number] Aetna Medicare F MEBQVCJC SELF MEBQV [facility] MEDICAID M [id number] Self [id number] MEDICARE A [id number] Self [id number] ANSI-Medicare Part B [id number] ANSI-Medicare Part B [id number] ANSI-Medicaid [id number] ANSI-Commercial [id number]-[id number]-[id number] ANSI-Medicare Part B [id number] Aetna Medicare F MEBQVCJC SELF MEBQV [facility] ANSI-Medicare Part B [id number] ANSI-Medicare Part B [id number] ANSI-Medicare Part B [id number] ANSI-Commercial [id number]-ae35-46nu-[id number]-xb68-47ft-[id number] ANSI-Medicaid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 [facility]) Fluconazole 150 MG Oral Tablet 12/07/2019 12:00:00 AM EDT eCW1 (Formerly [facility]) Fluconazole 150 MG Oral Tablet 12/07/2019 12:00:00 AM EDT eCW1 (Formerly [facility]) Fluconazole 150 MG Oral Tablet 12/07/2019 12:00:00 AM EDT eCW1 (Formerly [facility]) Fluconazole 150 MG Oral Tablet 12/07/2019 12:00:00 AM EDT eCW1 (Formerly [facility]) Fluconazole 150 MG Oral Tablet 12/07/2019 12:00:00 AM EDT eCW1 (Formerly [facility]) Fluconazole 150 MG Oral Tablet 12/07/2019 12:00:00 AM EDT eCW1 (Formerly [facility]) Acetaminophen 325 MG / Hydrocodone Bitartrate 10 MG Or al Tablet 11/09/2019 12:00:00 AM EDT eCW1 (Formerly [facility], [facility]) Omeprazole 40 MG Delayed Release Oral Capsule 10/11/2019 12:00:00 A M EDT eCW1 (Formerly [facility]) Omeprazole 40 MG Delayed Release Oral Capsule 10/11/2019 12:00:00 A M EDT eCW1 (Formerly [facility]) Omeprazole 40 MG Delayed Release Oral Capsule 10/11/2019 12:00:00 A M EDT eCW1 (Formerly [facility]) Omeprazole 40 MG Delayed Release Oral Capsule 10/11/2019 12:00:00 A M EDT eCW1 (Formerly [facility]) Omeprazole 40 MG Delayed Release Oral Capsule 10/11/2019 12:00:00 A M EDT eCW1 (Formerly [facility]) Omeprazole 40 MG Delayed Release Oral Capsule 10/11/2019 12:00:00 A M EDT eCW1 (Formerly [facility]) Omeprazole 40 MG Delayed Release Oral Capsule 10/11/2019 12:00:00 A M EDT eCW1 (Formerly [facility]) Albuterol Sulfate HFA 108 (90 Base) MCG/ ACT Inhalation Aerosol Solution (PROVENTIL HFA;VENTOLIN HFA) 09/28/2019 12:00:00 AM [facility] 2 MG Oral Tablet 09/27/2019 12:00:00 AM [facility] Doxepin Hydrochloride 25 MG Oral Capsule 09/22/2019 12:00:00 AM [facility] Propranolol Hydrochloride 10 MG Oral Tablet 09/20/2019 12:00:00 AM [facility] Acetaminophen 325 MG / Hydrocodone Bitartrate 10 MG Or al Tablet 09/15/2019 12:00:00 AM EDT eCW1 (Formerly [facility], [facility]) Potassium Chloride 10 MEQ Extended Release Oral Tablet 09/07/2019 12:00:00 AM [facility] ospital tizanidine 2 MG Oral Tablet 09/07/2019 12:00:00 AM EST eCW1 (Formerly [facility]) Nystatin [id number] UNT/ML Topical Cream 09/07/2019 12:00:00 AM EST eCW1 (Formerly [facility]) tizanidine 2 MG Oral Tablet 09/07/2019 12:00:00 AM EST eCW1 (Formerly [facility]) Prazosin 2 MG Oral Capsule 08/26/2019 12:00:00 AM EST eCW1 (Formerly [facility]) Prazosin 2 MG Oral Capsule 08/26/2019 12:00:00 AM EST eCW1 (Formerly [facility]) Prazosin 2 MG Oral Capsule 08/26/2019 12:00:00 AM EST eCW1 (Formerly [facility]) Prazosin 2 MG Oral Capsule 08/26/2019 12:00:00 AM EST eCW1 (Formerly [facility]) Acetaminophen 325 MG / Hydrocodone Bitartrate 10 MG Or al Tablet 08/17/2019 12:00:00 AM EST eCW1 (Formerly [facility], [facility]) Omeprazole 40 MG Delayed Release Oral Capsule 08/06/2019 12:00:00 A M [facility] Acetaminophen 325 MG / Hydrocodone Bitartrate 10 MG Or al Tablet 07/14/2019 12:00:00 AM EST eCW1 (Formerly [facility], [facility]) Alprazolam 1 MG Oral Tablet 06/21/2019 12:00:00 AM EST eCW1 (Formerly [facility]) Acetaminophen 325 MG / Hydrocodone Bitartrate 10 MG Or al Tablet 06/17/2019 12:00:00 AM EST eCW1 (Formerly [facility], [facility]) Levothyroxine Sodium 0.175 MG Oral Tablet 06/10/2019 12:00:00 AM ES T eCW1 (Formerly [facility]) Levothyroxine Sodium 0.175 MG Oral Tablet 06/10/2019 12:00:00 AM ES T eCW1 (Formerly [facility]) Levothyroxine Sodium 0.175 MG Oral Tablet 06/10/2019 12:00:00 AM ES T eCW1 (Formerly [facility]) Levothyroxine Sodium 0.175 MG Oral Tablet 06/10/2019 12:00:00 AM ES T eCW1 (Formerly [facility]) Levofloxacin 750 MG Oral Tablet [Levaquin] 06/10/2019 12:00:[address] eCW1 (Formerly [facility]) Metronidazole 500 MG Oral Tablet 06/10/2019 12:00:00 AM EST eCW1 (Formerly [facility]) Ranitidine 300 MG Oral Tablet 01/13/2019 12:00:00 AM [facility]
[2020-07-24 11:10] VITALS: BP 141/86
== END 2020-07-24 11:13 | disposition home or self-care (01) ==
LOC: M ED 08:49
DX: S83.92XA Sprain of unspecified site of left knee, initial encounter (principal); S73.102A Unspecified sprain of left hip, initial encounter; Y92.9 Unspecified place or not applicable; Y93.9 Activity, unspecified; Y99.9 Unspecified external cause status; W00.1XXA Fall from stairs and steps due to ice and snow, initial encounter; K21.9 Gastro-esophageal reflux disease without esophagitis; Z79.891 Long term (current) use of opiate analgesic; Z79.899 Other long term (current) drug therapy; Z88.0 Allergy status to penicillin; Z88.8 Allergy status to other drugs, medicaments and biological substances; Z91.041 Radiographic dye allergy status
CPT/HCPCS: 73502; 73564; 96372; 99284; J2270

== ENCOUNTER → 2020-08-02 | Outpatient (REF) | payer OTHER ==
[~2020-08-02] MED LIST changes: +HYDR-3719; +MIRT-60; +MIRTAZAPINE; +PARO25TA4; +POTA1TAB23; +PRAZ2CAP
[2020-08-02 12:06] LABS: BLOOD UREA NITROGEN 9 MG/DL (7-18); CARBON DIOXIDE LEVEL 31 MEQ/L (21-32); CHLORIDE LEVEL 108 MEQ/L (98-107); CREATININE FOR GFR 0.78 MG/DL (0.55-1.30); GLOMERULAR FILTRATION RATE > 60.0 (>58); GLUCOSE, FASTING 77 MG/DL (70-100); MAGNESIUM LEVEL 2.2 MG/DL (1.8-2.4); POTASSIUM SERUM 4.1 MEQ/L (3.5-5.1); SODIUM LEVEL 143 MEQ/L (136-145)
== END ==
LOC: M SFHCCLAY 08:14
PROVIDERS: ATTEND Family Medicine
DX: M79.10 Myalgia, unspecified site (principal)

== ENCOUNTER 2020-08-10 10:58 | Emergency (ER) | payer MEDICARE, OTHER ==
[~2020-08-10] VITALS: Ht 162.6 cm; Wt 100.3 kg
[~2020-08-10 10:58] MED LIST changes: -MIRT-60
[2020-08-10] MEDS ORDERED: MIRT-60 (11:31)
--- NOTE | 2020-08-10 12:51 | REP ---
INDICATION: fall injury COMPARISON: None. TECHNIQUE: Two views right forearm. 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 IMPRESSION: No fracture or dislocation. <Electronically signed by Hector Taylor > 08/10/20 [id number]
--- NOTE | 2020-08-10 14:13 | REP ---
INDICATION: fall ro compression fracture, vertebral tenderness. COMPARISON: Comparison radiograph March 31, 2015.. TECHNIQUE: Five views. FINDINGS: Five views of the lumbar spine show preserved vertebral body heights and normal alignment. No fracture or collapse is seen. There is mild degenerative disc narrowing at L4-5 and L3-4 with early spurring at these 2 levels unchanged. Pedicles and posterior elements are intact. There is mild facet hypertrophy at L5-S1 bilaterally. Psoas margins are symmetric. No sacral fracture is seen. IMPRESSION: Mild degenerative spondylosis changes. No fracture noted. <Electronically signed by Bhavin So > 08/10/20 [id number]
[2020-08-10 14:28] VITALS: BP 141/46
== END 2020-08-10 14:35 | disposition home or self-care (01) ==
LOC: M ED 10:58
DX: M54.9 Dorsalgia, unspecified (principal); W19.XXXA Unspecified fall, initial encounter; Y92.099 Unspecified place in other non-institutional residence as the place of occurrence of the external cause; Y93.89 Activity, other specified; Y99.9 Unspecified external cause status; Z79.899 Other long term (current) drug therapy; Z91.041 Radiographic dye allergy status; Z88.0 Allergy status to penicillin; Z88.8 Allergy status to other drugs, medicaments and biological substances

== ENCOUNTER → 2020-08-24 | Outpatient (CLI) | payer MEDICARE, OTHER ==
[~2020-08-24] MED LIST changes: +BUPR150T12 PO; -BUPR150T4 PO; +MIRT-60
--- NOTE | 2020-08-25 08:07 | REP ---
INDICATION: LT SHOULDER ANTERIOR PAIN. COMPARISON: Comparison left shoulder radiographs are from 09 May 2020.. TECHNIQUE: Axial, oblique coronal, and oblique sagittal imaging planes utilized. T1 and T2 weighted scans are obtained with and without fat saturation. FINDINGS: Cortical and medullary bone signal intensity are normal. Glenohumeral and acromioclavicular joints are normally aligned. There is a small of amount of glenohumeral joint fluid. There is a sliver of subacromial subdeltoid bursal effusion as well. AC joint osteoarthritic hypertrophy is present mild in degree. The biceps and infraspinatus tendons appear intact. There is mild tendinosis in the distal subscapularis tendon and advanced tendinosis changes are seen in the supraspinatus tendon with swelling and increased signal intensity on T1 and T2 weighted scans. No focal T2 hyperintensity is seen to suggest a full-thickness tear. There is intrasubstance synovial surface it T2 signal in the distal supraspinatus tendon near its insertion suggesting a partial cuff lesion. Superior labral cartilage appears intact. No evidence of anterior or posterior labral tear is appreciated. Exam is otherwise unremarkable. IMPRESSION: Moderate tendinosis in the supraspinatus tendon, partial-thickness supraspinatus tear synovial surface near its distal insertion. Mild tendinosis in the distal subscapularis tendon. Subacromial subdeltoid bursal fluid and mild AC joint osteoarthritic hypertrophy. <Electronically signed by Bhavin So > 08/25/20 [id number]
== END ==
LOC: M RAD 18:12
PROVIDERS: ATTEND Family Medicine
DX: M75.32 Calcific tendinitis of left shoulder (principal); M19.012 Primary osteoarthritis, left shoulder

== ENCOUNTER → 2020-09-15 | Outpatient (CLI) | payer MEDICARE | LOC: M LABSMTC 12:15 | PROVIDERS: ATTEND Family Medicine | DX: Z11.52 Encounter for screening for COVID-19 (principal) | CPT/HCPCS: C9803; U0003 ==

== ENCOUNTER → 2020-09-21 | Outpatient (REF) | payer MEDICARE ==
[2020-09-21 16:21] LABS: BASO # 0.1 10^3/uL (0.0-0.2); BASO % 0.8 % (0.0-1.0); EOS # 0.2 10^3/uL (0.0-0.5); EOS % 2.7 % (0.0-3.0); HEMATOCRIT 43.9 % (36.0-47.0); HEMOGLOBIN 13.7 g/dl (12.0-15.5); LYMPH # 2.1 10^3/uL (1.5-5.0); LYMPH % 28.4 % (24.0-44.0); MEAN CORPUSCULAR HGB CONC 31.2 g/dl (32.0-36.5); MEAN CORPUSCULAR VOLUME 89.6 fl (80.0-96.0); MONO # 0.5 10^3/uL (0.0-0.8); MONO % 6.2 % (2.0-8.0); NEUTROPHILS # 4.6 10^3/uL (1.5-8.5); NEUTROPHILS % 61.5 % (36.0-66.0); PLATELET COUNT, AUTOMATED 350 10^3/uL (150-450); WHITE BLOOD COUNT 7.4 10^3/uL (4.0-10.0)
[2020-09-21 16:41] LABS: FREE T4 1.18 NG/DL (0.76-1.46); THYROID STIMULATING HORMONE 0.669 uIU/ML (0.358-3.740)
== END ==
LOC: M SFHCCLAY 10:02
PROVIDERS: ATTEND Family Medicine
DX: E03.9 Hypothyroidism, unspecified (principal); R53.83 Other fatigue

== ENCOUNTER → 2021-03-28 | Outpatient (CLI) | payer MEDICARE ==
[~2021-03-28] MED LIST changes: +OMEP40CA4; -OMEP40CA97
--- NOTE | 2021-03-28 09:15 | REP ---
INDICATION: RO5 COUGH COMPARISON: 01/22/2020 as well as other prior exams. TECHNIQUE: PA/Lateral FINDINGS: Lungs: Clear, no infiltrate. Heart: Normal in size. Mediastinum: Mediastinal silhouette unremarkable. Pleural angles: Unremarkable.. Bones and soft tissues: There are mild degenerative changes of the spine. IMPRESSION: No acute pulmonary disease. <Electronically signed by Hector Taylor > 03/28/21 [id number]
== END ==
LOC: M CLY 08:52
PROVIDERS: ATTEND Physician Assistant
DX: R05 Cough (principal)

== ENCOUNTER → 2021-03-28 | Outpatient (REF) | payer MEDICARE | LOC: M SFHCCLAY 08:59 | PROVIDERS: ATTEND Physician Assistant | DX: R05 Cough (principal) ==

== ENCOUNTER → 2021-06-07 | Outpatient (CLI) | payer MEDICARE, MEDICAID | LOC: M LABSMTC 09:46 | PROVIDERS: ATTEND Pediatrics | DX: Z20.822 Contact with and (suspected) exposure to COVID-19 (principal) | CPT/HCPCS: C9803; U0003 ==

== ENCOUNTER → 2021-10-15 | Outpatient (REF) | payer MEDICARE ==
[~2021-10-15] MED LIST changes: +ALBU2.5V10 NEB; -ALBU83IN NEB; +PARO25TA11; -PARO25TA4
[2021-10-15 11:38] LABS: HEMOGLOBIN 13.4 g/dl (12.0-15.5); MEAN CORPUSCULAR HEMOGLOBIN 28.8 pg (27.0-33.0); MEAN CORPUSCULAR HGB CONC 32.7 g/dl (32.0-36.5); MEAN CORPUSCULAR VOLUME 88.2 fl (80.0-96.0); PLATELET COUNT, AUTOMATED 337 10^3/uL (150-450); RED BLOOD COUNT 4.65 10^6/uL (4.00-5.40)
[2021-10-15 12:30] LABS: ALBUMIN 3.2 GM/DL (3.2-5.2); ALT/SGPT 33 U/L (12-78); BILIRUBIN,TOTAL 0.4 MG/DL (0.2-1.0); BLOOD UREA NITROGEN 7 MG/DL (7-18); CARBON DIOXIDE LEVEL 28 MEQ/L (21-32); CHLORIDE LEVEL 107 MEQ/L (98-107); CHOLESTEROL LEVEL 154 MG/DL (<200); CHOLESTEROL RISK RATIO 3.666 (<5); CREATININE FOR GFR 0.73 MG/DL (0.55-1.30); GLOMERULAR FILTRATION RATE > 60.0 (>51); GLUCOSE, FASTING 94 MG/DL (70-100); HDL CHOLESTEROL 42 MG/DL (>40); IRON (FE) 103 UG/DL (50-170); LDL CHOLESTEROL 77 MG/DL (<100); NON-HDL-C 112 MG/DL; PERCENT SATURATION 33.8 % (13.2-45.0); POTASSIUM SERUM 3.8 MEQ/L (3.5-5.1); SODIUM LEVEL 142 MEQ/L (136-145); TOTAL 25(OH) VITAMIN D 52.2 NG/ML (30.0-100.0); TOTAL IRON BINDING CAPACITY 305 UG/DL (250-450); TOTAL PROTEIN 6.1 GM/DL (6.4-8.2); TRIGLYCERIDES LEVEL 174 MG/DL (<150); VITAMIN B12 LEVEL > 2000 PG/ML (247-911)
== END ==
LOC: M SFHCCLAY 08:31
PROVIDERS: ATTEND Family Medicine
DX: E03.9 Hypothyroidism, unspecified (principal); Z13.220 Encounter for screening for lipoid disorders; Z13.1 Encounter for screening for diabetes mellitus; Z98.84 Bariatric surgery status; Z79.899 Other long term (current) drug therapy

== ENCOUNTER → 2022-01-24 | Outpatient (REF) | payer MEDICARE ==
[2022-01-24 19:20] LABS: FREE T4 0.73 NG/DL (0.76-1.46); THYROID STIMULATING HORMONE 4.37 uIU/ML (0.358-3.740)
== END ==
LOC: M SFHCCLAY 09:51
PROVIDERS: ATTEND Family Medicine
DX: E03.9 Hypothyroidism, unspecified (principal)

== ENCOUNTER → 2022-06-05 | Outpatient (REF) | payer MEDICARE ==
[2022-06-05 17:46] LABS: HEMATOCRIT 42.2 % (36.0-47.0); HEMOGLOBIN 13.6 g/dl (12.0-15.5); MEAN CORPUSCULAR HEMOGLOBIN 28.6 pg (27.0-33.0); MEAN CORPUSCULAR HGB CONC 32.2 g/dl (32.0-36.5); MEAN CORPUSCULAR VOLUME 88.8 fl (80.0-96.0); PLATELET COUNT, AUTOMATED 336 10^3/uL (150-450); RED BLOOD COUNT 4.75 10^6/uL (4.00-5.40); WHITE BLOOD COUNT 7.6 10^3/uL (4.0-10.0)
[2022-06-05 18:11] LABS: ERYTHROCYTE SEDIMENTATION RATE 15 mm/hr (0-30)
[2022-06-05 22:24] LABS: URIC ACID 5.7 MG/DL (3.1-7.8)
[2022-06-05 22:27] LABS: RHEUMATOID FACTOR QUANT 5.2 IU/ML (<14)
[2022-06-06 05:20] LABS: ALBUMIN 3.7 G/DL (3.2-5.2); ALKALINE PHOSPHATASE 113 U/L (46-116); ALT/SGPT 35 U/L (7.0-40); AST/SGOT 22 U/L (<34); BILIRUBIN,TOTAL 0.3 MG/DL (0.3-1.2); BLOOD UREA NITROGEN 12 MG/DL (9-23); CARBON DIOXIDE LEVEL 26 MMOL/L (20-31); CHLORIDE LEVEL 106 MMOL/L (98-107); CHOLESTEROL LEVEL 168 MG/DL (<200); CHOLESTEROL RISK RATIO 3.32 (<5); CREATININE FOR GFR 0.79 MG/DL (0.55-1.30); GLOMERULAR FILTRATION RATE > 60.0 (>51); GLUCOSE, FASTING 85 MG/DL (60-100); HDL CHOLESTEROL 50.5 MG/DL (>40); LDL CHOLESTEROL 96.1 MG/DL (<100); NON-HDL-C 118 MG/DL; POTASSIUM SERUM 3.8 MMOL/L (3.5-5.1); SODIUM LEVEL 141 MMOL/L (136-145); THYROID STIMULATING HORMONE 4.854 uIU/ML (0.55-4.78); TOTAL PROTEIN 6.7 G/DL (5.7-8.2); TRIGLYCERIDES LEVEL 107 MG/DL (<150)
[2022-06-08 20:08] LABS: CYCLIC CITRULLINATED PEPTIDE 2 units (0-19)
== END ==
LOC: M SFHCCLAY 12:05
PROVIDERS: ATTEND Physician Assistant
DX: M45.9 Ankylosing spondylitis of unspecified sites in spine (principal); R19.7 Diarrhea, unspecified; E03.9 Hypothyroidism, unspecified; Z13.1 Encounter for screening for diabetes mellitus; Z13.220 Encounter for screening for lipoid disorders; M79.7 Fibromyalgia

== ENCOUNTER → 2022-07-09 | Outpatient (REF) | payer MEDICARE ==
[2022-07-09 18:17] LABS: HEMATOCRIT 46.1 % (36.0-47.0); HEMOGLOBIN 14.3 g/dl (12.0-15.5); MEAN CORPUSCULAR HEMOGLOBIN 28.4 pg (27.0-33.0); MEAN CORPUSCULAR VOLUME 91.5 fl (80.0-96.0); PLATELET COUNT, AUTOMATED 420 10^3/uL (150-450); RED BLOOD COUNT 5.04 10^6/uL (4.00-5.40); WHITE BLOOD COUNT 8.5 10^3/uL (4.0-10.0)
[2022-07-09 18:42] LABS: MAGNESIUM LEVEL 2.1 MG/DL (1.8-2.4)
[2022-07-09 18:44] LABS: ALBUMIN 3.6 G/DL (3.2-5.2); ALKALINE PHOSPHATASE 109 U/L (46-116); ALT/SGPT 34 U/L (7.0-40); AST/SGOT 28 U/L (<34); BILIRUBIN,TOTAL 0.2 MG/DL (0.3-1.2); BLOOD UREA NITROGEN 8 MG/DL (9-23); CALCIUM LEVEL 9.2 MG/DL (8.5-10.1); CARBON DIOXIDE LEVEL 29 MMOL/L (20-31); CHLORIDE LEVEL 105 MMOL/L (98-107); GLOMERULAR FILTRATION RATE > 60.0 (>51); GLUCOSE, FASTING 77 MG/DL (60-100); POTASSIUM SERUM 4.3 MMOL/L (3.5-5.1); SODIUM LEVEL 141 MMOL/L (136-145); TOTAL PROTEIN 6.9 G/DL (5.7-8.2)
== END ==
LOC: M SFHCCLAY 14:23
PROVIDERS: ATTEND Nurse Practitioner Family
DX: R19.7 Diarrhea, unspecified (principal)

== ENCOUNTER → 2022-07-10 | Outpatient (REF) | payer MEDICARE | LOC: M SFHCCLAY 17:46 | PROVIDERS: ATTEND Nurse Practitioner Family | DX: R19.7 Diarrhea, unspecified (principal) ==

== ENCOUNTER → 2022-07-25 | Outpatient (REF) | payer MEDICARE ==
[2022-07-25 13:01] LABS: BLOOD UREA NITROGEN 8 MG/DL (9-23); CALCIUM LEVEL 9.4 MG/DL (8.5-10.1); CARBON DIOXIDE LEVEL 32 MMOL/L (20-31); CHLORIDE LEVEL 106 MMOL/L (98-107); CREATININE FOR GFR 0.74 MG/DL (0.55-1.30); GLOMERULAR FILTRATION RATE > 60.0 (>51); GLUCOSE, FASTING 85 MG/DL (60-100); POTASSIUM SERUM 4.8 MMOL/L (3.5-5.1); SODIUM LEVEL 144 MMOL/L (136-145)
== END ==
LOC: M SFHCCLAY 09:53
PROVIDERS: ATTEND Nurse Practitioner Family
DX: A04.72 Enterocolitis due to Clostridium difficile, not specified as recurrent (principal)

== ENCOUNTER → 2022-09-12 | Outpatient (CLI) | payer MEDICARE | LOC: M WHC 07:45 | PROVIDERS: ATTEND Nurse Practitioner Family | DX: Z12.31 Encounter for screening mammogram for malignant neoplasm of breast (principal) ==

== ENCOUNTER → 2023-02-07 | Outpatient (REF) | payer MEDICARE ==
[2023-02-07 17:34] LABS: BASO # 0.1 10^3/uL (0.0-0.2); BASO % 0.6 % (0.0-1.0); EOS # 0.2 10^3/uL (0.0-0.5); EOS % 2.4 % (0.0-3.0); HEMATOCRIT 42.3 % (36.0-47.0); HEMOGLOBIN 13.5 g/dl (12.0-15.5); LYMPH # 2.3 10^3/uL (1.5-5.0); LYMPH % 28.6 % (24.0-44.0); MEAN CORPUSCULAR HEMOGLOBIN 28.9 pg (27.0-33.0); MEAN CORPUSCULAR HGB CONC 31.9 g/dl (32.0-36.5); MEAN CORPUSCULAR VOLUME 90.6 fl (80.0-96.0); MONO # 0.6 10^3/uL (0.0-0.8); MONO % 7.7 % (2.0-8.0); NEUTROPHILS # 4.8 10^3/uL (1.5-8.5); NEUTROPHILS % 60.3 % (36.0-66.0); PLATELET COUNT, AUTOMATED 362 10^3/uL (150-450); RED BLOOD COUNT 4.67 10^6/uL (4.00-5.40); WHITE BLOOD COUNT 7.9 10^3/uL (4.0-10.0)
[2023-02-07 18:00] LABS: THYROID STIMULATING HORMONE 6.111 uIU/ML (0.55-4.78)
[2023-02-07 18:01] LABS: ALBUMIN 3.4 G/DL (3.2-5.2); ALKALINE PHOSPHATASE 118 U/L (46-116); ALT/SGPT 35 U/L (7.0-40); AST/SGOT 23 U/L (<34); BILIRUBIN,TOTAL 0.3 MG/DL (0.3-1.2); BLOOD UREA NITROGEN 7 MG/DL (9-23); CALCIUM LEVEL 8.8 MG/DL (8.5-10.1); CARBON DIOXIDE LEVEL 29 MMOL/L (20-31); CHLORIDE LEVEL 106 MMOL/L (98-107); CREATININE FOR GFR 0.69 MG/DL (0.55-1.30); GLOMERULAR FILTRATION RATE > 60.0 (>51); GLUCOSE, FASTING 91 MG/DL (60-100); MAGNESIUM LEVEL 1.9 MG/DL (1.8-2.4); POTASSIUM SERUM 4.1 MMOL/L (3.5-5.1); SODIUM LEVEL 143 MMOL/L (136-145); TOTAL PROTEIN 6.3 G/DL (5.7-8.2)
[2023-02-07 18:42] LABS: HEMOGLOBIN A1c 5.1 % (4.0-6.0)
== END ==
LOC: M SFHCCLAY 13:48
PROVIDERS: ATTEND Physician Assistant
DX: E16.1 Other hypoglycemia (principal); R53.81 Other malaise; F41.9 Anxiety disorder, unspecified; K21.9 Gastro-esophageal reflux disease without esophagitis; R30.0 Dysuria

== ENCOUNTER → 2023-03-12 | Outpatient (REF) | payer MEDICARE, MEDICAID ==
[~2023-03-12] MED LIST changes: +EZET10TA58 PO; -ZETI10TA16 PO
== END ==
LOC: M SFHCCLAY 13:44
PROVIDERS: ATTEND Physician Assistant
DX: R09.81 Nasal congestion (principal)

== ENCOUNTER → 2023-04-17 | Outpatient (CLI) | payer MEDICARE, MEDICAID, OTHER | LOC: M CLY 14:18 | PROVIDERS: ATTEND Nurse Practitioner Family | DX: K59.00 Constipation, unspecified (principal); R07.81 Pleurodynia ==

== ENCOUNTER → 2023-07-29 | Outpatient (REF) | payer OTHER, MEDICAID ==
[2023-07-29 17:33] LABS: BASO # 0.1 10^3/uL (0.0-0.2); EOS # 0.3 10^3/uL (0.0-0.5); EOS % 3.8 % (0.0-3.0); HEMATOCRIT 46.4 % (36.0-47.0); HEMOGLOBIN 14.6 g/dl (12.0-15.5); LYMPH # 2.1 10^3/uL (1.5-5.0); LYMPH % 31.3 % (24.0-44.0); MEAN CORPUSCULAR HEMOGLOBIN 28.5 pg (27.0-33.0); MEAN CORPUSCULAR HGB CONC 31.5 g/dl (32.0-36.5); MEAN CORPUSCULAR VOLUME 90.6 fl (80.0-96.0); MONO # 0.4 10^3/uL (0.0-0.8); MONO % 5.9 % (2.0-8.0); NEUTROPHILS # 3.9 10^3/uL (1.5-8.5); NEUTROPHILS % 57.7 % (36.0-66.0); PLATELET COUNT, AUTOMATED 368 10^3/uL (150-450); RED BLOOD COUNT 5.12 10^6/uL (4.00-5.40); WHITE BLOOD COUNT 6.8 10^3/uL (4.0-10.0)
[2023-07-29 17:54] LABS: PERCENT SATURATION 32.5 % (13.2-45.0); PHOSPHORUS LEVEL 4.1 MG/DL (2.5-4.9)
[2023-07-29 17:55] LABS: TOTAL 25(OH) VITAMIN D 41.1 NG/ML (20.0-100.0)
[2023-07-29 17:56] LABS: FOLATE 23.64 NG/ML (>5.4)
[2023-07-29 18:12] LABS: ERYTHROCYTE SEDIMENTATION RATE 30 mm/hr (0-30)
[2023-07-29 18:44] LABS: C REACTIVE PROTEIN QUANTITATIV 0.5 MG/DL (<1.0)
== END ==
LOC: M SFHCRHEU 14:29
PROVIDERS: ATTEND Internal Medicine
DX: M25.50 Pain in unspecified joint (principal); R53.82 Chronic fatigue, unspecified; Z79.899 Other long term (current) drug therapy

== ENCOUNTER → 2023-08-07 | Outpatient (CLI) | payer OTHER, MEDICAID | LOC: M SLEEP HO 11:37 | PROVIDERS: ATTEND Internal Medicine | DX: R53.82 Chronic fatigue, unspecified (principal); M25.50 Pain in unspecified joint; M70.61 Trochanteric bursitis, right hip; M47.816 Spondylosis without myelopathy or radiculopathy, lumbar region; M47.817 Spondylosis without myelopathy or radiculopathy, lumbosacral region; M47.814 Spondylosis without myelopathy or radiculopathy, thoracic region; R06.83 Snoring | CPT/HCPCS: 72052; 72072; 72114; 73502; G0399 ==

== ENCOUNTER → 2023-08-08 | Outpatient (CLI) | payer OTHER, MEDICAID | LOC: M WHC 08:56 | PROVIDERS: ATTEND Internal Medicine | DX: M85.89 Other specified disorders of bone density and structure, multiple sites (principal); Z78.0 Asymptomatic menopausal state ==

== ENCOUNTER → 2023-11-19 | Outpatient (REF) | payer OTHER, MEDICAID ==
[~2023-11-19] MED LIST changes: -MIRT-60; +MIRT-89
[2023-11-19 18:46] LABS: ALBUMIN 3.5 G/DL (3.2-5.2); ALKALINE PHOSPHATASE 120 U/L (46-116); ALT/SGPT 60 U/L (7.0-40); AST/SGOT 44 U/L (<34); BILIRUBIN,TOTAL 0.4 MG/DL (0.3-1.2); BLOOD UREA NITROGEN < 5 MG/DL (9-23); CALCIUM LEVEL 9.3 MG/DL (8.5-10.1); CARBON DIOXIDE LEVEL 31 MMOL/L (20-31); CHLORIDE LEVEL 105 MMOL/L (98-107); CHOLESTEROL LEVEL 180 MG/DL (<200); CHOLESTEROL RISK RATIO 4.01 (<5); CREATININE FOR GFR 0.75 MG/DL (0.55-1.30); FREE T4 1.22 NG/DL (0.89-1.76); GLOMERULAR FILTRATION RATE > 60.0 (>51); GLUCOSE, FASTING 87 MG/DL (60-100); HDL CHOLESTEROL 44.8 MG/DL (>40); NON-HDL-C 135.2 MG/DL; POTASSIUM SERUM 4.5 MMOL/L (3.5-5.1); SODIUM LEVEL 142 MMOL/L (136-145); THYROID STIMULATING HORMONE 1.323 uIU/ML (0.55-4.78); TOTAL PROTEIN 6.3 G/DL (5.7-8.2); TRIGLYCERIDES LEVEL 151 MG/DL (<150)
== END ==
LOC: M SFHCCLAY 11:09
PROVIDERS: ATTEND Nurse Practitioner Family
DX: R00.2 Palpitations (principal); E03.9 Hypothyroidism, unspecified; F41.8 Other specified anxiety disorders; Z13.220 Encounter for screening for lipoid disorders; Z79.899 Other long term (current) drug therapy

== ENCOUNTER → 2024-01-22 | Outpatient (CLI) | payer OTHER, MEDICAID | LOC: M PLAIMG 09:35 | PROVIDERS: ATTEND Nurse Practitioner Family | DX: R00.2 Palpitations (principal) ==

== ENCOUNTER → 2024-02-05 | Outpatient (CLI) | payer OTHER, MEDICAID | LOC: M WHC 08:25 | PROVIDERS: ATTEND Nurse Practitioner Family | DX: R74.8 Abnormal levels of other serum enzymes (principal); K76.0 Fatty (change of) liver, not elsewhere classified; N28.1 Cyst of kidney, acquired ==

== ENCOUNTER → 2024-05-07 | Outpatient (CLI) | payer OTHER, MEDICAID | LOC: M WUC 12:06 | PROVIDERS: ATTEND Nurse Practitioner Family | DX: M25.571 Pain in right ankle and joints of right foot (principal) ==

== ENCOUNTER → 2024-07-22 | Outpatient (REF) | payer MEDICARE, MEDICAID | LOC: M SFHCCLAY 11:41 | PROVIDERS: ATTEND Nurse Practitioner Family | DX: M79.671 Pain in right foot (principal); M45.9 Ankylosing spondylitis of unspecified sites in spine; B00.1 Herpesviral vesicular dermatitis; F41.9 Anxiety disorder, unspecified; F51.5 Nightmare disorder; F32.2 Major depressive disorder, single episode, severe without psychotic features; F43.10 Post-traumatic stress disorder, unspecified; E66.01 Morbid (severe) obesity due to excess calories; M25.50 Pain in unspecified joint ==

== ENCOUNTER → 2024-09-01 | Outpatient (CLI) | payer MEDICARE, MEDICAID | LOC: M WHC 09:10 | PROVIDERS: ATTEND Nurse Practitioner Family | DX: Z12.31 Encounter for screening mammogram for malignant neoplasm of breast (principal); R92.313 Mammographic fatty tissue density, bilateral breasts ==

== ENCOUNTER → 2024-11-17 | Outpatient (REF) | payer MEDICARE, MEDICAID ==
[2024-11-17 17:48] LABS: HEMATOCRIT 41.7 % (36.0-47.0); HEMOGLOBIN 13.3 g/dl (12.0-15.5); MEAN CORPUSCULAR HEMOGLOBIN 28.8 pg (27.0-33.0); MEAN CORPUSCULAR HGB CONC 31.9 g/dl (32.0-36.5); MEAN CORPUSCULAR VOLUME 90.3 fl (80.0-96.0); PLATELET COUNT, AUTOMATED 377 10^3/uL (150-450); RED BLOOD COUNT 4.62 10^6/uL (4.00-5.40); WHITE BLOOD COUNT 5.9 10^3/uL (4.0-10.0)
[2024-11-17 17:49] LABS: TOTAL IRON BINDING CAPACITY 349 UG/DL (250-425)
[2024-11-17 17:51] LABS: ALBUMIN 3.5 G/DL (3.2-5.2); ALKALINE PHOSPHATASE 124 U/L (35-104); ALT/SGPT 38 U/L (7.0-40); AST/SGOT 28 U/L (<34); BILIRUBIN,TOTAL 0.2 MG/DL (0.3-1.2); BLOOD UREA NITROGEN 8 MG/DL (9-23); CALCIUM LEVEL 8.8 MG/DL (8.5-10.1); CARBON DIOXIDE LEVEL 27 MMOL/L (20-31); CHLORIDE LEVEL 104 MMOL/L (98-107); CHOLESTEROL LEVEL 181 MG/DL (<200); CHOLESTEROL RISK RATIO 3.65 (<5); CREATININE FOR GFR 0.67 MG/DL (0.55-1.30); FERRITIN 32.7 NG/ML (7.3-270.7); FREE T4 0.79 NG/DL (0.89-1.76); GLOMERULAR FILTRATION RATE > 90.0 (>51); GLUCOSE, FASTING 84 MG/DL (60-100); HDL CHOLESTEROL 49.5 MG/DL (>40); IRON (FE) 85 UG/DL (50-170); LDL CHOLESTEROL 102.5 MG/DL (<100); NON-HDL-C 131.5 MG/DL; PERCENT SATURATION 24.4 % (13.2-45.0); POTASSIUM SERUM 4.3 MMOL/L (3.5-5.1); SODIUM LEVEL 140 MMOL/L (136-145); THYROID STIMULATING HORMONE 3.984 uIU/ML (0.55-4.78); TOTAL PROTEIN 6.4 G/DL (5.7-8.2); TRIGLYCERIDES LEVEL 145 MG/DL (<150)
[2024-11-17 18:11] LABS: HEMOGLOBIN A1c 5.4 % (4.0-6.0)
== END ==
LOC: M SFHCCLAY 10:53
PROVIDERS: ATTEND Nurse Practitioner Family
DX: R07.9 Chest pain, unspecified (principal); M45.9 Ankylosing spondylitis of unspecified sites in spine; F32.2 Major depressive disorder, single episode, severe without psychotic features; F43.10 Post-traumatic stress disorder, unspecified; E66.01 Morbid (severe) obesity due to excess calories; M25.50 Pain in unspecified joint; M79.671 Pain in right foot; M79.672 Pain in left foot; Z79.899 Other long term (current) drug therapy

== ENCOUNTER → 2025-04-22 | Outpatient (REF) | payer MEDICARE, MEDICAID ==
[~2025-04-22] MED LIST changes: -IBUP-1022 PO; +IBUP600T42 PO
[2025-04-22 17:31] LABS: ALT/SGPT 33 U/L (7.0-40); AST/SGOT 23 U/L (<34); CALCIUM LEVEL 8.8 MG/DL (8.5-10.1); CARBON DIOXIDE LEVEL 30 MMOL/L (20-31); CHLORIDE LEVEL 106 MMOL/L (98-107); CHOLESTEROL LEVEL 163 MG/DL (<200); CHOLESTEROL RISK RATIO 3.35 (<5); CREATININE FOR GFR 0.68 MG/DL (0.55-1.30); GLOMERULAR FILTRATION RATE > 90.0 (>51); LDL CHOLESTEROL 90.6 MG/DL (<100); NON-HDL-C 114.4 MG/DL; POTASSIUM SERUM 4.2 MMOL/L (3.5-5.1); SODIUM LEVEL 144 MMOL/L (136-145); TRIGLYCERIDES LEVEL 119 MG/DL (<150)
[2025-04-22 17:33] LABS: FREE T4 1.18 NG/DL (0.89-1.76)
[2025-04-22 17:49] LABS: ESTIMATED AVERAGE GLUCOSE 105.0 MG/DL (60-110)
== END ==
LOC: M SFHCCLAY 09:50
PROVIDERS: ATTEND Nurse Practitioner Family
DX: M45.9 Ankylosing spondylitis of unspecified sites in spine (principal); B00.1 Herpesviral vesicular dermatitis; F41.9 Anxiety disorder, unspecified; F51.5 Nightmare disorder; F32.2 Major depressive disorder, single episode, severe without psychotic features; F43.10 Post-traumatic stress disorder, unspecified; E66.01 Morbid (severe) obesity due to excess calories; M25.50 Pain in unspecified joint; Z79.899 Other long term (current) drug therapy

== ENCOUNTER → 2025-06-21 | Outpatient (CLI) | payer MEDICARE, MEDICAID | LOC: M PLAIMG 10:55 | PROVIDERS: ATTEND Internal Medicine Pulmonary Disease | DX: R91.8 Other nonspecific abnormal finding of lung field (principal) ==